=== PATIENT | female | born 1940 | race Caucasian/White ===

== ENCOUNTER 2018-04-11 13:10 | Emergency (ER) | payer MEDICARE, BC ==
--- NOTE | 2018-04-11 14:35 | ED ---
Skin/Abscess/FB HPI - General Source: patient, RN notes reviewed, old records reviewed Mode of arrival: ambulatory Limitations: no limitations <Yumiko Gloria - Last Filed: 04/13/18 08:39> <Amadeo Stauffer - Last Filed: 04/15/18 07:16> - General Chief complaint: Skin/Abscess/Foreign Body Stated complaint: Rash Time Seen by Provider: 04/11/18 13:36 - History of Present Illness Initial comments: This is a 77 year old female with CC of Right thumb swelling and redness streaking up her arm for 2 days. She reports she recently transplanted a plant into another pot. She has no recollection of bite or exposure to poison yelitza or oak. Denies any other symptoms at this time, including fever or chills. ( Yumiko Gloria) - Related Data Home Medications Medication Instructions Recorded Confirmed ALPRAZolam [Xanax] 0.5 mg PO HS PRN 06/08/15 06/08/15 Albuterol Nebulized [Ventolin 2.5 mg INHALATION RT-Q6H PRN 06/08/15 06/08/15 Nebulized] Aspirin 325 mg PO DAILY 06/08/15 06/08/15 Budesonide-Formot 160-4.5 Mcg 2 puff INHALATION RT-BID 06/08/15 06/08/15 [Symbicort 160-4.5 Mcg Inhaler] Levothyroxine Sodium [Synthroid] 112 mcg PO DAILY 06/08/15 06/08/15 Lisinopril [Prinivil] 20 mg PO DAILY 06/08/15 06/08/15 Metoprolol Tartrate [Lopressor] 50 mg PO BID 06/08/15 06/08/15 Montelukast [Singulair] 10 mg PO HS 06/08/15 06/08/15 Propylene Glycol/Peg 400/Pf 2 drop BOTH EYES Q4H 06/08/15 06/08/15 [Systane 0.3-0.4% Eye Drops] Simvastatin [Zocor] 40 mg PO HS 06/08/15 06/08/15 amLODIPine [Norvasc] 5 mg PO DAILY 06/08/15 06/08/15 Previous Rx's Medication Instructions Recorded Levofloxacin [Levaquin] 750 mg PO DAILY #7 tab 09/28/15 Sulfamethox-Tmp 800-160Mg [Bactrim 2 tab PO Q12HR 10 Days 04/11/18 DS 800-160 mg] Allergies Allergy/AdvReac Type Severity Reaction Status Date / Time Iodinated Contrast- Oral and Allergy Unknown Verified 04/11/18 13:22 IV Dye [Iodinated Contrast Media - IV Dye] nickel Allergy Unknown Verified 04/11/18 13:22 Penicillins Allergy Unknown Verified 04/11/18 13:22 Review of Systems ROS Other: All systems not noted in ROS Statement are negative. <Yumiko Gloria - Last Filed: 04/13/18 08:39> ROS Other: All systems not noted in ROS Statement are negative. <Amadeo Stauffer - Last Filed: 04/15/18 07:16> ROS Statement: Those systems with pertinent positive or pertinent negative responses have been documented in the HPI. Past Medical History Past Medical History: Asthma, COPD, GERD/Reflux, Hyperlipidemia, Hypertension, Myocardial Infarction (NE), Osteoarthritis (OA), Pneumonia, Skin Disorder, Thyroid Disorder Additional Past Medical History / Comment(s): leaky heart valve, palpatations, arthiritis, 15 pne. 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 HAS BEEN COUGHING X 1 WEEK HARSHLY AND SPUTUM STARTED OUT CLEAR BUT STATED BROUGHT UP SOME BLOOD(DENIED IT BRIENG STREKS OF BLOOD IN SPUTUM BUT RATHER A CLOT OF BLOOD. 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 Carpal tunnel Past Anesthesia/Blood Transfusion Reactions: No Reported Reaction Additional Past Anesthesia/Blood Transfusion Reaction / Comment(s): occ vertigo Past Psychological History: No Psychological Hx Reported Smoking Status: Former smoker Past Alcohol Use History: None Reported Past Drug Use History: None Reported - Past Family History Father Additional Family Medical History / Comment(s): from tb at age 44 Mother Family Medical History: Hypertension Additional Family Medical History / Comment(s): had an enlarged heart - age 64(was'nt one to go to dr) <Yumiko Gloria - Last Filed: 04/13/18 08:39> General Exam Limitations: no limitations General appearance: alert, in no apparent distress Head exam: Present: atraumatic, normocephalic, normal inspection ENT exam: Present: normal exam, mucous membranes moist Neck exam: Present: normal inspection. Absent: tenderness, meningismus, lymphadenopathy Respiratory exam: Present: normal lung sounds bilaterally. Absent: respiratory distress, wheezes, rales, rhonchi, stridor Cardiovascular Exam: Present: regular rate, normal rhythm, normal heart sounds. Absent: systolic murmur, diastolic murmur, rubs, gallop, clicks Extremities exam: Present: normal inspection, full ROM, normal capillary refill , other (Patient has swelling over left thumb, and lymphangitic streaking over wrist. No pain with ROM. ). Absent: tenderness, pedal edema, joint swelling, calf tenderness <Yumiko Gloria - Last Filed: 04/13/18 08:39> <Amadeo Stauffer - Last Filed: 04/15/18 07:16> - General Exam Comments Initial Comments: Well appearing 77 year old female, no distress (Yumiko Gloria) Course <Yumiko Gloria - Last Filed: 04/13/18 08:39> <Amadeo Stauffer - Last Filed: 04/15/18 07:16> Vital Signs 04/11/18 04/11/18 13:20 14:52 Temperature 97.6 F 97 F L Pulse Rate 90 89 Respiratory 18 16 Rate Blood Pressure 172/80 157/88 O2 Sat by Pulse 100 95 Oximetry - Reevaluation(s) Reevaluation #1: 04/15/18 07:16 PA supervision I reviewed and agree with the PAs findings including all diagnostic interpretation treatment plans less otherwise stated. (Amadeo Stauffer) Medical Decision Making <Yumiko Gloria - Last Filed: 04/13/18 08:39> <Amadeo Stauffer - Last Filed: 04/15/18 07:16> - Medical Decision Making Patient is a 77 year old female with R thumb swelling for 2 days with lymphangitic streaking. Patient has evidecne of cellulits. Patient does not know if she was bite by a spider. At this time, she has 2 small puncture wounds. Patient at had demarcation of area of erythema and streaking. At this time will start on antibiotics, and have her follow up with PCP. REturn parameters discussed. (Yumiko Gloria) Disposition Is patient prescribed a controlled substance at d/c from ED?: No Time of Disposition: 14:34 <Yumiko Gloria - Last Filed: 04/13/18 08:39> <Amadeo Stauffer - Last Filed: 04/15/18 07:16> Clinical Impression: Cellulitis of thumb, right Disposition: HOME SELF-CARE Condition: Good Instructions: Lymphangitis (ED) Additional Instructions: Patient advised to take anti-inflammatory medication Motrin Tylenol, take antibiotic as prescribed. If you have severe pain with range of motion of the thumb or any other abnormal symptoms please return to the emergency department. Patient should monitor the area of redness gets worse to return to the emergency department. Prescriptions: Sulfamethox-Tmp 800-160Mg [Bactrim DS 800-160 mg] 2 tab PO Q12HR 10 Days Referrals: Ida Davis MD [Primary Care Provider] - 1-2 days
[2018-04-11] MEDS ORDERED: SULFAMETH-TMP DS STARTER PACK 2 TAB BTL PO STA (14:39)
[2018-04-11 14:52] VITALS: BP 157/88; PULSE 89; RESP 16; TEMP 97
== END 2018-04-11 14:54 | disposition home or self-care (01) ==
LOC: EC 13:10
DX: L03.011 Cellulitis of right finger (principal); S61.031A Puncture wound without foreign body of right thumb without damage to nail, initial encounter; J44.9 Chronic obstructive pulmonary disease, unspecified; E78.5 Hyperlipidemia, unspecified; I10 Essential (primary) hypertension; I25.2 Old myocardial infarction; E07.9 Disorder of thyroid, unspecified; Z87.891 Personal history of nicotine dependence; Z98.890 Other specified postprocedural states; Z79.51 Long term (current) use of inhaled steroids; Z79.899 Other long term (current) drug therapy; Z88.0 Allergy status to penicillin; Z91.041 Radiographic dye allergy status; Z91.048 Other nonmedicinal substance allergy status; X58.XXXA Exposure to other specified factors, initial encounter
CPT/HCPCS: 99283

== ENCOUNTER 2019-02-07 16:09 | Inpatient (IN) | payer MEDICARE, BC ==
--- NOTE | 2019-02-07 16:31 | ED ---
Chest Pain HPI - General Chief Complaint: Chest Pain Stated Complaint: CHEST PAIN Time Seen by Provider: 02/07/19 16:20 Source: patient, EMS Mode of arrival: EMS Limitations: no limitations - History of Present Illness Initial Comments: 78-year-old female presenting with substernal sharp stabbing chest pain that began while at rest, was not accompanied by any anginal equivalents, and resolved after she was given nitro and aspirin by EMS. She is currently asymptomatic. Patient states she is a history of one MD with no stent placement. She had a normal stress test one year prior. She denies any history of DVT/PE, recent surgery, active cancer, hormone replacement therapy. States she has a ALLERGY to IV contrast (breaks out in a rash.) She admits to productive cough, nasal congestion, postnasal drip for the past 3 days. Admits to unilateral left lower extremity swelling that resolves with elevation and worsens when she is walking. - Related Data Home Medications Medication Instructions Recorded Confirmed ALPRAZolam [Xanax] 0.5 mg PO HS 06/08/15 02/07/19 Aspirin 325 mg PO DAILY 06/08/15 02/07/19 Lisinopril [Prinivil] 20 mg PO DAILY 06/08/15 02/07/19 Metoprolol Tartrate [Lopressor] 50 mg PO BID 06/08/15 02/07/19 Montelukast [Singulair] 10 mg PO HS 06/08/15 02/07/19 Simvastatin [Zocor] 40 mg PO HS 06/08/15 02/07/19 amLODIPine [Norvasc] 5 mg PO DAILY 06/08/15 02/07/19 Albuterol Inhaler [Ventolin Hfa 1 - 2 puff INHALATION RT-Q6H PRN 02/07/19 02/07/19 Inhaler] Cholecalciferol [Vitamin D3 (25 5,000 unit PO DAILY 02/07/19 02/07/19 Mcg = 1000 Iu)] Fluticasone/Salmeterol [Advair 1 inhalation PO RT-BID 02/07/19 02/07/19 250-50 Diskus] Levothyroxine Sodium [Synthroid] 100 mcg PO DAILY 02/07/19 02/07/19 Melatonin 5 mg PO HS 02/07/19 02/07/19 Multivitamin/Iron/Folic Acid 1 tab PO DAILY 02/07/19 02/07/19 [Centrum Women Tablet] metFORMIN HCL 1,000 mg PO DAILY 02/07/19 02/07/19 Allergies Allergy/AdvReac Type Severity Reaction Status Date / Time Iodinated Contrast- Oral and Allergy Unknown Verified 02/07/19 18:08 IV Dye [Iodinated Contrast Media - IV Dye] nickel Allergy Unknown Verified 02/07/19 18:08 Penicillins Allergy Unknown Verified 02/07/19 18:08 Review of Systems ROS Statement: Those systems with pertinent positive or pertinent negative responses have been documented in the HPI. Review of Systems Constitutional: Denies fever, chills Eyes: Denies change in vision, Denies pain Ears, nose, mouth, throat: Denies headaches, Denies sore throat Cardiovascular: Positive chest pain. Denies palpitations. Positive LLE swelling Respiratory: Denies shortness of breath, Positive cough Gastrointestinal: Denies abdominal pain. Denies nausea, vomiting, diarrhea. Genitourinary: Denies hematuria, Denies infections Musculoskeletal: Denies pain, Denies swelling Integumentary: Denies rash Neurological: Denies headache, focal weakness, focal numbness Psychiatric: Denies anxiety, Denies depression Hematologic/Lymphatic: Denies easy bleeding or bruising ROS Other: All systems not noted in ROS Statement are negative. EKG Findings - EKG Comments: EKG Findings:: EKG shows sinus rhythm with first-degree AV block. Rate 96 bpm, AL interval 214, QRS duration 86, QT/QTC 342/432. Past Medical History Past Medical History: Asthma, COPD, GERD/Reflux, Hyperlipidemia, Hypertension, Myocardial Infarction (MD), Osteoarthritis (OA), Pneumonia, Skin Disorder, Thyroid Disorder Additional Past Medical History / Comment(s): leaky heart valve, palpatations, arthiritis, 06-08-15 pne. 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 Carpal tunnel Past Anesthesia/Blood Transfusion Reactions: No Reported Reaction Additional Past Anesthesia/Blood Transfusion Reaction / Comment(s): occ vertigo Past Psychological History: No Psychological Hx Reported Smoking Status: Former smoker Past Alcohol Use History: None Reported Past Drug Use History: None Reported - Past Family History Father Additional Family Medical History / Comment(s): from tb at age 44 Mother Family Medical History: Hypertension Additional Family Medical History / Comment(s): had an enlarged heart - age 64(was'nt one to go to dr) General Exam - General Exam Comments Initial Comments: General: Awake, alert, No acute Distress HENT: Normocephalic. Atraumatic Eyes: PERRL. EOMI. No scleral icterus. No injected conjunctiva Neck: Full ROM Chest/Lungs: Clear to auscultation bilaterally. No wheezing, rhonchi, or rales Cardiac: Regular rate, rhythm. No murmurs or rubs Abdomen/GI: Soft, nontender, nondistended. No rebound, guarding, or rigidity. Musculoskeletal: Full ROM Skin: Warm, dry, intact Neurologic: A/Ox3, no weakness, no sensory deficit, no abnormal gait, no coordination deficit Limitations: no limitations Course Vital Signs 02/07/19 02/07/19 02/07/19 16:17 16:29 16:52 Temperature 97.8 F Pulse Rate 94 96 Respiratory 18 18 Rate Blood Pressure 194/97 192/86 O2 Sat by Pulse 94 L 93 L 89 L Oximetry 02/07/19 17:30 Temperature Pulse Rate 98 Respiratory 18 Rate Blood Pressure 170/89 O2 Sat by Pulse 96 Oximetry Chest Pain MDM - MDM 78-year-old female presenting with chest pain. Initial exam the patient is awake alert she is in no acute distress her vital signs are stable. EKG shows normal sinus rhythm.No ST segment elevation, depression. Patient became hypoxic on the department dropping down to 88%. She is placed on 3 L nasal cannula. She had no further chest pain on the department. Patient's laboratory workup revealed hyponatremia but otherwise was negative for acute process. Serum and urine osmo added to workup. Her d-dimer was negative. She has no swelling or calf tenderness on exam. Patient states she has some remote history of asthma however on exam she has no wheezing, no abnormal breath sounds, and no tachypnea. Patient's chest x-ray shows a left lower lobe infiltrate. She was started on Rocephin and azithromycin. Does not meet sepsis criteria. I spoke with Dr. Ponce who is agreeable to admission. - Wells Criteria Clinical Symptoms of DVT: (0) No No Alternative Diagnosis: (0) No Immobilization of Surgery in Previous 4 Weeks: (0) No Previous DVT/PE: (0) No Hemoptysis: (0) No Malignancy: (0) No Disposition Clinical Impression: CAP (community acquired pneumonia), Hyponatremia, Chest pain, Hypoxia Disposition: ADMITTED IP TO THIS [facility] Decision to Admit Reason: Admit from EC Decision Date: 02/07/19 Decision Time: 18:14
[2019-02-07 16:56] LABS: Basophils % (A) 0 %; Eosinophils # (A) 0.1 k/uL (0-0.7); Eosinophils % (A) 2 %; HCT 46.4 % (34.0-46.0); HGB 15.7 gm/dL (11.4-16.0); Lymphocytes # (A) 1.8 k/uL (1.0-4.8); Lymphocytes % (A) 24 %; MCH 27.9 pg (25.0-35.0); MCHC 33.8 g/dL (31.0-37.0); MCV 82.3 fL (80.0-100.0); Mean Platelet Volume 6.5; Monocytes # (A) 0.4 k/uL (0-1.0); Monocytes % (A) 6 %; Neutrophils % (A) 66 %; Platelet Count 319 k/uL (150-450); RBC 5.64 m/uL (3.80-5.40); WBC 7.6 k/uL (3.8-10.6)
[2019-02-07 17:11] LABS: ALT 30 U/L (9-52); AST 37 U/L (14-36); Albumin 4.7 g/dL (3.5-5.0); Alkaline Phosphatase 62 U/L (38-126); Anion Gap 13 mmol/L; Bilirubin, Delta 0.3 mg/dL (0.0-0.2); Bilirubin,Unconjugated 0.4 mg/dL (0.0-1.1); Blood Urea Nitrogen 11 mg/dL (7-17); Carbon Dioxide 24 mmol/L (22-30); Chloride 89 mmol/L (98-107); Glucose 129 mg/dL (74-99); Lipase 207 U/L (23-300); Sodium 126 mmol/L (137-145); Total Bilirubin 0.7 mg/dL (0.2-1.3); Total Protein 7.1 g/dL (6.3-8.2)
[2019-02-07 17:13] LABS: Potassium 4.5 mmol/L (3.5-5.1)
[2019-02-07] MEDS ORDERED: cefTRIAXone IN SWFI 1,000 MG/10 ML SYRINGE IVP STA (17:56)
[2019-02-07] MEDS ORDERED: AZITHROMYCIN 500 MG in SODIUM CHLORIDE 0.9% 250 ML IVPB STA ×2 (17:58→19:55)
[2019-02-07] MEDS ORDERED: IBUPROFEN 400 MG TAB PO PRN (18:14)
[2019-02-07] MEDS ORDERED: HYDROcodone/APAP 5-325MG 1 EACH TAB PO PRN (18:14)
[2019-02-07] MEDS ORDERED: ONDANSETRON 4 MG/2 ML VIAL IVP PRN (18:14)
[2019-02-07] MEDS ORDERED: NALOXONE 0.4 MG/ML 1 ML VIAL IV PRN (18:14)
[2019-02-07] MEDS ORDERED: ALBUTEROL NEBULIZED 2.5 MG/3 ML INHALATION PRN (18:17)
--- NOTE | 2019-02-07 18:20 | XR ---
EXAMINATION TYPE: XR chest 2V DATE OF EXAM: 02/07/2019 COMPARISON: 06/12/2015 INDICATION: Pain TECHNIQUE: Frontal and lateral views of the chest are obtained. FINDINGS: The heart size is normal. The pulmonary vasculature is normal. There may be a lingular infiltrate. Increased lung markings are in the left perihilar midlung. Nodules in the left upper lobe estimated at 0.7 cm. This is larger than comparison. Follow-up CT ches t is recommended. Emphysematous changes are at the lung apices.. IMPRESSION: 1. Lingular infiltrate. Correlate for atelectasis or pneumonia. 2. Increasing pulmonary nodule size left upper lobe. CT of chest recommended for additional evaluatio n. Neoplasm is not excluded. 3. Upper lobe emphysematous changes.
[2019-02-07 19:53] LABS: Appearance,Urine Clear (Clear); Bilirubin,Urine Negative (Negative); Blood,Urine Negative (Negative); Color,Urine Colorless; Glucose,Urine (UA) Negative (Negative); Ketones,Urine Negative (Negative); Leukocyte Esterase,Urine Negative (Negative); Nitrite,Urine Negative (Negative); PH, Urine 7.5 (5.0-8.0); Protein,Urine Trace (Negative); Specific Gravity,Urine 1.005 (1.001-1.035); Urobilinogen,Urine <2.0 mg/dL (<2.0)
[2019-02-07] MEDS: SYMBICORT 80-4.5 MCG INHALER INHALATION SCH (20:07)
[2019-02-07 21:02] VITALS: BMI 32.4
[2019-02-07] MEDS: MONTELUKAST 10 MG TAB PO SCH (21:13)
[2019-02-07] MEDS: MELATONIN 5 MG TABLET PO SCH (21:13)
[2019-02-07] MEDS: ALPRAZolam 0.5 MG TAB PO SCH (21:13)
[2019-02-07] MEDS: METOPROLOL TARTRATE 50 MG TAB PO SCH (21:14)
[2019-02-07] MEDS: ATORVASTATIN 20 MG TAB PO SCH (21:14)
[2019-02-08 05:48] LABS: Glucose,Whole Blood 110 mg/dL (75-99)
[2019-02-08] MEDS: ACETAMINOPHEN TAB 325 MG TAB PO PRN ×2 (06:00→14:23)
[2019-02-08] MEDS: metFORMIN 500 MG TAB PO SCH (06:00)
[2019-02-08] MEDS: LEVOTHYROXINE 100 MCG TAB PO SCH (06:00)
[2019-02-08] MEDS: SYMBICORT 80-4.5 MCG INHALER INHALATION SCH ×2 (08:40→20:23)
[2019-02-08] MEDS: MULTIVITAMINS, THERA 1 EACH TAB PO SCH (09:59)
[2019-02-08] MEDS: METOPROLOL TARTRATE 50 MG TAB PO SCH ×2 (09:59→17:07)
[2019-02-08] MEDS: CHOLECALCIFEROL 1,000 UNIT TAB PO SCH (09:59)
[2019-02-08] MEDS: amLODIPine 5 MG TAB PO SCH (09:59)
[2019-02-08] MEDS: LISINOPRIL 20 MG TAB PO SCH (10:00)
[2019-02-08 11:44] LABS: Glucose,Whole Blood 107 mg/dL (75-99)
--- NOTE | 2019-02-08 12:17 | P.CRDCN ---
History of Present Illness Consult date: 02/08/19 Chief complaint: Chest pain History of present illness: This is a pleasant 78-year-old female patient who I follow in the office as an outpatient with a past medical history significant for diabetes, hypertension, and dyslipidemia, presented to the emergency room complaining of chest discomfort. The chest discomfort started this past Friday when she was doing some shopping and started experiencing discomfort in the mid of the chest, sharp pain, without any radiation to the arm or neck or shoulders, and without any associated symptoms of shortness of breath, sweating, nausea or vomiting, or syncope. The patient did have another episode yesterday. Again she had another episode earlier today. Because of that she decided to come to the emergency room. She stated that she has been struggling with upper respiratory infection recently with sore throat and runny nose and lately she has been experiencing also some cough with some sputum. No fever and no chills. The EKG showed sinus rhythm without any ischemic ST or T-wave abnormalities. The cardiac enzymes were checked and came in to be unremarkable. The chest x-ray showed what it seems to be possible and pneumonia. Currently the patient is on antibiotic with azithromycin as well as Rocephin. The last stress test was performed as an outpatient more than a year ago. Past Medical History Past Medical History: Asthma, COPD, GERD/Reflux, Hyperlipidemia, Hypertension, Myocardial Infarction (CA), Osteoarthritis (OA), Pneumonia, Skin Disorder, Thyroid Disorder Additional Past Medical History / Comment(s): leaky heart valve, palpatations, arthiritis, 924-15 pne. 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 Carpal tunnel Past Anesthesia/Blood Transfusion Reactions: No Reported Reaction Additional Past Anesthesia/Blood Transfusion Reaction / Comment(s): occ vertigo Past Psychological History: No Psychological Hx Reported Smoking Status: Former smoker Past Alcohol Use History: None Reported Past Drug Use History: None Reported - Past Family History Father Additional Family Medical History / Comment(s): from tb at age 44 Mother Family Medical History: Hypertension Additional Family Medical History / Comment(s): had an enlarged heart - age 64(was'nt one to go to dr) Medications and Allergies Home Medications Medication Instructions Recorded Confirmed Type ALPRAZolam [Xanax] 0.5 mg PO HS 06/08/15 02/07/19 History Aspirin 325 mg PO DAILY 06/08/15 02/07/19 History Lisinopril [Prinivil] 20 mg PO DAILY 06/08/15 02/07/19 History Metoprolol Tartrate [Lopressor] 50 mg PO BID 06/08/15 02/07/19 History Montelukast [Singulair] 10 mg PO HS 06/08/15 02/07/19 History Simvastatin [Zocor] 40 mg PO HS 06/08/15 02/07/19 History amLODIPine [Norvasc] 5 mg PO BID 06/08/15 02/07/19 History Albuterol Inhaler [Ventolin Hfa 1 - 2 puff INHALATION RT-Q6H PRN 02/07/19 02/07/19 History Inhaler] Cholecalciferol [Vitamin D3 (25 5,000 unit PO DAILY 02/07/19 02/07/19 History Mcg = 1000 Iu)] Fluticasone/Salmeterol [Advair 1 inhalation PO RT-BID 02/07/19 02/07/19 History 250-50 Diskus] Levothyroxine Sodium [Synthroid] 100 mcg PO DAILY 02/07/19 02/07/19 History Melatonin 5 mg PO HS 02/07/19 02/07/19 History Multivitamin/Iron/Folic Acid 1 tab PO DAILY 02/07/19 02/07/19 History [Centrum Women Tablet] metFORMIN HCL 1,000 mg PO DAILY 02/07/19 02/07/19 History Hydrochlorothiazide 25 mg PO DAILY 02/08/19 02/08/19 History Allergies Allergy/AdvReac Type Severity Reaction Status Date / Time Iodinated Contrast- Oral and Allergy Unknown Verified 02/07/19 18:08 IV Dye [Iodinated Contrast Media - IV Dye] nickel Allergy Unknown Verified 02/07/19 18:08 Penicillins Allergy Unknown Verified 02/07/19 18:08 Latex, Natural Rubber AdvReac Rash/Hives Verified 02/08/19 00:03 tuberculin,PPD,multi-puncture AdvReac Rash/Hives Verified 02/08/19 00:03 Physical Exam Vitals: Vital Signs Temp Pulse Pulse Resp BP BP Pulse Ox 02/08/19 09:57 97.6 F 86 16 144/73 93 L 02/08/19 04:00 75 16 155/76 97 02/08/19 00:00 77 18 107/67 97 02/07/19 20:00 98 20 02/07/19 19:53 102 H 20 144/90 95 02/07/19 18:31 97.8 F 98 18 159/79 96 02/07/19 17:30 98 18 170/89 96 02/07/19 16:52 89 L 02/07/19 16:29 96 18 192/86 93 L 02/07/19 16:17 97.8 F 94 18 194/97 94 L Intake and Output 02/07/19 02/08/19 02/08/19 22:59 06:59 14:59 Intake Total 300 240 Balance 300 240 Intake: Oral 300 240 Other: Voiding Method Toilet # Voids 1 1 Weight 80.739 kg 83.1 kg - Constitutional General appearance: no acute distress - Respiratory Respiratory: bilateral: CTA - Cardiovascular Rhythm: regular Heart sounds: normal: S1, S2 Results 02/07/19 16:13 02/07/19 16:13 Cardiac Enzymes 02/07/19 02/07/19 02/07/19 Range/Units 16:13 16:13 21:33 AST 37 H (14-36) U/L Troponin I <0.012 <0.012 (0.000-0.034) ng/mL 02/08/19 Range/Units 04:06 AST (14-36) U/L Troponin I <0.012 (0.000-0.034) ng/mL CBC 02/07/19 Range/Units 16:13 WBC 7.6 (3.8-10.6) k/uL RBC 5.64 H (3.80-5.40) m/uL Hgb 15.7 (11.4-16.0) gm/dL Hct 46.4 H (34.0-46.0) % Plt Count 319 (150-450) k/uL Comprehensive Metabolic Panel 02/07/19 Range/Units 16:13 Sodium 126 L (137-145) mmol/L Potassium 4.5 (3.5-5.1) mmol/L Chloride 89 L (98-107) mmol/L Carbon Dioxide 24 (22-30) mmol/L BUN 11 (7-17) mg/dL Creatinine 0.62 (0.52-1.04) mg/dL Glucose 129 H (74-99) mg/dL Calcium 10.0 (8.4-10.2) mg/dL Unconjugated Bilirubin 0.4 (0.0-1.1) mg/dL AST 37 H (14-36) U/L ALT 30 (9-52) U/L Alkaline Phosphatase 62 (38-126) U/L Total Protein 7.1 (6.3-8.2) g/dL Albumin 4.7 (3.5-5.0) g/dL Current Medications Generic Name Dose Route Start Last Admin Trade Name Freq PRN Reason Stop Dose Admin Acetaminophen 650 mg 02/07/19 18:14 02/08/19 06:00 Tylenol Tab PO 650 mg Q6HR PRN Administration Mild Pain or Fever > 100.5 Hydrocodone Bitart/Acetaminophen 1 each 02/07/19 18:14 Winston 5-325 PO Q4HR PRN Moderate Pain Albuterol Sulfate 2.5 mg 02/07/19 18:17 Ventolin Nebulized INHALATION RT-Q6H PRN Shortness Of Breath Alprazolam 0.5 mg 02/07/19 21:00 02/07/19 21:13 Xanax PO 0.5 mg HS JUDY Administration Amlodipine Besylate 5 mg 02/08/19 09:00 02/08/19 09:59 Norvasc PO 5 mg DAILY JUDY Administration Aspirin 325 mg 02/08/19 10:00 Aspirin PO DAILY JUDY Atorvastatin Calcium 20 mg 02/07/19 21:00 02/07/19 21:14 Lipitor PO 20 mg HS JUDY Administration Azithromycin 500 mg 02/08/19 11:45 Zithromax PO DAILY JUDY Budesonide/Formoterol Fumarate 2 puff 02/07/19 20:00 02/08/19 08:40 Symbicort 80-4.5 Mcg Inhaler INHALATION 2 puff RT-BID JUDY Administration Cholecalciferol 5,000 unit 02/08/19 09:00 02/08/19 09:59 Vitamin D3 (25 Mcg = 1000 Iu) PO 5,000 unit DAILY JUDY Administration Sodium Chloride 1,000 mls @ 100 mls/hr 02/08/19 11:45 Saline 0.9% IV .Q10H JUDY Ibuprofen 400 mg 02/07/19 18:14 Motrin PO Q6HR PRN Mild Pain or Fever > 100.5 Levothyroxine Sodium 100 mcg 02/08/19 06:30 02/08/19 06:00 Synthroid PO 100 mcg DAILY@0630 JUDY Administration Lisinopril 20 mg 02/08/19 09:00 02/08/19 10:00 Zestril PO 20 mg DAILY JUDY Administration Melatonin 5 mg 02/07/19 21:00 02/07/19 21:13 Melatonin PO 5 mg HS JUDY Administration Metformin HCl 1,000 mg 02/08/19 07:30 02/08/19 06:00 Glucophage PO 1,000 mg [id number] JUDY Administration Metoprolol Tartrate 50 mg 02/07/19 21:00 02/08/19 09:59 Lopressor PO 50 mg BID JUDY Administration Montelukast Sodium 10 mg 02/07/19 21:00 02/07/19 21:13 Singulair PO 10 mg HS JUDY Administration Multivitamins 1 each 02/08/19 09:00 02/08/19 09:59 Theragran PO 1 each DAILY JUDY Administration Naloxone HCl 0.2 mg 02/07/19 18:14 Narcan IV Q2M PRN Opioid Reversal Ondansetron HCl 4 mg 02/07/19 18:14 Zofran IVP Q8HR PRN Nausea And Vomiting Intake and Output 02/07/19 02/08/19 02/08/19 22:59 06:59 14:59 Intake Total 300 240 Balance 300 240 Intake: Oral 300 240 Other: Voiding Method Toilet # Voids 1 1 Weight 80.739 kg 83.1 kg 02/07/19 16:13 02/07/19 16:13 Assessment and Plan Assessment: Assessment #1 intermittent episodes of chest discomfort #2 possible pneumonia #3 diabetes type 2 #4 hypertension #5 dyslipidemia Plan #1 the patient is on antibiotic for pneumonia #2 acute coronary event was ruled out #3 the chest discomfort could be secondary to pneumonia but severe CAD to be ruled out giving her multiple risk factors including diabetes #4 at this point, would get an echocardiogram was Doppler #5 follow-up with the patient. #6 stress test to be performed, likely to be done as an outpatient. Thank you for allowing us participate in her care and we will continue following up with the patient
--- NOTE | 2019-02-08 12:29 | P.HPIM ---
History of Present Illness 78-year-old female came to ER with complaints of chest pain started yesterday while she was shopping sharp in nature lasted for a few minutes does have chest wall tenderness and patient is chest pain appears to be coming from chest wall did not improve with the nitroglycerin denied any suspicious shortness of breath diaphoresis nausea vomiting lightheadedness chest pain and a sharp in nature in the retrosternal area nonradiating and not associated with food as a deep breathing. Patient had a cardiac history in the past with the stents in the past. Patient EKG did not show any acute ST-T wave changes troponins are negative. Patient incidentally found to have infiltrate in the right the lingular area which I reviewed by myself and not that impressive and patient does have very minimal sputum production which is not dark in color I do not believe patient has pneumonia. The other issue is her serum sodium is 126. Patient on hydrocodone present that will be held patient will be hydrated with IV fluids will repeat serum sodium tomorrow if that's okay patient will be discharged tomorrow, patient also appears to have sinusitis for which patient will be started on azithromycin. Rocephin will be discontinued. Review of Systems REVIEW OF SYSTEMS: CONSTITUTIONAL: No fever, no malaise, no fatigue. HEENT: No recent visual problems or hearing problems. Denied any sore throat. CARDIOVASCULAR: No orthopnea, PND, no palpitations, no syncope. PULMONARY: No shortness of breath, no cough, no hemoptysis. GASTROINTESTINAL: No diarrhea, no nausea, no vomiting, no abdominal pain. NEUROLOGICAL: No headaches, no weakness, no numbness. HEMATOLOGICAL: Denies any bleeding or petechiae. GENITOURINARY: Denies any burning micturition, frequency, or urgency. MUSCULOSKELETAL/RHEUMATOLOGICAL: Denies any joint pain, swelling, or any muscle pain. ENDOCRINE: Denies any polyuria or polydipsia. The rest of the 14-point review of systems is negative. Past Medical History Past Medical History: Asthma, COPD, GERD/Reflux, Hyperlipidemia, Hypertension, Myocardial Infarction ([place]), Osteoarthritis (OA), Pneumonia, Skin Disorder, Thyroid Disorder Additional Past Medical History / Comment(s): leaky heart valve, palpatations, arthiritis, 9-24-15 pne. 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 Carpal tunnel Past Anesthesia/Blood Transfusion Reactions: No Reported Reaction Additional Past Anesthesia/Blood Transfusion Reaction / Comment(s): occ vertigo Past Psychological History: No Psychological Hx Reported Smoking Status: Former smoker Past Alcohol Use History: None Reported Past Drug Use History: None Reported - Past Family History Father Additional Family Medical History / Comment(s): from tb at age 44 Mother Family Medical History: Hypertension Additional Family Medical History / Comment(s): had an enlarged heart - age 64(was'nt one to go to dr) Medications and Allergies Home Medications Medication Instructions Recorded Confirmed Type ALPRAZolam [Xanax] 0.5 mg PO HS 06/08/15 02/07/19 History Aspirin 325 mg PO DAILY 06/08/15 02/07/19 History Lisinopril [Prinivil] 20 mg PO DAILY 06/08/15 02/07/19 History Metoprolol Tartrate [Lopressor] 50 mg PO BID 06/08/15 02/07/19 History Montelukast [Singulair] 10 mg PO HS 06/08/15 02/07/19 History Simvastatin [Zocor] 40 mg PO HS 06/08/15 02/07/19 History amLODIPine [Norvasc] 5 mg PO BID 06/08/15 02/07/19 History Albuterol Inhaler [Ventolin Hfa 1 - 2 puff INHALATION RT-Q6H PRN 02/07/19 02/07/19 History Inhaler] Cholecalciferol [Vitamin D3 (25 5,000 unit PO DAILY 02/07/19 02/07/19 History Mcg = 1000 Iu)] Fluticasone/Salmeterol [Advair 1 inhalation PO RT-BID 02/07/19 02/07/19 History 250-50 Diskus] Levothyroxine Sodium [Synthroid] 100 mcg PO DAILY 02/07/19 02/07/19 History Melatonin 5 mg PO HS 02/07/19 02/07/19 History Multivitamin/Iron/Folic Acid 1 tab PO DAILY 02/07/19 02/07/19 History [Centrum Women Tablet] metFORMIN HCL 1,000 mg PO DAILY 02/07/19 02/07/19 History Hydrochlorothiazide 25 mg PO DAILY 02/08/19 02/08/19 History Allergies Allergy/AdvReac Type Severity Reaction Status Date / Time Iodinated Contrast- Oral and Allergy Unknown Verified 02/07/19 18:08 IV Dye [Iodinated Contrast Media - IV Dye] nickel Allergy Unknown Verified 02/07/19 18:08 Penicillins Allergy Unknown Verified 02/07/19 18:08 Latex, Natural Rubber AdvReac Rash/Hives Verified 02/08/19 00:03 tuberculin,PPD,multi-puncture AdvReac Rash/Hives Verified 02/08/19 00:03 Physical Exam Vitals: Vital Signs Temp Pulse Pulse Resp BP BP Pulse Ox 02/08/19 09:57 97.6 F 86 16 144/73 93 L 02/08/19 04:00 75 16 155/76 97 02/08/19 00:00 77 18 107/67 97 02/07/19 20:00 98 20 02/07/19 19:53 102 H 20 144/90 95 02/07/19 18:31 97.8 F 98 18 159/79 96 02/07/19 17:30 98 18 170/89 96 02/07/19 16:52 89 L 02/07/19 16:29 96 18 192/86 93 L 02/07/19 16:17 97.8 F 94 18 194/97 94 L Intake and Output 02/07/19 02/08/19 02/08/19 22:59 06:59 14:59 Intake Total 300 240 Balance 300 240 Intake: Oral 300 240 Other: Voiding Method Toilet # Voids 1 1 Weight 80.739 kg 83.1 kg PHYSICAL EXAMINATION: GENERAL: The patient is alert and oriented x3, not in any acute distress. Well developed, well nourished. HEENT: Pupils are round and equally reacting to light. EOMI. No scleral icterus. No conjunctival pallor. Normocephalic, atraumatic. No pharyngeal erythema. No thyromegaly. CARDIOVASCULAR: S1 and S2 present. No murmurs, rubs, or gallops. PULMONARY: Chest is clear to auscultation, no wheezing or crackles. Does have chest wall tenderness ABDOMEN: Soft, nontender, nondistended, normoactive bowel sounds. No palpable organomegaly. MUSCULOSKELETAL: No joint swelling or deformity. EXTREMITIES: No cyanosis, clubbing, or pedal edema. NEUROLOGICAL: Gross neurological examination did not reveal any focal deficits. SKIN: No rashes. Results CBC & Chem 7: 02/07/19 16:13 02/07/19 16:13 Labs: Abnormal Lab Results - Last 24 Hours (Table) 02/07/19 02/07/19 02/07/19 Range/Units 16:13 16:13 19:20 RBC 5.64 H (3.80-5.40) m/uL Hct 46.4 H (34.0-46.0) % Sodium 126 L (137-145) mmol/L Chloride 89 L (98-107) mmol/L Glucose 129 H (74-99) mg/dL POC Glucose (mg/dL) (75-99) mg/dL Osmolality 260 L (280-301) mosm/kg Delta Bilirubin 0.3 H (0.0-0.2) mg/dL AST 37 H (14-36) U/L Urine Protein (Negative) 02/07/19 02/08/19 02/08/19 Range/Units 19:20 05:47 11:42 RBC (3.80-5.40) m/uL Hct (34.0-46.0) % Sodium (137-145) mmol/L Chloride (98-107) mmol/L Glucose (74-99) mg/dL POC Glucose (mg/dL) 110 H 107 H (75-99) mg/dL Osmolality (280-301) mosm/kg Delta Bilirubin (0.0-0.2) mg/dL AST (14-36) U/L Urine Protein Trace H (Negative) Thrombosis Risk Factor Assmnt - Choose All That Apply Any of the Below Risk Factors Present?: Yes Each Factor Represents 1 point: Abnormal pulmonary function (COPD), Obesity (BMI >25), Serious lung disease incl. pneumonia (< 1month) Other Risk Factors: Yes Each Risk Factor Represents 3 Points: Age 75 years or older Thrombosis Risk Factor Assessment Total Risk Factor Score: 6 Thrombosis Risk Factor Assessment Level: High Risk Assessment and Plan Plan: -Chest pain: Rule out a concurrent syndromes atypical [place] skeletal nature no further intervention at this point of time cardiology evaluated the patient. -Sinusitis for which we'll use his mycin no evidence of pneumonia clinically. -Hyponatremia secondary to hydrochlorothiazide that will be discontinued and patient was started on IV fluids and recheck the basic metabolic profile tomorrow possibility of discharge tomorrow -COPD without any acute exacerbation next and epigastric reflux disease - hyperlipidemia -Hypertension -Osteoarthritis -Hypothyroidism DVT prophylaxis early ambulation
[2019-02-08] MEDS: AZITHROMYCIN 500 MG TAB PO SCH (12:55)
[2019-02-08] MEDS: ASPIRIN 325 MG TAB PO SCH (12:56)
[2019-02-08] MEDS: SODIUM CHLORIDE 0.9% 1,000 ML IV SCH ×2 (12:56→22:20)
[2019-02-08] MEDS: ATORVASTATIN 20 MG TAB PO SCH (17:07)
[2019-02-08] MEDS: ALPRAZolam 0.5 MG TAB PO SCH (22:19)
[2019-02-08] MEDS: MELATONIN 5 MG TABLET PO SCH (22:19)
[2019-02-08] MEDS: MONTELUKAST 10 MG TAB PO SCH (22:19)
[2019-02-08 22:50] VITALS: RESP 20
[2019-02-09 05:26] VITALS: BP 164/77; PULSE 97; TEMP 98.2
[2019-02-09] MEDS: LEVOTHYROXINE 100 MCG TAB PO SCH (05:48)
[2019-02-09] MEDS: ASPIRIN 325 MG TAB PO SCH (06:59)
[2019-02-09] MEDS: metFORMIN 500 MG TAB PO SCH (06:59)
[2019-02-09] MEDS: amLODIPine 5 MG TAB PO SCH (07:00)
[2019-02-09] MEDS: AZITHROMYCIN 500 MG TAB PO SCH (07:00)
[2019-02-09] MEDS: MULTIVITAMINS, THERA 1 EACH TAB PO SCH (07:00)
[2019-02-09] MEDS: SODIUM CHLORIDE 0.9% 1,000 ML IV SCH (07:00)
[2019-02-09] MEDS: LISINOPRIL 20 MG TAB PO SCH (07:00)
[2019-02-09] MEDS: METOPROLOL TARTRATE 50 MG TAB PO SCH (07:00)
[2019-02-09] MEDS: CHOLECALCIFEROL 1,000 UNIT TAB PO SCH (07:00)
[2019-02-09] MEDS: SYMBICORT 80-4.5 MCG INHALER INHALATION SCH (07:42)
[2019-02-09 10:07] LABS: Anion Gap 14 mmol/L; Blood Urea Nitrogen 11 mg/dL (7-17); Calcium 9.8 mg/dL (8.4-10.2); Carbon Dioxide 22 mmol/L (22-30); Chloride 98 mmol/L (98-107); Glucose 157 mg/dL (74-99); Potassium 4.3 mmol/L (3.5-5.1); Sodium 134 mmol/L (137-145)
--- NOTE | 2019-02-09 10:22 | ECHOF ---
Referral Reason:chest pain MEASUREMENTS -------- HEIGHT: 160.0 cm WEIGHT: 83.0 kg BP: 164/77 RVIDd: 3.1 cm (< 3.3) IVSd: 1.4 cm (0.6 - 1.1) LVIDd: 4.6 cm (3.9 - 5.3) LVPWd: 1.4 cm (0.6 - 1.1) IVSs: 1.8 cm LVIDs: 3.2 cm LVPWs: 2.0 cm LAESV Index (A-L): 25.13 ml/m Ao Diam: 2.6 cm (2.0 - 3.7) AV Cusp: 1.8 cm (1.5 - 2.6) LA Diam: 3.8 cm (2.7 - 3.8) EPSS: 0.6 cm MV E Pérez: 0.83 m/s MV DecT: 230 ms MV A Pérez: 1.20 m/s MV E/A Ratio: 0.69 RAP: 5.00 mmHg RVSP: 31.18 mmHg MV EF SLOPE: 121.10 mm/s (70 - 150) MV EXCURSION: 1.72 cm (> 18.000) FINDINGS -------- Sinus rhythm. This was a technically adequate study. The left ventricular size is normal. There is moderate concentric left ventricular hypertrophy. O verall left ventricular systolic function is normal with, an EF between 55 - 60 %. The right ventricle is normal in size. Left atrium is normal size by volume. The right atrium is normal in size and function. Interatrial and interventricular septum intact. Aortic valve is trileaflet and is moderately thickened. Mild mitral annular calcification present. Moderate mitral regurgitation is present. Mild tricuspid regurgitation present. There is no evidence of pulmonary hypertension. The right v entricular systolic pressure, as measured by Doppler, is 31.18mmHg. There is no pulmonic regurgitation present. The aortic root size is normal. Normal inferior vena cava with normal inspiratory collapse consistent with estimated right atrial pre ssure of 10 mmHg. There is no pericardial effusion. CONCLUSIONS -------- 1. Sinus rhythm. 2. This was a technically adequate study. 3. The left ventricular size is normal. 4. There is moderate concentric left ventricular hypertrophy. 5. Overall left ventricular systolic function is normal with, an EF between 55 - 60 %. 6. The right ventricle is normal in size. 7. Left atrium is normal size by volume. 8. The right atrium is normal in size and function. 9. Interatrial and interventricular septum intact. 10. Aortic valve is trileaflet and is moderately thickened. 11. Mild mitral annular calcification present. 12. Moderate mitral regurgitation is present. 13. Mild tricuspid regurgitation present. 14. There is no evidence of pulmonary hypertension. 15. The right ventricular systolic pressure, as measured by Doppler, is 31.18mmHg. 16. There is no pulmonic regurgitation present. 17. The aortic root size is normal. 18. Normal inferior vena cava with normal inspiratory collapse consistent with estimated right atrial pressure of 10 mmHg. 19. There is no pericardial effusion. TESTER ELECTRONIC SCALE: Estefany Mendoza RDCS
--- NOTE | 2019-02-09 10:27 | P.PN ---
Subjective This is a pleasant 78-year-old female past medical history significant for hypertension, dyslipidemia and diabetes mellitus. She follows in the office with Dr. Silverio. We're following her for an episode of chest discomfort. She is currently being treated for community-acquired pneumonia on IV antibiotics. Laboratory data reviewed, sodium 134, potassium 4.3, creatinine 0.66. Blood pressure 164/77 heart rate 97 afebrile maintaining oxygen saturation on room air. Echocardiogram obtained reveals preserved LV systolic function with e jection fraction 55-60%, moderate mitral regurgitation and mild tricuspid regurgitation noted. The patient is seen and examined resting comfortably laying flat in bed in no acute distress. She denies any further symptoms of chest discomfort. Currently maintained on amlodipine 5 mg daily, aspirin 325 mg daily, atorvastatin 20 mg daily, lisinopril 20 mg daily and Lopressor 50 mg twice a day. GENERAL: Well-appearing, well-nourished and in no acute distress. NECK: Supple without JVD or thyromegaly. LUNGS: Breath sounds clear to auscultation bilaterally. Respiration equal and unlabored. No wheezes, rales or rhonchi. HEART: Regular rate and rhythm with systolic ejection murmur at the apex, no rubs or gallops. S1 and S2 heard. EXTREMITIES: Normal range of motion, 1+ bilateral lower extremity pitting edema. No clubbing or cyanosis. Peripheral pulses intact. ASSESSMENT Chest discomfort, atypical for angina. Most likely related to underlying pneumonia. An acute coronary event has been ruled out. Pneumonia Hyponatremia on admission Hypertension Dyslipidemia PLAN Hyponatremia has improved. Increase amlodipine to 10 mg daily for blood pressure control since discontinuing hydrochlorothiazide. Clinically she is stable from a cardiac perspective. Ongoing medical management. Follow up with Dr. Silverio upon discharge for further outpatient testing. We will continue to follow as needed. Nurse Practitioner note has been reviewed, I agree with a documented findings and plan of care. Patient was seen and examined. Objective - Vital Signs Vital signs: Vital Signs Temp 98.2 F 02/09/19 05:00 Pulse 97 02/09/19 05:00 Resp 20 02/09/19 05:00 BP 164/77 02/09/19 05:00 Pulse Ox 92 L 02/09/19 05:00 Intake & Output 02/08/19 02/09/19 02/09/19 18:59 06:59 18:59 Intake Total 462 300 200 Balance 462 300 200 Intake: Oral 462 300 200 Other: Voiding Method Toilet # Voids 3 2 - Labs CBC & Chem 7: 02/07/19 16:13 02/09/19 09:13 Labs: Abnormal Lab Results - Last 24 Hours (Table) 02/08/19 02/09/19 Range/Units 11:42 09:13 Sodium 134 L (137-145) mmol/L Glucose 157 H (74-99) mg/dL POC Glucose (mg/dL) 107 H (75-99) mg/dL
[2019-02-09] MEDS ORDERED: amLODIPine 5 MG TAB PO STA (10:30)
--- NOTE | 2019-02-09 16:11 | P.DS ---
Providers Date of admission: 02/07/19 18:15 Attending physician: Rashid Mclean MD Consults: 02/08/19 11:40 Consult Physician Routine Consulting Provider: Drew Silverio Consult Reason/Comments: Chest pain Do you want consulting provider notified?: Yes Primary care physician: Ida Susan [place] Hospital Course: 78-year-old female came to ER with complaints of chest pain started yesterday while she was shopping sharp in nature lasted for a few minutes does have chest wall tenderness and patient is chest pain appears to be coming from chest wall did not improve with the nitroglycerin denied any suspicious shortness of breath diaphoresis nausea vomiting lightheadedness chest pain and a sharp in nature in the retrosternal area nonradiating and not associated with food as a deep breathing. Patient had a cardiac history in the past with the stents in the past. Patient EKG did not show any acute ST-T wave changes troponins are negative. Patient incidentally found to have infiltrate in the right the ling ular area which I reviewed by myself and not that impressive and patient does have very minimal sputum production which is not dark in color I do not believe patient has pneumonia. The other issue is her serum sodium is 126. Patient on hydrocodone present that will be held patient will be hydrated with IV fluids will repeat serum sodium tomorrow if that's okay patient will be discharged tomorrow, patient also appears to have sinusitis for which patient will be started on azithromycin. Rocephin will be discontinued. 02/09/2019 Serum sodium improved patient is feeling much better will be discharged today. Serum sodium is 134 today patient's amlodipine dose will be increased to 5 mg hydrocodone thiazide will be discontinued PHYSICAL EXAMINATION: GENERAL: The patient is alert and oriented x3, not in any acute distress. Well developed, well nourished. HEENT: Pupils are round and equally reacting to light. EOMI. No scleral icterus. No conjunctival pallor. Normocephalic, atraumatic. No pharyngeal erythema. No thyromegaly. CARDIOVASCULAR: S1 and S2 present. No murmurs, rubs, or gallops. PULMONARY: Chest is clear to auscultation, no wheezing or crackles. ABDOMEN: Soft, nontender, nondistended, normoactive bowel sounds. No palpable organomegaly. MUSCULOSKELETAL: No joint swelling or deformity. EXTREMITIES: No cyanosis, clubbing, or pedal edema. NEUROLOGICAL: Gross neurological examination did not reveal any focal deficits. SKIN: No rashes. Refer to my dictation of H&P for further details of hospitalization course and other chronic medical problems that were addressed during this hospitalization Patient Condition at Discharge: Good Plan - Discharge Summary Discharge Rx Participant: Yes New Discharge Prescriptions: New amLODIPine [Norvasc] 10 mg PO DAILY tab Azithromycin [Zithromax] 500 mg PO DAILY #3 tab Continue amLODIPine [Norvasc] 5 mg PO BID Metoprolol Tartrate [Lopressor] 50 mg PO BID Lisinopril [Prinivil] 20 mg PO DAILY Aspirin 325 mg PO DAILY ALPRAZolam [Xanax] 0.5 mg PO HS Simvastatin [Zocor] 40 mg PO HS Montelukast [Singulair] 10 mg PO HS Multivitamin/Iron/Folic Acid [Centrum Women Tablet] 1 tab PO DAILY Cholecalciferol [Vitamin D3 (25 Mcg = 1000 Iu)] 5,000 unit PO DAILY metFORMIN HCL 1,000 mg PO DAILY Melatonin 5 mg PO HS Levothyroxine Sodium [Synthroid] 100 mcg PO DAILY Fluticasone/Salmeterol [Advair 250-50 Diskus] 1 inhalation PO RT-BID Albuterol Inhaler [Ventolin Hfa Inhaler] 1 - 2 puff INHALATION RT-Q6H PRN PRN Reason: Shortness Of Breath Discontinued Hydrochlorothiazide 25 mg PO DAILY Discharge Medication List ALPRAZolam [Xanax] 0.5 mg PO HS 06/08/15 [History] Aspirin 325 mg PO DAILY 06/08/15 [History] Lisinopril [Prinivil] 20 mg PO DAILY 06/08/15 [History] Metoprolol Tartrate [Lopressor] 50 mg PO BID 06/08/15 [History] Montelukast [Singulair] 10 mg PO HS 06/08/15 [History] Simvastatin [Zocor] 40 mg PO HS 06/08/15 [History] amLODIPine [Norvasc] 5 mg PO BID 06/08/15 [History] Albuterol Inhaler [Ventolin Hfa Inhaler] 1 - 2 puff INHALATION RT-Q6H PRN 02/07/19 [History] Cholecalciferol [Vitamin D3 (25 Mcg = 1000 Iu)] 5,000 unit PO DAILY 02/07/19 [History] Fluticasone/Salmeterol [Advair 250-50 Diskus] 1 inhalation PO RT-BID 02/07/19 [History] Levothyroxine Sodium [Synthroid] 100 mcg PO DAILY 02/07/19 [History] Melatonin 5 mg PO HS 02/07/19 [History] Multivitamin/Iron/Folic Acid [Centrum Women Tablet] 1 tab PO DAILY 02/07/19 [History] metFORMIN HCL 1,000 mg PO DAILY 02/07/19 [History] Azithromycin [Zithromax] 500 mg PO DAILY #3 tab 02/09/19 [Rx] amLODIPine [Norvasc] 10 mg PO DAILY tab 02/09/19 [Rx] Follow up Appointment(s)/Referral(s): Drew Silverio MD [STAFF PHYSICIAN] - 2 Weeks (office will call you with appointment time and date. ) Ida Davis MD [Primary Care Provider] - 02/12/19 1:00 pm Patient Instructions/Handouts: Chest Pain (DC), Pneumonia (DC) Discharge Disposition: HOME SELF-CARE
[2019-02-10] MEDS ORDERED: ASPIRIN 81 MG PO SCH (09:00)
[2019-02-10] MEDS ORDERED: amLODIPine 10 MG TAB PO SCH (09:00)
== END 2019-02-09 14:00 | disposition home or self-care (01) | DRG 313 ==
LOC: EC 16:09 → 3SCARD 18:15 → 4MS4W 02-08 16:09
PROVIDERS: ADMIT Internal Medicine; ATTEND Internal Medicine
DX: R07.9 Chest pain, unspecified (principal); E87.1 Hypo-osmolality and hyponatremia; J44.9 Chronic obstructive pulmonary disease, unspecified; E11.9 Type 2 diabetes mellitus without complications; I08.1 Rheumatic disorders of both mitral and tricuspid valves; I25.10 Atherosclerotic heart disease of native coronary artery without angina pectoris; J32.9 Chronic sinusitis, unspecified; E03.9 Hypothyroidism, unspecified; R09.02 Hypoxemia; E78.5 Hyperlipidemia, unspecified; I44.0 Atrioventricular block, first degree; K21.9 Gastro-esophageal reflux disease without esophagitis; I10 Essential (primary) hypertension; T50.2X5A Adverse effect of carbonic-anhydrase inhibitors, benzothiadiazides and other diuretics, initial encounter; I25.2 Old myocardial infarction; L98.9 Disorder of the skin and subcutaneous tissue, unspecified; H26.9 Unspecified cataract; M19.90 Unspecified osteoarthritis, unspecified site; Z79.82 Long term (current) use of aspirin; Z79.890 Hormone replacement therapy; Z79.84 Long term (current) use of oral hypoglycemic drugs; Z79.51 Long term (current) use of inhaled steroids; Z79.899 Other long term (current) drug therapy; Z87.891 Personal history of nicotine dependence; Z87.01 Personal history of pneumonia (recurrent); Z86.19 Personal history of other infectious and parasitic diseases; Z86.79 Personal history of other diseases of the circulatory system; Z91.041 Radiographic dye allergy status; Z88.0 Allergy status to penicillin; Z91.048 Other nonmedicinal substance allergy status; Z83.1 Family history of other infectious and parasitic diseases; Z82.49 Family history of ischemic heart disease and other diseases of the circulatory system
CPT/HCPCS: 36415; 71046; 80048; 80076; 81003; 83690; 83930; 83935; 84300; 84484; 85025; 85379; 93005; 93306; 94640; 96365; 96375; 99285

== ENCOUNTER 2020-09-05 09:20 | Inpatient (IN) | payer MEDICARE, BC ==
[2020-09-05] MEDS ORDERED: methylPREDNISolone SOD SUCCI 125 MG/2 ML VIAL IV STA (09:49)
[2020-09-05] MEDS ORDERED: ALBUTEROL HFA INHALER INHALATION STA (09:49)
[2020-09-05] MEDS ORDERED: ACETAMINOPHEN TAB 500 MG TAB PO STA (10:00)
--- NOTE | 2020-09-05 10:01 | ED ---
General Adult HPI - General Chief complaint: Shortness of Breath Stated complaint: SOB Time Seen by Provider: 09/05/20 09:21 Source: patient, EMS, RN notes reviewed, old records reviewed Mode of arrival: EMS Limitations: no limitations - History of Present Illness Initial comments: 79 -year-old female presenting with cough, dyspnea. History of COPD and asthma. She has been out of her nebulized treatments at home for the past 4 days. She denies fever. She does report nasal congestion as well as productive cough. She denies known exposure to coronavirus. Denies central chest pain. She has some minimal lower extremity edema. Which is baseline. - Related Data Home Medications Medication Instructions Recorded Confirmed ALPRAZolam [Xanax] 0.5 mg PO BID PRN 06/08/15 09/05/20 Montelukast [Singulair] 10 mg PO HS 06/08/15 09/05/20 Simvastatin [Zocor] 40 mg PO HS 06/08/15 09/05/20 amLODIPine [Norvasc] 5 mg PO BID 06/08/15 09/05/20 lisinopriL [Prinivil] 20 mg PO DAILY 06/08/15 09/05/20 Levothyroxine Sodium [Synthroid] 100 mcg PO DAILY 02/07/19 09/05/20 metFORMIN HCL 1,000 mg PO DAILY 02/07/19 09/05/20 Albuterol Inhaler [Ventolin Hfa 2 puff INHALATION RT-QID PRN 09/05/20 09/05/20 Inhaler] Metoprolol Succinate (ER) [Toprol 50 mg PO BID 09/05/20 09/05/20 Xl] Allergies Allergy/AdvReac Type Severity Reaction Status Date / Time Iodinated Contrast Media Allergy Unknown Verified 09/05/20 10:17 [Iodinated Contrast Media - IV Dye] nickel Allergy Unknown Verified 09/05/20 10:17 Penicillins Allergy Unknown Verified 09/05/20 10:17 Latex, Natural Rubber AdvReac Rash/Hives Verified 09/05/20 10:17 tuberculin,PPD,multi-puncture AdvReac Rash/Hives Verified 09/05/20 10:17 Review of Systems ROS Statement: Those systems with pertinent positive or pertinent negative responses have been documented in the HPI. ROS Other: All systems not noted in ROS Statement are negative. Past Medical History Past Medical History: Asthma, COPD, GERD/Reflux, Hyperlipidemia, Hypertension, Myocardial Infarction ([place]), Osteoarthritis ([place]), Pneumonia, Skin Disorder, Thyroid Disorder Additional Past Medical History / Comment(s): leaky heart valve, palpatations, arthiritis, 9-15 pne. 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 Carpal tunnel Past Anesthesia/Blood Transfusion Reactions: No Reported Reaction Additional Past Anesthesia/Blood Transfusion Reaction / Comment(s): occ vertigo Past Psychological History: No Psychological Hx Reported Smoking Status: Former smoker Past Alcohol Use History: None Reported Past Drug Use History: None Reported - Past Family History Father Additional Family Medical History / Comment(s): from tb at age 44 Mother Family Medical History: Hypertension Additional Family Medical History / Comment(s): had an enlarged heart - age 64(was'nt one to go to dr) General Exam Limitations: no limitations General appearance: alert, in no apparent distress Head exam: Present: atraumatic, normocephalic Eye exam: Present: normal appearance, PERRL ENT exam: Present: normal exam Neck exam: Present: normal inspection. Absent: tenderness Respiratory exam: Present: respiratory distress, wheezes, rales, decreased breath sounds Cardiovascular Exam: Present: regular rate, normal rhythm GI/Abdominal exam: Present: soft. Absent: distended, tenderness, guarding Extremities exam: Present: normal inspection, normal capillary refill, pedal edema Neurological exam: Present: alert, oriented X3, CN II-XII intact. Absent: motor sensory deficit Psychiatric exam: Present: normal affect, normal mood Skin exam: Present: warm, dry, intact. Absent: cyanosis, diaphoretic Course Vital Signs 09/05/20 09/05/20 09:48 09:51 Temperature 98.3 F Pulse Rate 90 Respiratory 26 H 24 Rate Blood Pressure 190/92 O2 Sat by Pulse 90 L Oximetry EKG Findings - EKG Comments: EKG Findings:: EKG: Sinus rhythm with first-degree AV block, rate of 88, WV interval 212, QRS duration 86, QTC 425, no ST segment elevation. Medical Decision Making - Medical Decision Making 79-year-old female presenting with hypoxia, moderate to severe respiratory distress. History of COPD asthma, patient has decreased air entry bilaterally, wheezing, rhonchi, and Rales. Chest x-ray showing lower bilateral interstitial edema as well as effusion. Given her increased cough and sputum production is suspect is a combination of CHF as well as COPD. She's started on steroids, Lasix, and covered with 1 dose of IV antibiotics for atypical pneumonia. Her coronavirus testing is negative. She is improved while in the emergency department however will require inpatient treatment. Case discussed with Dr. Watson who will admit. - Lab Data Result diagrams: 09/05/20 09:51 09/05/20 09:51 Lab Results 09/05/20 09/05/20 09/05/20 Range/Units 09:51 09:51 09:51 WBC 6.8 (3.8-10.6) k/uL RBC 5.77 H (3.80-5.40) m/uL Hgb 17.8 H (11.4-16.0) gm/dL Hct 52.2 H (34.0-46.0) % MCV 90.4 (80.0-100.0) fL MCH 30.8 (25.0-35.0) pg MCHC 34.0 (31.0-37.0) g/dL RDW 14.7 (11.5-15.5) % Plt Count 229 (150-450) k/uL MPV 6.5 Neutrophils % 76 % Lymphocytes % 16 % Monocytes % 5 % Eosinophils % 2 % Basophils % 1 % Neutrophils # 5.2 (1.3-7.7) k/uL Lymphocytes # 1.1 (1.0-4.8) k/uL Monocytes # 0.3 (0-1.0) k/uL Eosinophils # 0.1 (0-0.7) k/uL Basophils # 0.0 (0-0.2) k/uL PT 10.3 (9.0-12.0) sec INR 1.0 (<1.2) APTT 25.6 (22.0-30.0) sec Sodium 134 L (137-145) mmol/L Potassium 4.4 (3.5-5.1) mmol/L Chloride 101 (98-107) mmol/L Carbon Dioxide 24 (22-30) mmol/L Anion Gap 9 mmol/L BUN 10 (7-17) mg/dL Creatinine 0.78 (0.52-1.04) mg/dL Est GFR (CKD-EPI)AfAm 85 (>60 ml/min/1.73 sqM) Est GFR (CKD-EPI)NonAf 73 (>60 ml/min/1.73 sqM) Glucose 123 H (74-99) mg/dL Plasma Lactic Acid Sammy (0.7-2.0) mmol/L Calcium 9.6 (8.4-10.2) mg/dL Magnesium 1.8 (1.6-2.3) mg/dL Total Bilirubin 1.0 (0.2-1.3) mg/dL AST 32 (14-36) U/L ALT 25 (4-34) U/L Alkaline Phosphatase 73 (38-126) U/L Troponin I (0.000-0.034) ng/mL NT-Pro-B Natriuret Pep pg/mL Total Protein 6.9 (6.3-8.2) g/dL Albumin 4.3 (3.5-5.0) g/dL Coronavirus (PCR) (Not Detectd) 09/05/20 09/05/20 09/05/20 Range/Units 09:51 09:51 09:51 WBC (3.8-10.6) k/uL RBC (3.80-5.40) m/uL Hgb (11.4-16.0) gm/dL Hct (34.0-46.0) % MCV (80.0-100.0) fL MCH (25.0-35.0) pg MCHC (31.0-37.0) g/dL RDW (11.5-15.5) % Plt Count (150-450) k/uL MPV Neutrophils % % Lymphocytes % % Monocytes % % Eosinophils % % Basophils % % Neutrophils # (1.3-7.7) k/uL Lymphocytes # (1.0-4.8) k/uL Monocytes # (0-1.0) k/uL Eosinophils # (0-0.7) k/uL Basophils # (0-0.2) k/uL PT (9.0-12.0) sec INR (<1.2) APTT (22.0-30.0) sec Sodium (137-145) mmol/L Potassium (3.5-5.1) mmol/L Chloride (98-107) mmol/L Carbon Dioxide (22-30) mmol/L Anion Gap mmol/L BUN (7-17) mg/dL Creatinine (0.52-1.04) mg/dL Est GFR (CKD-EPI)AfAm (>60 ml/min/1.73 sqM) Est GFR (CKD-EPI)NonAf (>60 ml/min/1.73 sqM) Glucose (74-99) mg/dL Plasma Lactic Acid Sammy 1.0 (0.7-2.0) mmol/L Calcium (8.4-10.2) mg/dL Magnesium (1.6-2.3) mg/dL Total Bilirubin (0.2-1.3) mg/dL AST (14-36) U/L ALT (4-34) U/L Alkaline Phosphatase (38-126) U/L Troponin I <0.012 (0.000-0.034) ng/mL NT-Pro-B Natriuret Pep 826 pg/mL Total Protein (6.3-8.2) g/dL Albumin (3.5-5.0) g/dL Coronavirus (PCR) (Not Detectd) 09/05/20 Range/Units 09:51 WBC (3.8-10.6) k/uL RBC (3.80-5.40) m/uL Hgb (11.4-16.0) gm/dL Hct (34.0-46.0) % MCV (80.0-100.0) fL MCH (25.0-35.0) pg MCHC (31.0-37.0) g/dL RDW (11.5-15.5) % Plt Count (150-450) k/uL MPV Neutrophils % % Lymphocytes % % Monocytes % % Eosinophils % % Basophils % % Neutrophils # (1.3-7.7) k/uL Lymphocytes # (1.0-4.8) k/uL Monocytes # (0-1.0) k/uL Eosinophils # (0-0.7) k/uL Basophils # (0-0.2) k/uL PT (9.0-12.0) sec INR (<1.2) APTT (22.0-30.0) sec Sodium (137-145) mmol/L Potassium (3.5-5.1) mmol/L Chloride (98-107) mmol/L Carbon Dioxide (22-30) mmol/L Anion Gap mmol/L BUN (7-17) mg/dL Creatinine (0.52-1.04) mg/dL Est GFR (CKD-EPI)AfAm (>60 ml/min/1.73 sqM) Est GFR (CKD-EPI)NonAf (>60 ml/min/1.73 sqM) Glucose (74-99) mg/dL Plasma Lactic Acid Sammy (0.7-2.0) mmol/L Calcium (8.4-10.2) mg/dL Magnesium (1.6-2.3) mg/dL Total Bilirubin (0.2-1.3) mg/dL AST (14-36) U/L ALT (4-34) U/L Alkaline Phosphatase (38-126) U/L Troponin I (0.000-0.034) ng/mL NT-Pro-B Natriuret Pep pg/mL Total Protein (6.3-8.2) g/dL Albumin (3.5-5.0) g/dL Coronavirus (PCR) Not Detected (Not Detectd) Critical Care Time Critical Care Time: Yes Total Critical Care Time: 35 Disposition Clinical Impression: Acute exacerbation of chronic obstructive pulmonary disease, Congestive heart failure Disposition: ADMITTED IP TO THIS [facility] Condition: Stable Is patient prescribed a controlled substance at d/c from ED?: No Referrals: Ida Davis MD [Primary Care Provider] - 1-2 days Decision to Admit Reason: Admit from EC Decision Date: 09/05/20 Decision Time: 11:13
[2020-09-05 10:05] LABS: Basophils % (A) 1 %; Eosinophils # (A) 0.1 k/uL (0-0.7); Eosinophils % (A) 2 %; HCT 52.2 % (34.0-46.0); HGB 17.8 gm/dL (11.4-16.0); Lymphocytes # (A) 1.1 k/uL (1.0-4.8); Lymphocytes % (A) 16 %; MCH 30.8 pg (25.0-35.0); MCV 90.4 fL (80.0-100.0); Mean Platelet Volume 6.5; Monocytes # (A) 0.3 k/uL (0-1.0); Monocytes % (A) 5 %; Neutrophils # (A) 5.2 k/uL (1.3-7.7); Neutrophils % (A) 76 %; Platelet Count 229 k/uL (150-450); RBC 5.77 m/uL (3.80-5.40); RDW 14.7 % (11.5-15.5); WBC 6.8 k/uL (3.8-10.6)
[2020-09-05 10:19] LABS: Partial Thromboplastin Time 25.6 sec (22.0-30.0); Prothrombin Time 10.3 sec (9.0-12.0)
[2020-09-05 10:24] LABS: Albumin 4.3 g/dL (3.5-5.0); Calcium 9.6 mg/dL (8.4-10.2); Magnesium 1.8 mg/dL (1.6-2.3); Potassium 4.4 mmol/L (3.5-5.1); Total Protein 6.9 g/dL (6.3-8.2)
--- NOTE | 2020-09-05 10:34 | XR ---
EXAMINATION TYPE: XR chest 1V portable DATE OF EXAM: 09/05/2020 COMPARISON: Prior chest x-ray 02/07/[address] chest 01/24/2016 HISTORY: Cough TECHNIQUE: Single frontal view of the chest is obtained. FINDINGS: Bibasilar increased attenuation is present, there is blunting of the costophrenic angles w ith obscured hemidiaphragms. No evident pneumothorax. Heart appears enlarged possibly due to epidcard ial fat pads. There are overlying leads. Aorta is dense. Apical lucency is noted. IMPRESSION: Correlate for possible congestive failure in a patient with pre-existing COPD, there may be basilar edema versus pneumonia, associated effusions. Follow up suggested.
[2020-09-05] MEDS ORDERED: FUROSEMIDE 10 MG/ML 4 ML VIAL IV STA (10:41)
[2020-09-05] MEDS ORDERED: cefTRIAXone IN SWFI 1,000 MG/10 ML SYRINGE IVP STA (10:57)
[2020-09-05] MEDS ORDERED: AZITHROMYCIN 500 MG in SODIUM CHLORIDE 0.9% 250 ML IVPB STA (10:57)
[2020-09-05] MEDS ORDERED: IPRATROPIUM-ALBUTEROL 3 ML NEB INHALATION PRN (11:11)
[2020-09-05] MEDS ORDERED: diphenhydrAMINE 50 MG/ML 1 ML VIAL IVP STA (13:11)
[2020-09-05] MEDS ORDERED: ALBUTEROL HFA INHALER INHALATION PRN (13:12)
[2020-09-05] MEDS ORDERED: FAMOTIDINE 20 MG/2 ML VIAL IV STA (13:13)
--- NOTE | 2020-09-05 13:22 | P.HPIM ---
History of Present Illness His is a very pleasant 79-year-old female came in with complains of a cough unable to bring up anything and shortness of breath has been going on for about 4-5 days. Patient is comparing of severe postnasal drip. Patient was tested for Covid 19 which was negative. Patient chest x-ray showing infiltrate consistent with the CHF or pneumonia in bilateral lower lung bases. Patient has minimal pedal edema denied any orthopnea and denied any paroxysmal nocturnal dyspnea. She denied any chest pain. Patient doesn't usually use oxygen patient is presently requiring 5 L of recent patient was actually put on BiPAP now. Patient denied any fever chills and no leukocytosis. Mildly hyponatremic. Her BNP is only 800. Review of Systems REVIEW OF SYSTEMS: CONSTITUTIONAL: No fever, no malaise, no fatigue. HEENT: No recent visual problems or hearing problems. Denied any sore throat. CARDIOVASCULAR: No chest pain, orthopnea, PND, no palpitations, no syncope. PULMONARY: no hemoptysis. GASTROINTESTINAL: No diarrhea, no nausea, no vomiting, no abdominal pain. NEUROLOGICAL: No headaches, no weakness, no numbness. HEMATOLOGICAL: Denies any bleeding or petechiae. GENITOURINARY: Denies any burning micturition, frequency, or urgency. MUSCULOSKELETAL/RHEUMATOLOGICAL: Denies any joint pain, swelling, or any muscle pain. ENDOCRINE: Denies any polyuria or polydipsia. The rest of the 14-point review of systems is negative. Past Medical History Past Medical History: Asthma, COPD, GERD/Reflux, Hyperlipidemia, Hypertension, Myocardial Infarction ([place]), Osteoarthritis (OA), Pneumonia, Skin Disorder, Thyroid Disorder Additional Past Medical History / Comment(s): leaky heart valve, palpatations, arthiritis, 06-08-15 pne. 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 Carpal tunnel Past Anesthesia/Blood Transfusion Reactions: No Reported Reaction Additional Past Anesthesia/Blood Transfusion Reaction / Comment(s): occ vertigo Past Psychological History: No Psychological Hx Reported Smoking Status: Former smoker Past Alcohol Use History: None Reported Past Drug Use History: None Reported - Past Family History Father Additional Family Medical History / Comment(s): from tb at age 44 Mother Family Medical History: Hypertension Additional Family Medical History / Comment(s): had an enlarged heart - age 64(was'nt one to go to dr) Medications and Allergies Home Medications Medication Instructions Recorded Confirmed Type ALPRAZolam [Xanax] 0.5 mg PO BID PRN 06/08/15 09/05/20 History Montelukast [Singulair] 10 mg PO HS 06/08/15 09/05/20 History Simvastatin [Zocor] 40 mg PO HS 06/08/15 09/05/20 History amLODIPine [Norvasc] 5 mg PO BID 06/08/15 09/05/20 History lisinopriL [Prinivil] 20 mg PO DAILY 06/08/15 09/05/20 History Levothyroxine Sodium [Synthroid] 100 mcg PO DAILY 02/07/19 09/05/20 History metFORMIN HCL 1,000 mg PO DAILY 02/07/19 09/05/20 History Albuterol Inhaler [Ventolin Hfa 2 puff INHALATION RT-QID PRN 09/05/20 09/05/20 History Inhaler] Metoprolol Succinate (ER) [Toprol 50 mg PO BID 09/05/20 09/05/20 History Xl] Allergies Allergy/AdvReac Type Severity Reaction Status Date / Time Iodinated Contrast Media Allergy Unknown Verified 09/05/20 10:17 [Iodinated Contrast Media - IV Dye] nickel Allergy Unknown Verified 09/05/20 10:17 Penicillins Allergy Unknown Verified 09/05/20 10:17 Latex, Natural Rubber AdvReac Rash/Hives Verified 09/05/20 10:17 tuberculin,PPD,multi-puncture AdvReac Rash/Hives Verified 09/05/20 10:17 Physical Exam Vitals: Vital Signs Temp Pulse Resp BP Pulse Ox 09/05/20 12:14 102 H 16 182/96 93 L 09/05/20 11:52 87 L 09/05/20 11:40 20 86 L 09/05/20 11:19 86 L 09/05/20 11:18 97.9 F 98 26 H 83 L 09/05/20 09:51 24 09/05/20 09:48 98.3 F 90 26 H 190/92 90 L Intake and Output 09/04/20 09/05/20 09/05/20 22:59 06:59 14:59 Other: Weight 81.647 kg PHYSICAL EXAMINATION: GENERAL: The patient is alert and oriented x3, not in any acute distress. Well developed, well nourished. HEENT: Pupils are round and equally reacting to light. EOMI. No scleral icterus. No conjunctival pallor. Normocephalic, atraumatic. No pharyngeal erythema. No thyromegaly. CARDIOVASCULAR: S1 and S2 present. No murmurs, rubs, or gallops. Doesn't have any JVD PULMONARY: Mildly decreased air entry into bilateral lung fieldsand wheezing was appreciated no crackles were appreciated ABDOMEN: Soft, nontender, nondistended, normoactive bowel sounds. No palpable organomegaly. MUSCULOSKELETAL: No joint swelling or deformity. EXTREMITIES: No cyanosis, clubbing, bilateral pitting ankle edema NEUROLOGICAL: Gross neurological examination did not reveal any focal deficits. SKIN: No rashes. Results CBC & Chem 7: 09/05/20 09:51 09/05/20 09:51 Labs: Abnormal Lab Results - Last 24 Hours (Table) 09/05/20 09/05/20 Range/Units 09:51 09:51 RBC 5.77 H (3.80-5.40) m/uL Hgb 17.8 H (11.4-16.0) gm/dL Hct 52.2 H (34.0-46.0) % Sodium 134 L (137-145) mmol/L Glucose 123 H (74-99) mg/dL Assessment and Plan Plan: Acute hypoxic respiratory failure: Etiology is not really clear at this time and patient the chest x-ray is also consistent with pulmonary edema there is no clinical evidence of CHF at this time patient does have ankle edema which can be secondary to Norvasc. Patient doesn't have any significant wheezing there is fairly good air entry into bilateral lung rubio because of this reason I'll order a CT angios of the chest rule out any pulmonary embolism which will also help to characterize the bilateral lower lobe infiltrates which may be related to pulmonary fibrosis. Covid 19 was ruled out. Patient has ALLERGIC reaction to iodinated radiocontrast which is a rash because of which we need to do a shot prep for CT angios. Pulmonary will be consulted. Since the etiology of acute hypoxemia is not clear patient will be started on Rocephin and azithromycin for now we'll cut down the IV Lasix to 40 mg daily from [place] a day patient will be started on very small dose of IV steroid -COPD with possible acute exacerbation -Type 2 diabetes mellitus blood sugars are expected to go because of systemic steroids was started on sliding scale insulin metformin will be held -Gastroesophageal reflux disease -Hyperlipidemia -Hypertension: Patient will be resumed on home regimen -Coronary artery disease -Hypothyroidism -DVT prophylaxis with Lovenox
[2020-09-05] MEDS: METOPROLOL SUCCINATE (ER) 50 MG TAB.ER.24H PO SCH ×2 (13:24→19:59)
[2020-09-05] MEDS ORDERED: amLODIPine 5 MG TAB PO STA (13:29)
--- NOTE | 2020-09-05 13:51 | CT ---
EXAMINATION TYPE: CT angio chest DATE OF EXAM: 09/05/2020 COMPARISON: 06/08/2015 HISTORY: PE CT DLP: 280 mGycm CONTRAST: CT chest with contrast and 3D reconstruction with MIP imaging is performed with IV Contrast, patient injected with 100 mL of Isovue 370. Contrast-enhanced CT of the chest was performed through the course of the pulmonary arteries with chandler g and mediastinal window settings submitted. 3D reconstruction with MIP imaging was also performed. PULMONARY ARTERIES: The pulmonary arteries and their major tributaries are patent. I do not see florecita dence for sizable filling defect to suggest pulmonary embolic process. LUNGS: Severe emphysematous changes noted bilaterally. There are bilateral pleural effusions noted wi th maximal AP dimension on the left of 2.2 cm and on the right of approximately 2.4 cm. There is basi lar compressive atelectasis. Consider underlying congestive failure. MEDIASTINUM: The heart is enlarged. Ectatic and atheromatous changes of the thoracic aorta. No eviden ce for mediastinal mass. No mediastinal lymph nodes greater than 1cm. HILAR STRUCTURES: No evidence for mass. No hilar lymph nodes greater than 1 cm. UPPER ABDOMEN: No significant abnormality is seen. IMPRESSION: 1. No evidence for Pulmonary embolism at this time. 2. Correlate for congestive failure.
[2020-09-05] MEDS: IPRATROPIUM-ALBUTEROL 3 ML NEB INHALATION SCH ×2 (17:37→19:47)
[2020-09-05] MEDS: INSULIN ASPART (NovoLOG) 100 UNIT/ML VIAL SQ SCH ×2 (18:55→23:14)
[2020-09-05] MEDS: ATORVASTATIN 20 MG TAB PO SCH (19:59)
[2020-09-05] MEDS: amLODIPine 5 MG TAB PO SCH (19:59)
[2020-09-05] MEDS ORDERED: FUROSEMIDE 10 MG/ML 4 ML VIAL IV SCH (21:00)
[2020-09-05 21:52] LABS: Glucose,Whole Blood 133 mg/dL (75-99)
[2020-09-06] MEDS: ALPRAZolam 0.5 MG TAB PO PRN ×2 (00:01→22:43)
[2020-09-06] MEDS: LEVOTHYROXINE 100 MCG TAB PO SCH (05:34)
[2020-09-06] MEDS: INSULIN ASPART (NovoLOG) 100 UNIT/ML VIAL SQ SCH ×4 (06:09→20:57)
[2020-09-06 06:14] LABS: Glucose,Whole Blood 107 mg/dL (75-99)
[2020-09-06 08:11] LABS: HCT 51.2 % (34.0-46.0); HGB 17.3 gm/dL (11.4-16.0); MCH 30.5 pg (25.0-35.0); MCHC 33.8 g/dL (31.0-37.0); MCV 90.3 fL (80.0-100.0); Mean Platelet Volume 6.9; Platelet Count 274 k/uL (150-450); RBC 5.68 m/uL (3.80-5.40); RDW 14.9 % (11.5-15.5); WBC 7.1 k/uL (3.8-10.6)
[2020-09-06] MEDS: IPRATROPIUM-ALBUTEROL 3 ML NEB INHALATION SCH ×4 (08:11→21:48)
[2020-09-06 08:24] LABS: Calcium 9.2 mg/dL (8.4-10.2); Potassium 4.5 mmol/L (3.5-5.1)
[2020-09-06] MEDS: amLODIPine 5 MG TAB PO SCH ×2 (08:40→20:56)
[2020-09-06] MEDS: METOPROLOL SUCCINATE (ER) 50 MG TAB.ER.24H PO SCH ×2 (08:40→20:56)
[2020-09-06] MEDS: methylPREDNISolone SOD SUCCI 40 MG/ML 1 ML VIAL IV SCH ×2 (08:40→20:56)
[2020-09-06] MEDS: FUROSEMIDE 10 MG/ML 4 ML VIAL IV SCH (08:40)
[2020-09-06] MEDS: AZITHROMYCIN 500 MG TAB PO SCH (08:40)
[2020-09-06] MEDS: lisinopriL 20 MG TAB PO SCH (08:40)
--- NOTE | 2020-09-06 10:39 | ECHOF ---
Referral Reason:CHF MEASUREMENTS -------- HEIGHT: 160.0 cm WEIGHT: 84.8 kg BP: IVSd: 1.3 cm (0.6 - 1.1) LVIDd: 3.9 cm (3.9 - 5.3) LVPWd: 1.4 cm (0.6 - 1.1) IVSs: 1.7 cm LVIDs: 2.4 cm LVPWs: 1.5 cm LAESV Index (A-L): 18.23 ml/m Ao Diam: 2.5 cm (2.0 - 3.7) AV Cusp: 1.7 cm (1.5 - 2.6) LA Diam: 3.4 cm (2.7 - 3.8) MV E Pérez: 0.95 m/s MV DecT: 189 ms MV A Pérez: 1.21 m/s MV E/A Ratio: 0.78 AV maxP.44 mmHg AV meanP.90 mmHg AR PHT: 273 ms RAP: 5.00 mmHg RVSP: 18.47 mmHg FINDINGS -------- This was a technically good study. The left ventricular size is normal. There is mild concentric left ventricular hypertrophy. Overa ll left ventricular systolic function is normal with, an EF between 55 - 60 %. Normal LAP. Grade 1 Diastolic Dysfunction. The right ventricle is normal in size. The left atrial size is normal. Normal LA size by volume 22+/-6 ml/m2. The right atrial size is normal. Interatrial and interventricular septum intact. Aortic valve is trileaflet and is mildly thickened. There is mild aortic valve sclerosis. Trace a mount of aortic regurgitation. Peak/mean gradient across the Aortic Valve is 10.44mmHg / 5.90mmHg. The mitral valve is normal. Mild mitral regurgitation is present. The tricuspid valve appears structurally normal. Mild tricuspid regurgitation present. Right vent ricular systolic pressure is normal at < 35 mmHg. There is no pulmonic regurgitation present. The aortic root size is normal. Normal inferior vena cava with normal inspiratory collapse consistent with estimated right atrial pre ssure of 5 mmHg. Echo free space represents a pericardial fat pad. There is no pericardial effusion. CONCLUSIONS -------- 1. The left ventricular size is normal. 2. There is mild concentric left ventricular hypertrophy. 3. Overall left ventricular systolic function is normal with, an EF between 55 - 60 %. 4. Normal LAP. Grade 1 Diastolic Dysfunction. 5. Aortic valve is trileaflet and is mildly thickened. 6. There is mild aortic valve sclerosis. 7. Trace amount of aortic regurgitation. 8. Peak/mean gradient across the Aortic Valve is 10.44mmHg / 5.90mmHg. 9. Mild mitral regurgitation is present. 10. Mild tricuspid regurgitation present. 11. Echo free space represents a pericardial fat pad. 12. There is no pericardial effusion. MEDICAL TECHNOLOGIST CLINICAL: Lauren Childress RDCS
[2020-09-06 12:37] LABS: Glucose,Whole Blood 129 mg/dL (75-99)
[2020-09-06] MEDS: cloNIDine HCL 0.2 MG TAB PO SCH ×3 (12:38→22:41)
[2020-09-06] MEDS: ACETAMINOPHEN TAB 325 MG TAB PO PRN (12:39)
--- NOTE | 2020-09-06 12:57 | P.CNPUL ---
History of Present Illness Reason for consult: dyspnea, cough, pneumonia Chief complaint: Cough shortness of breath for 5 day duration History of present illness: This is a 79-year-old female had a remote history of smoking quit about 7 years ago used to smoke one pack per day, she presented into the emergency department with increasing shortness of breath and hypoxia, symptoms have been going on for almost 2 weeks, oxygen saturation were 87% on 6 L patient did require BiPAP 10/5 with 50% oxygen overnight with that symptoms significantly improved, currently patient is on [address] of the chest no pulmonary embolism is seen, severe emphysema, Review of Systems All systems: negative Past Medical History Past Medical History: Asthma, COPD, GERD/Reflux, Hyperlipidemia, Hypertension, Myocardial Infarction (OH), Osteoarthritis (OA), Pneumonia, Skin Disorder, Thyroid Disorder Additional Past Medical History / Comment(s): leaky heart valve, palpatations, arthiritis, 06-08-15 pne. 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 Carpal tunnel Past Anesthesia/Blood Transfusion Reactions: No Reported Reaction Additional Past Anesthesia/Blood Transfusion Reaction / Comment(s): occ vertigo Past Psychological History: No Psychological Hx Reported Smoking Status: Former smoker Past Alcohol Use History: None Reported Past Drug Use History: None Reported - Past Family History Father Additional Family Medical History / Comment(s): from tb at age 44 Mother Family Medical History: Hypertension Additional Family Medical History / Comment(s): had an enlarged heart - age 64(was'nt one to go to dr) Medications and Allergies Home Medications Medication Instructions Recorded Confirmed Type ALPRAZolam [Xanax] 0.5 mg PO BID PRN 06/08/15 09/05/20 History Montelukast [Singulair] 10 mg PO HS 06/08/15 09/05/20 History Simvastatin [Zocor] 40 mg PO HS 06/08/15 09/05/20 History amLODIPine [Norvasc] 5 mg PO BID 06/08/15 09/05/20 History lisinopriL [Prinivil] 20 mg PO DAILY 06/08/15 09/05/20 History Levothyroxine Sodium [Synthroid] 100 mcg PO DAILY 02/07/19 09/05/20 History metFORMIN HCL 1,000 mg PO DAILY 02/07/19 09/05/20 History Albuterol Inhaler [Ventolin Hfa 2 puff INHALATION RT-QID PRN 09/05/20 09/05/20 History Inhaler] Metoprolol Succinate (ER) [Toprol 50 mg PO BID 09/05/20 09/05/20 History Xl] Allergies Allergy/AdvReac Type Severity Reaction Status Date / Time Iodinated Contrast Media Allergy Unknown Verified 09/05/20 10:17 [Iodinated Contrast Media - IV Dye] nickel Allergy Unknown Verified 09/05/20 10:17 Penicillins Allergy Unknown Verified 09/05/20 10:17 Latex, Natural Rubber AdvReac Rash/Hives Verified 09/05/20 10:17 tuberculin,PPD,multi-puncture AdvReac Rash/Hives Verified 09/05/20 10:17 Physical Exam Vitals: Vital Signs Temp Pulse Pulse Resp BP BP Pulse Ox 09/06/20 11:54 90 09/06/20 11:42 90 09/06/20 11:21 98.7 F 83 18 182/81 94 L 09/06/20 08:22 92 09/06/20 08:11 92 93 L 09/06/20 08:00 98 F 91 18 189/87 92 L 09/06/20 04:00 98.5 F 68 21 150/80 95 09/06/20 02:00 88 20 09/06/20 00:00 88 20 154/86 96 09/05/20 20:00 98.1 F 96 20 166/95 93 L 09/05/20 19:59 89 09/05/20 19:49 89 09/05/20 17:51 97.9 F 100 23 186/90 96 09/05/20 17:13 93 16 169/85 94 L 09/05/20 15:53 97.3 F L 93 16 171/95 94 L 09/05/20 14:10 85 16 149/88 94 L 09/05/20 13:44 92 L 09/05/20 13:43 85 L Intake and Output 09/05/20 09/06/20 09/06/20 22:59 06:59 14:59 Intake Total 720 Output Total 600 Balance 120 Intake: Oral 720 Output: Urine 600 Other: # Voids 2 2 Weight 85 kg - Constitutional General appearance: average body habitus, cooperative, disheveled - EENT Eyes: EOMI, PERRLA Ears: bilateral: normal - Neck Neck: normal ROM Carotids: bilateral: upstroke normal Thyroid: bilateral: normal size - Respiratory Respiratory: bilateral: diminished - Cardiovascular Rhythm: regular Heart sounds: normal: S1, S2 - Gastrointestinal General gastrointestinal: normal bowel sounds - Neurologic Neurologic: CNII-XII intact - Musculoskeletal Musculoskeletal: gait normal, generalized weakness, strength equal bilaterally - Psychiatric Psychiatric: A&O x's 3 Results - Laboratory Findings CBC and BMP: 09/06/20 06:46 09/06/20 06:46 PT/INR, D-dimer PT 10.3 sec (9.0-12.0) 09/05/20 09:51 INR 1.0 (<1.2) 09/05/20 09:51 Abnormal lab findings: Abnormal Labs 09/05/20 09/05/20 09/05/20 09:51 09:51 21:50 RBC 5.77 H Hgb 17.8 H Hct 52.2 H Sodium 134 L Glucose 123 H POC Glucose (mg/dL) 133 H 09/06/20 09/06/20 09/06/20 06:03 06:46 06:46 RBC 5.68 H Hgb 17.3 H Hct 51.2 H Sodium 135 L Glucose 104 H POC Glucose (mg/dL) 107 H - Diagnostic Findings Chest x-ray: report reviewed, image reviewed CT scan - chest: report reviewed, image reviewed Assessment and Plan Assessment: Acute COPD exacerbation Acute on chronic hypoxic respiratory failure Tracheobronchitis Severe advance emphysema Type 2 diabetes mellitus Hypertension hypertensive cardiovascular disease Coronary artery disease Hypothyroidism Plan: Continue bronchodilator Continue supplemental oxygen IV steroids Obstructive antibiotics Breathing exercises incentive spirometry She'll likely will need COPD evaluation we'll do it on outpatient basis Patient likely will need home oxygen Time with Patient: Greater than 30
--- NOTE | 2020-09-06 12:58 | P.PN ---
Subjective 79-year-old female came in with complains of a cough unable to bring up anything and shortness of breath has been going on for about 4-5 days. Patient is comparing of severe postnasal drip. Patient was tested for Covid 19 which was negative. Patient chest x-ray showing infiltrate consistent with the CHF or pneumonia in bilateral lower lung bases. Patient has minimal pedal edema denied any orthopnea and denied any paroxysmal nocturnal dyspnea. She denied any chest pain. Patient doesn't usually use oxygen patient is presently requiring 5 L of recent patient was actually put on BiPAP now. Patient denied any fever chills and no leukocytosis. Mildly hyponatremic. Her BNP is only 800. 09/06/2020 Patient had a computed tomography scan of the chest which did not show any pneumonia because of which are disc and neurosurgeon patient can you done azithromycin, patient is on 6 L of oxygen now. Patient has significant and severe emphysema bilaterally on the CAT scan. Patient clinically doesn't appear to have any CHF but there is a concern of CHF as per the radiologist the computed tomography scan bleed because of which are Iopidine echo cardiac exam showed normal ejection fraction patient the will remain on Lasix will also consult cardiology. Patient also feels much better compared to yesterday still has some minimal ankle edema which improved compared to yesterday Constitutional: Denied any fatigue denied any fever. Cardio vascular: denied any chest pain, palpitations Gastrointestinal denied any nausea vomiting Pulmonary: Improved shortness of breath Neurologic denied any new focal deficits All inpatient medications were reviewed and appropriate changes in these medications as dictated in the interval history and assessment and plan. Objective - Vital Signs Vital signs: Vital Signs Temp 98.7 F 09/06/20 11:21 Pulse 90 09/06/20 11:54 Resp 18 09/06/20 11:21 BP 182/81 09/06/20 11:21 Pulse Ox 94 L 09/06/20 11:21 Intake & Output 09/05/20 09/06/20 09/06/20 18:59 06:59 18:59 Intake Total 720 Output Total 600 Balance 120 Weight 81.647 kg 85 kg Intake: Oral 720 Output: Urine 600 Other: # Voids 2 - Exam PHYSICAL EXAMINATION: GENERAL: The patient is alert and oriented x3, not in any acute distress. Well developed, well nourished. HEENT: Pupils are round and equally reacting to light. EOMI. No scleral icterus. No conjunctival pallor. Normocephalic, atraumatic. No pharyngeal erythema. No thyromegaly. CARDIOVASCULAR: S1 and S2 present. No murmurs, rubs, or gallops. Doesn't have any JVD PULMONARY: Mildly decreased air entry into bilateral lung fieldsand wheezing was appreciated no crackles were appreciated ABDOMEN: Soft, nontender, nondistended, normoactive bowel sounds. No palpable organomegaly. MUSCULOSKELETAL: No joint swelling or deformity. EXTREMITIES: No cyanosis, clubbing, improved ankle edema NEUROLOGICAL: Gross neurological examination did not reveal any focal deficits. SKIN: No rashes. - Labs CBC & Chem 7: 09/06/20 06:46 09/06/20 06:46 Labs: Abnormal Lab Results - Last 24 Hours (Table) 09/05/20 09/06/20 09/06/20 Range/Units 21:50 06:03 06:46 RBC 5.68 H (3.80-5.40) m/uL Hgb 17.3 H (11.4-16.0) gm/dL Hct 51.2 H (34.0-46.0) % Sodium (137-145) mmol/L Glucose (74-99) mg/dL POC Glucose (mg/dL) 133 H 107 H (75-99) mg/dL 09/06/20 09/06/20 Range/Units 06:46 12:35 RBC (3.80-5.40) m/uL Hgb (11.4-16.0) gm/dL Hct (34.0-46.0) % Sodium 135 L (137-145) mmol/L Glucose 104 H (74-99) mg/dL POC Glucose (mg/dL) 129 H (75-99) mg/dL Microbiology - Last 24 Hours (Table) 09/05/20 09:51 Blood Culture - Preliminary Blood No Growth after 24 hours Assessment and Plan Plan: Acute hypoxic respiratory failure: Possibility of emphysema patient will most probably will require oxygen. Patient will be continued on systemic steroids if we're able to wean oxygen to around 3 L patient will be discharged at that time patient is feeling much better at this time patient is not wheezing on exam today. As mentioned above because of the concerns of CHF as per the CAT scan obtained an echocardiogram which showed normal ejection fraction possibility of CHF is low. Ankle edema due to Norvasc -COPD with possible acute exacerbation -Type 2 diabetes mellitus blood sugars are expected to go because of systemic steroids, patient was started on sliding scale insulin metformin will be held -Gastroesophageal reflux disease -Hyperlipidemia -Hypertension: -Coronary artery disease -Hypothyroidism -DVT prophylaxis with Lovenox
--- NOTE | 2020-09-06 13:01 | CONS ---
CONSULTATION Ramonita is a 79-year-old lady with history of COPD, hypertension, diabetes, dyslipidemia, who presented to hospital with symptoms of worsening shortness of breath for the last few days. The patient has been on nebulizers but had run out of them and has not taken any over 2 days. The patient has chronic leg edema, probably related to the amlodipine that she is on. Had an echocardiogram on this admission that showed normal LV function. There is no prior history of congestive heart failure or coronary artery disease. At the time of my evaluation, she is on 5 L of nasal cannula, which is an improvement from where she was when she first presented. Does not have chest pain, PND or orthopnea. She has had one set of troponin that is negative. BNP is 826. Coronavirus is negative. Potassium is 4.5. Creatinine is 0.86. The patient's shortness of breath is probably related to COPD exacerbation and it is not suggestive of congestive heart failure. She is already getting better with nebulizers and antibiotics. Her chest x-ray showed bilateral infiltrates. EKG shows sinus rhythm with nonspecific ST-T wave changes. PAST MEDICAL HISTORY: Significant for COPD, hypertension, dyslipidemia, diabetes and hypothyroidism. CURRENT MEDICATIONS: Current medications include Toprol-XL 50 b.i.d., Zestril 20 daily, Synthroid, insulin, Singulair, Zocor, Norvasc, Toprol. ALLERGIES: Allergic to IV DYE, PENICILLIN, LATEX and . FAMILY HISTORY: Negative for premature coronary artery disease. SOCIAL HISTORY: Negative for current smoking, EtOH abuse, or drug abuse. REVIEW OF SYSTEMS: HEENT is unremarkable. CARDIAC: As described above. RESPIRATORY: As described above. GI: Negative. GENITOURINARY: Negative. ALLERGY/IMMUNOLOGY: Negative. SKIN: Negative. MUSCULOSKELETAL: Negative. ENDOCRINE: Negative. DERM: Negative. CONSTITUTIONAL: Negative. ONCOLOGICAL: Negative. LEGAL RECORDS MANAGER: Negative. PHYSICAL EXAMINATION: On exam, patient is comfortable at rest. Heart rate is 90 beats per minute. Blood pressure is 182/81, respiratory rate is 18. There is no jugular venous distention. Carotid upstroke is normal. There is no bruit. Chest exam reveals diminished air entry at the bases. I do not hear any crackles or rhonchi. Heart exam reveals first and second heart sounds. An S4 is heard and a systolic murmur at the apex. Abdomen is soft. Exam of the extremities reveals bilateral 2+ pitting edema. LABS: Labs show a hemoglobin of 17.3, platelet count is 274. Potassium is 4.5. Creatinine is 0.8. ASSESSMENT: 1. Severe uncontrolled hypertension. 2. Shortness of breath probably due to chronic obstructive pulmonary disease exacerbation. 3. Leg edema secondary to Norvasc. PLAN: We will continue the patient on Zestril 20 mg daily, Toprol-XL 50 mg b.i.d. Norvasc 5 b.i.d. I agree with IV Lasix to see if her clinical situation changes and I will add Catapres 0.2 mg t.i.d. for more optimal blood pressure control. Patient had an echo on this admission I reviewed the results. It shows normal LV function with mild aortic stenosis. ANGELIC / DAVID: [id number] /
[2020-09-06 17:01] LABS: Glucose,Whole Blood 167 mg/dL (75-99)
[2020-09-06 20:19] LABS: Glucose,Whole Blood 177 mg/dL (75-99)
[2020-09-06] MEDS: ATORVASTATIN 20 MG TAB PO SCH (20:56)
[2020-09-06] MEDS ORDERED: amLODIPine 5 MG TAB PO STA (21:18)
[2020-09-06] MEDS: hydrALAZINE HCL 25 MG TAB PO SCH (22:42)
[2020-09-07] MEDS: LEVOTHYROXINE 100 MCG TAB PO SCH (06:25)
[2020-09-07] MEDS: INSULIN ASPART (NovoLOG) 100 UNIT/ML VIAL SQ SCH ×4 (06:25→21:00)
[2020-09-07 06:31] LABS: Calcium 9.2 mg/dL (8.4-10.2); Potassium 5.4 mmol/L (3.5-5.1)
[2020-09-07] MEDS: IPRATROPIUM-ALBUTEROL 3 ML NEB INHALATION SCH ×4 (07:35→19:56)
[2020-09-07] MEDS: FUROSEMIDE 10 MG/ML 4 ML VIAL IV SCH (07:47)
[2020-09-07] MEDS: methylPREDNISolone SOD SUCCI 40 MG/ML 1 ML VIAL IV SCH (07:47)
[2020-09-07] MEDS: METOPROLOL SUCCINATE (ER) 50 MG TAB.ER.24H PO SCH ×2 (07:47→21:00)
[2020-09-07] MEDS: lisinopriL 20 MG TAB PO SCH (07:48)
[2020-09-07] MEDS: amLODIPine 5 MG TAB PO SCH ×2 (07:48→21:00)
[2020-09-07] MEDS: hydrALAZINE HCL 25 MG TAB PO SCH (07:48)
[2020-09-07] MEDS: AZITHROMYCIN 500 MG TAB PO SCH (07:48)
[2020-09-07] MEDS ORDERED: SODIUM POLYSTYRENE SULFONATE 15 GM/60 ML BOTTLE PO STA (08:39)
[2020-09-07] MEDS: predniSONE 20 MG TAB PO SCH (09:11)
[2020-09-07] MEDS: hydrALAZINE HCL 50 MG TAB PO SCH ×3 (09:11→21:00)
--- NOTE | 2020-09-07 09:39 | P.PN ---
Subjective 79-year-old female came in with complains of a cough unable to bring up anything and shortness of breath has been going on for about 4-5 days. Patient is comparing of severe postnasal drip. Patient was tested for Covid 19 which was negative. Patient chest x-ray showing infiltrate consistent with the CHF or pneumonia in bilateral lower lung bases. Patient has minimal pedal edema denied any orthopnea and denied any paroxysmal nocturnal dyspnea. She denied any chest pain. Patient doesn't usually use oxygen patient is presently requiring 5 L of recent patient was actually put on BiPAP now. Patient denied any fever chills and no leukocytosis. Mildly hyponatremic. Her BNP is only 800. 09/06/2020 Patient had a computed tomography scan of the chest which did not show any pneumonia because of which are disc and neurosurgeon patient can you done azithromycin, patient is on 6 L of oxygen now. Patient has significant and severe emphysema bilaterally on the CAT scan. Patient clinically doesn't appear to have any CHF but there is a concern of CHF as per the radiologist the computed tomography scan bleed because of which are Iopidine echo cardiac exam showed normal ejection fraction patient the will remain on Lasix will also consult cardiology. Patient also feels much better compared to yesterday still has some minimal ankle edema which improved compared to yesterday 09/07/2020 Patient remains on 5 L of oxygen saturating in the low 90s., Patient is hypokalemic secondary to lisinopril patient will be started on low potassium diet will give a dose of Taxotere difficult continues to go up lisinopril will be discontinued patient already got lisinopril today. Patient was also started on hydralazine dose of which will be increased patient is hyponatremic because of which I'll discontinue IV Lasix and there is no evidence of heart failure. Constitutional: Denied any fatigue denied any fever. Cardio vascular: denied any chest pain, palpitations Gastrointestinal denied any nausea vomiting Pulmonary: Improved shortness of breath Neurologic denied any new focal deficits All inpatient medications were reviewed and appropriate changes in these medications as dictated in the interval history and assessment and plan. Objective - Vital Signs Vital signs: Vital Signs Temp 97.7 F 09/07/20 07:45 Pulse 88 09/07/20 07:46 Resp 20 09/07/20 07:45 BP 148/69 09/07/20 07:45 Pulse Ox 91 L 09/07/20 07:45 Intake & Output 09/06/20 09/07/20 09/07/20 18:59 06:59 18:59 Intake Total 290 240 Output Total 600 Balance -310 240 Weight 85.6 kg Intake: IV 50 cefTRIAXone 2 gm In 50 Sodium Chloride 0.9% 50 ml @ 100 mls/hr IVPB Q24HR [facility] Rx#:[id number] Oral 240 240 Output: Urine 600 Other: Voiding Method Bedside Commode # Bowel Movements 2 - Exam PHYSICAL EXAMINATION: GENERAL: The patient is alert and oriented x3, not in any acute distress. Well developed, well nourished. HEENT: Pupils are round and equally reacting to light. EOMI. No scleral icterus. No conjunctival pallor. Normocephalic, atraumatic. No pharyngeal erythema. No thyromegaly. CARDIOVASCULAR: S1 and S2 present. No murmurs, rubs, or gallops. Doesn't have any JVD PULMONARY: Mildly decreased air entry into bilateral lung fieldsand wheezing was appreciated no crackles were appreciated ABDOMEN: Soft, nontender, nondistended, normoactive bowel sounds. No palpable organomegaly. MUSCULOSKELETAL: No joint swelling or deformity. EXTREMITIES: No cyanosis, clubbing, improved ankle edema NEUROLOGICAL: Gross neurological examination did not reveal any focal deficits. SKIN: No rashes. - Labs CBC & Chem 7: 09/06/20 06:46 09/07/20 06:05 Labs: Abnormal Lab Results - Last 24 Hours (Table) 09/06/20 09/06/20 09/06/20 Range/Units 12:35 17:00 20:17 Sodium (137-145) mmol/L Potassium (3.5-5.1) mmol/L BUN (7-17) mg/dL Glucose (74-99) mg/dL POC Glucose (mg/dL) 129 H 167 H 177 H (75-99) mg/dL 09/07/20 Range/Units 06:05 Sodium 132 L (137-145) mmol/L Potassium 5.4 H (3.5-5.1) mmol/L BUN 20 H (7-17) mg/dL Glucose 147 H (74-99) mg/dL POC Glucose (mg/dL) (75-99) mg/dL Microbiology - Last 24 Hours (Table) 09/05/20 09:51 Blood Culture - Preliminary Blood No Growth after 24 hours Assessment and Plan Plan: Acute hypoxic respiratory failure: Possibility of emphysema patient will most probably will require oxygen. Patient will be continued on systemic steroids if we're able to wean oxygen to around 3 L patient will be discharged at that time patient is feeling much better at this time patient is not wheezing on exam today. No evidence of CHF Lasix will be discontinue. Patient steroids will be switched to oral. -Hyponatremia secondary to diuretics which will be discontinued -Hyperkalemia: Secondary to lisinopril -COPD with possible acute exacerbation -Type 2 diabetes mellitus blood sugars are expected to go because of systemic steroids, patient was started on sliding scale insulin metformin will be held -Gastroesophageal reflux disease -Hyperlipidemia -Hypertension: -Coronary artery disease -Hypothyroidism -DVT prophylaxis with Lovenox
[2020-09-07] MEDS: ACETAMINOPHEN TAB 325 MG TAB PO PRN (09:40)
--- NOTE | 2020-09-07 12:42 | P.PN ---
Subjective Progress Note Date: 09/07/20 HISTORY OF PRESENT ILLNESS: Patient examined this morning at the bedside. She denies chest pain or pressure. She states her shortness of breath is improving. She also reports improvement of lower extremity edema. Blood pressure 171/84. PHYSICAL EXAM: VITAL SIGNS: Reviewed. GENERAL: Well-developed in no acute distress. NECK: Supple. No JVD or thyromegaly LUNGS: Respirations even and unlabored. Lungs essentially clear to auscultation bilaterally. HEART: Regular rate and rhythm. S1 and S2 heard. EXTREMITIES: Normal range of motion. No clubbing or cyanosis. Peripheral pulses intact. No lower extremity edema ASSESSMENT: Hypertension, uncontrolled Shortness of breath, possibly secondary to COPD Lower extremity edema secondary to Norvasc, patient not in acute heart failure Hyperkalemia PLAN: Kayexalate ordered per internal medicine May continue lisinopril at this time. Repeat potassium in AM Lasix discontinued per internal medicine Catapres discontinued yesterday and Hydralazine ordered per president/gm production & live experiences composition roll maker and cutter. Hydralazine dose increased this morning per internal medicine. Continue additional cardiac medications Monitor blood pressure Nurse practitioner note has been reviewed by physician. Signing provider agrees with the documented findings, assessment, and plan of care. Objective - Vital Signs Vital signs: Vital Signs Temp 97.9 F 09/07/20 11:16 Pulse 84 09/07/20 11:41 Resp 18 09/07/20 11:16 BP 171/84 09/07/20 11:16 Pulse Ox 93 L 09/07/20 11:16 Intake & Output 09/06/20 09/07/20 09/07/20 18:59 06:59 18:59 Intake Total 290 240 Output Total 600 Balance -310 240 Weight 85.6 kg Intake: IV 50 cefTRIAXone 2 gm In 50 Sodium Chloride 0.9% 50 ml @ 100 mls/hr IVPB Q24HR [facility] Rx#:[id number] Oral 240 240 Output: Urine 600 Other: Voiding Method Bedside Commode # Bowel Movements 2 - Labs CBC & Chem 7: 09/06/20 06:46 09/07/20 06:05 Labs: Abnormal Lab Results - Last 24 Hours (Table) 09/06/20 09/06/20 09/06/20 Range/Units 12:35 17:00 20:17 Sodium (137-145) mmol/L Potassium (3.5-5.1) mmol/L BUN (7-17) mg/dL Glucose (74-99) mg/dL POC Glucose (mg/dL) 129 H 167 H 177 H (75-99) mg/dL 09/07/20 Range/Units 06:05 Sodium 132 L (137-145) mmol/L Potassium 5.4 H (3.5-5.1) mmol/L BUN 20 H (7-17) mg/dL Glucose 147 H (74-99) mg/dL POC Glucose (mg/dL) (75-99) mg/dL Microbiology - Last 24 Hours (Table) 09/05/20 09:51 Blood Culture - Preliminary Blood No Growth after 48 hours
--- NOTE | 2020-09-07 13:06 | P.PN ---
Subjective Progress Note Date: 09/07/20 Principal diagnosis: ,Acute COPD exacerbation Acute on chronic hypoxic respiratory failure Tracheobronchitis Severe advance emphysema Type 2 diabetes mellitus Hypertension hypertensive cardiovascular disease Coronary artery disease Hypothyroidism 09/07/2020, patient seen eval examined during the rounds labs reviewed medications reviewed care plan discussed, shortness of breath is slightly improved now cuff congestion is improved but, patient remains on supplemental oxygen, has been switched to 5 L nasal cannula, saturation is 93%, but cultures have been no growth, This is a 79-year-old female had a remote history of smoking quit about 7 years ago used to smoke one pack per day, she presented into the emergency department with increasing shortness of breath and hypoxia, symptoms have been going on for almost 2 weeks, oxygen saturation were 87% on 6 L patient did require BiPAP 06/19 with 50% oxygen overnight with that symptoms significantly improved, currently patient is on [address] of the chest no pulmonary embolism is seen, severe emphysema Objective - Vital Signs Vital signs: Vital Signs Temp 97.9 F 09/07/20 11:16 Pulse 84 09/07/20 11:41 Resp 18 09/07/20 11:16 BP 171/84 09/07/20 11:16 Pulse Ox 93 L 09/07/20 11:16 Intake & Output 09/06/20 09/07/20 09/07/20 18:59 06:59 18:59 Intake Total 290 240 Output Total 600 Balance -310 240 Weight 85.6 kg Intake: IV 50 [id number] 2 gm In 50 Sodium Chloride 0.9% 50 ml @ 100 mls/hr IVPB Q24HR [facility] Rx#:[id number] Oral 240 240 Output: Urine 600 Other: Voiding Method Bedside Commode # Bowel Movements 2 - Exam - Constitutional General appearance: average body habitus, cooperative, disheveled - EENT Eyes: EOMI, PERRLA Ears: bilateral: normal - Neck Neck: normal ROM Carotids: bilateral: upstroke normal Thyroid: bilateral: normal size - Respiratory Respiratory: bilateral: diminished - Cardiovascular Rhythm: regular Heart sounds: normal: S1, S2 - Gastrointestinal General gastrointestinal: normal bowel sounds - Neurologic Neurologic: CNII-XII intact - Musculoskeletal Musculoskeletal: gait normal, generalized weakness, strength equal bilaterally - Psychiatric Psychiatric: A&O x's 3 - Labs CBC & Chem 7: 09/06/20 06:46 09/07/20 06:05 Labs: Abnormal Lab Results - Last 24 Hours (Table) 09/06/20 09/06/20 09/07/20 Range/Units 17:00 20:17 06:05 Sodium 132 L (137-145) mmol/L Potassium 5.4 H (3.5-5.1) mmol/L BUN 20 H (7-17) mg/dL Glucose 147 H (74-99) mg/dL POC Glucose (mg/dL) 167 H 177 H (75-99) mg/dL Microbiology - Last 24 Hours (Table) 09/05/20 09:51 Blood Culture - Preliminary Blood No Growth after 48 hours Assessment and Plan Assessment: Acute COPD exacerbation Acute on chronic hypoxic respiratory failure Tracheobronchitis Severe advance emphysema Type 2 diabetes mellitus Hypertension hypertensive cardiovascular disease Coronary artery disease Hypothyroidism Plan: Continue bronchodilator Continue supplemental oxygen IV steroids Continue antibiotics Breathing exercises incentive spirometry She'll likely will need COPD evaluation we'll do it on outpatient basis Patient likely will need home oxygen Time with Patient: Greater than 30
[2020-09-07] MEDS: ALPRAZolam 0.5 MG TAB PO PRN ×2 (14:43→21:00)
[2020-09-07] MEDS: ATORVASTATIN 20 MG TAB PO SCH (20:59)
[2020-09-08] MEDS: LEVOTHYROXINE 100 MCG TAB PO SCH (05:47)
[2020-09-08] MEDS: INSULIN ASPART (NovoLOG) 100 UNIT/ML VIAL SQ SCH ×4 (06:35→21:04)
[2020-09-08 08:05] LABS: Calcium 9.3 mg/dL (8.4-10.2); Potassium 4.8 mmol/L (3.5-5.1)
[2020-09-08] MEDS: METOPROLOL SUCCINATE (ER) 50 MG TAB.ER.24H PO SCH ×2 (08:16→20:06)
[2020-09-08] MEDS: AZITHROMYCIN 500 MG TAB PO SCH (08:16)
[2020-09-08] MEDS: predniSONE 20 MG TAB PO SCH (08:16)
[2020-09-08] MEDS: hydrALAZINE HCL 50 MG TAB PO SCH (08:16)
[2020-09-08] MEDS: amLODIPine 5 MG TAB PO SCH ×2 (08:16→20:07)
[2020-09-08] MEDS: lisinopriL 20 MG TAB PO SCH (08:16)
[2020-09-08] MEDS: IPRATROPIUM-ALBUTEROL 3 ML NEB INHALATION SCH ×4 (08:24→20:16)
--- NOTE | 2020-09-08 09:22 | P.PN ---
Subjective 79-year-old female came in with complains of a cough unable to bring up anything and shortness of breath has been going on for about 4-5 days. Patient is comparing of severe postnasal drip. Patient was tested for Covid 19 which was negative. Patient chest x-ray showing infiltrate consistent with the CHF or pneumonia in bilateral lower lung bases. Patient has minimal pedal edema denied any orthopnea and denied any paroxysmal nocturnal dyspnea. She denied any chest pain. Patient doesn't usually use oxygen patient is presently requiring 5 L of recent patient was actually put on BiPAP now. Patient denied any fever chills and no leukocytosis. Mildly hyponatremic. Her BNP is only 800. 09/06/2020 Patient had a computed tomography scan of the chest which did not show any pneumonia because of which are disc and neurosurgeon patient can you done azithromycin, patient is on 6 L of oxygen now. Patient has significant and severe emphysema bilaterally on the CAT scan. Patient clinically doesn't appear to have any CHF but there is a concern of CHF as per the radiologist the computed tomography scan bleed because of which are Iopidine echo cardiac exam showed normal ejection fraction patient the will remain on Lasix will also consult cardiology. Patient also feels much better compared to yesterday still has some minimal ankle edema which improved compared to yesterday 09/07/2020 Patient remains on 5 L of oxygen saturating in the low 90s., Patient is hypokalemic secondary to lisinopril patient will be started on low potassium diet will give a dose of Taxotere difficult continues to go up lisinopril will be discontinued patient already got lisinopril today. Patient was also started on hydralazine dose of which will be increased patient is hyponatremic because of which I'll discontinue IV Lasix and there is no evidence of heart failure. 09/08/2020 Patient is an not 4 L of oxygen today moving air better, his serum potassium did improve we'll repeat the basic metabolic profile again tomorrow possibility of discharge tomorrow. Patient probably will need to 3 L of oxygen Constitutional: Denied any fatigue denied any fever. Cardio vascular: denied any chest pain, palpitations Gastrointestinal denied any nausea vomiting Pulmonary: Improved shortness of breath Neurologic denied any new focal deficits All inpatient medications were reviewed and appropriate changes in these medications as dictated in the interval history and assessment and plan. Objective - Vital Signs Vital signs: Vital Signs Temp 97.4 F L 09/08/20 08:00 Pulse 84 09/08/20 08:38 Resp 20 09/08/20 08:00 BP 171/84 09/08/20 08:00 Pulse Ox 93 L 09/08/20 08:00 Intake & Output 09/07/20 09/08/20 09/08/20 18:59 06:59 18:59 Intake Total 480 420 240 Output Total 600 Balance -120 420 240 Weight 85.5 kg Intake: Oral 480 420 240 Output: Urine 600 Other: Voiding Method Bedside Commode # Voids 0 - Exam PHYSICAL EXAMINATION: GENERAL: The patient is alert and oriented x3, not in any acute distress. Well developed, well nourished. HEENT: Pupils are round and equally reacting to light. EOMI. No scleral icterus. No conjunctival pallor. Normocephalic, atraumatic. No pharyngeal erythema. No thyromegaly. CARDIOVASCULAR: S1 and S2 present. No murmurs, rubs, or gallops. Doesn't have any JVD PULMONARY: Mildly decreased air entry into bilateral lung fieldsand wheezing was appreciated no crackles were appreciated ABDOMEN: Soft, nontender, nondistended, normoactive bowel sounds. No palpable organomegaly. MUSCULOSKELETAL: No joint swelling or deformity. EXTREMITIES: No cyanosis, clubbing, improved ankle edema NEUROLOGICAL: Gross neurological examination did not reveal any focal deficits. SKIN: No rashes. - Labs CBC & Chem 7: 09/06/20 06:46 09/08/20 07:16 Labs: Abnormal Lab Results - Last 24 Hours (Table) 09/08/20 Range/Units 07:16 Sodium 134 L (137-145) mmol/L BUN 21 H (7-17) mg/dL Microbiology - Last 24 Hours (Table) 09/05/20 09:51 Blood Culture - Preliminary Blood No Growth after 48 hours Assessment and Plan Plan: Acute hypoxic respiratory failure: Possibility of emphysema patient will most probably will require oxygen on discharge. Patient will be continued on systemic steroids if we're able to wean oxygen to around 3 L patient will be discharged at that time patient is feeling much better at this time patient is not wheezing on exam today. No evidence of CHF Lasix will be discontinue. Patient steroids will be switched to oral. -Hyponatremia secondary to diuretics which will be discontinued -Hyperkalemia: Secondary to lisinopril, improved now patient the will continue receiving the lisinopril and will recheck the potassium tomorrow -COPD with possible acute exacerbation -Type 2 diabetes mellitus blood sugars are expected to go because of systemic steroids, patient was started on sliding scale insulin metformin will be held -Gastroesophageal reflux disease -Hyperlipidemia -Hypertension: -Coronary artery disease -Hypothyroidism -DVT prophylaxis with Lovenox
--- NOTE | 2020-09-08 11:46 | P.PN ---
Subjective Progress Note Date: 09/08/20 HISTORY OF PRESENT ILLNESS: Patient examined this morning at the bedside. She denies chest pain or pressure. She states her shortness of breath is improving. Potassium 4.8 today. Patient's blood pressure remains elevated. PHYSICAL EXAM: VITAL SIGNS: Reviewed. GENERAL: Well-developed in no acute distress. NECK: Supple. No JVD or thyromegaly LUNGS: Respirations even and unlabored. Lungs essentially clear to auscultation bilaterally. HEART: Regular rate and rhythm. S1 and S2 heard. EXTREMITIES: Normal range of motion. No clubbing or cyanosis. Peripheral pulses intact. No lower extremity edema ASSESSMENT: Hypertension, uncontrolled Shortness of breath, possibly secondary to COPD Lower extremity edema secondary to Norvasc, patient not in acute heart failure Hyperkalemia, resolved PLAN: Continue current cardiac medications Hydralazine dose increased this morning per internal medicine. Monitor blood pressure Patient stable from a cardiac perspective Nurse practitioner note has been reviewed by physician. Signing provider agrees with the documented findings, assessment, and plan of care. Objective - Vital Signs Vital signs: Vital Signs Temp 97.4 F L 09/08/20 08:00 Pulse 96 09/08/20 11:42 Resp 20 09/08/20 08:00 BP 171/84 09/08/20 08:00 Pulse Ox 93 L 09/08/20 08:00 Intake & Output 09/07/20 09/08/20 09/08/20 18:59 06:59 18:59 Intake Total 480 420 240 Output Total 600 Balance -120 420 240 Weight 85.5 kg Intake: Oral 480 420 240 Output: Urine 600 Other: Voiding Method Bedside Commode # Voids 0 - Labs CBC & Chem 7: 09/06/20 06:46 09/08/20 07:16 Labs: Abnormal Lab Results - Last 24 Hours (Table) 09/08/20 Range/Units 07:16 Sodium 134 L (137-145) mmol/L BUN 21 H (7-17) mg/dL Microbiology - Last 24 Hours (Table) 09/05/20 09:51 Blood Culture - Preliminary Blood No Growth after 48 hours
[2020-09-08] MEDS: ASPIRIN 81 MG PO SCH (12:36)
[2020-09-08] MEDS: hydrALAZINE HCL 25 MG TAB PO SCH ×2 (15:57→20:06)
[2020-09-08] MEDS: ALPRAZolam 0.5 MG TAB PO PRN (19:14)
[2020-09-08] MEDS: ATORVASTATIN 20 MG TAB PO SCH (20:07)
[2020-09-09] MEDS: INSULIN ASPART (NovoLOG) 100 UNIT/ML VIAL SQ SCH ×2 (06:16→12:18)
[2020-09-09] MEDS: LEVOTHYROXINE 100 MCG TAB PO SCH (06:27)
[2020-09-09 07:50] LABS: HCT 50.9 % (34.0-46.0); HGB 17.1 gm/dL (11.4-16.0); MCH 30.5 pg (25.0-35.0); MCHC 33.5 g/dL (31.0-37.0); MCV 91.1 fL (80.0-100.0); Mean Platelet Volume 6.5; Platelet Count 269 k/uL (150-450); RBC 5.58 m/uL (3.80-5.40); RDW 14.9 % (11.5-15.5); WBC 7.8 k/uL (3.8-10.6)
[2020-09-09] MEDS: IPRATROPIUM-ALBUTEROL 3 ML NEB INHALATION SCH ×2 (08:03→13:07)
[2020-09-09 08:09] LABS: Calcium 9.1 mg/dL (8.4-10.2); Potassium 3.9 mmol/L (3.5-5.1)
[2020-09-09] MEDS: predniSONE 20 MG TAB PO SCH (08:32)
[2020-09-09] MEDS: hydrALAZINE HCL 25 MG TAB PO SCH (08:33)
[2020-09-09] MEDS: ASPIRIN 81 MG PO SCH (08:33)
[2020-09-09] MEDS: METOPROLOL SUCCINATE (ER) 50 MG TAB.ER.24H PO SCH (08:34)
[2020-09-09] MEDS: AZITHROMYCIN 500 MG TAB PO SCH (08:34)
[2020-09-09] MEDS: lisinopriL 20 MG TAB PO SCH (08:34)
[2020-09-09] MEDS: amLODIPine 5 MG TAB PO SCH (08:34)
[2020-09-09 08:41] VITALS: BP 169/76; RESP 22; TEMP 97.4
--- NOTE | 2020-09-09 10:20 | P.DS ---
Providers Date of admission: 09/05/20 11:11 Attending physician: Araceli Watson Consults: 09/05/20 13:08 Consult Physician Routine Consulting Provider: Ed Meza Consult Reason/Comments: Hypoxia and COPD Do you want consulting provider notified?: Yes 09/06/20 09:16 Consult Physician Routine Consulting Provider: Gumaro Cabrera Consult Reason/Comments: Possible CHF Do you want consulting provider notified?: Yes [facility]: 79-year-old female came in with complains of a cough unable to bring up anything and shortness of breath has been going on for about 4-5 days. Patient is comparing of severe postnasal drip. Patient was tested for Covid 19 which was negative. Patient chest x-ray showing infiltrate consistent with the CHF or pneumonia in bilateral lower lung bases. Patient has minimal pedal edema denied any orthopnea and denied any paroxysmal nocturnal dyspnea. She denied any chest pain. Patient doesn't usually use oxygen patient is presently requiring 5 L of recent patient was actually put on BiPAP now. Patient denied any fever chills and no leukocytosis. Mildly hyponatremic. Her BNP is only 800. 09/06/2020 Patient had a computed tomography scan of the chest which did not show any pneumonia because of which are disc and neurosurgeon patient can you done azithromycin, patient is on 6 L of oxygen now. Patient has significant and severe emphysema bilaterally on the CAT scan. Patient clinically doesn't appear to have any CHF but there is a concern of CHF as per the radiologist the computed tomography scan bleed because of which are Iopidine echo cardiac exam showed normal ejection fraction patient the will remain on Lasix will also consult cardiology. Patient also feels much better compared to yesterday still has some minimal ankle edema which improved compared to yesterday 09/07/2020 Patient remains on 5 L of oxygen saturating in the low 90s., Patient is hypokalemic secondary to lisinopril patient will be started on low potassium diet will give a dose of Taxotere difficult continues to go up lisinopril will be discontinued patient already got lisinopril today. Patient was also started on hydralazine dose of which will be increased patient is hyponatremic because of which I'll discontinue IV Lasix and there is no evidence of heart failure. 09/08/2020 Patient is an not 4 L of oxygen today moving air better, his serum potassium did improve we'll repeat the basic metabolic profile again tomorrow possibility of discharge tomorrow. Patient probably will need to 3 L of oxygen 09/09/2020 Patient is requiring 4 L and patient will require home oxygen 4 L. Patient has advanced emphysema. Patient is otherwise clinically doing well will be discharged today. PHYSICAL EXAMINATION: GENERAL: The patient is alert and oriented x3, not in any acute distress. Well developed, well nourished. HEENT: Pupils are round and equally reacting to light. EOMI. No scleral icterus. No conjunctival pallor. Normocephalic, atraumatic. No pharyngeal erythema. No thyromegaly. CARDIOVASCULAR: S1 and S2 present. No murmurs, rubs, or gallops. Doesn't have any JVD PULMONARY: Mildly decreased air entry into bilateral lung fieldsand wheezing was appreciated no crackles were appreciated ABDOMEN: Soft, nontender, nondistended, normoactive bowel sounds. No palpable organomegaly. MUSCULOSKELETAL: No joint swelling or deformity. EXTREMITIES: No cyanosis, clubbing, improved ankle edema NEUROLOGICAL: Gross neurological examination did not reveal any focal deficits. SKIN: No rashes. Assessment and Plan Plan: Acute hypoxic respiratory failure: Secondary to advanced emphysema, patient will be discharged on 4 L of home oxygen. No evidence of heart failure or pneumonia -Hyponatremia secondary to diuretics which were discontinued -Hyperkalemia: Secondary to lisinopril, improved now -COPD exacerbation -Type 2 diabetes mellitus blood sugars are well controlled at this time continue with metformin -Gastroesophageal reflux disease -Hyperlipidemia -Hypertension: -Coronary artery disease -Hypothyroidism Patient Condition at Discharge: Stable Plan - Discharge Summary Discharge Rx Participant: Yes New Discharge Prescriptions: New Famotidine [Pepcid] 20 mg PO BID #20 tablet predniSONE 10 mg PO DAILY #30 tab Tiotropium [place] [Spiriva] 1 cap INHALATION DAILY #1 device Budesonide-Formot 160-4.5 Mcg [Symbicort 160-4.5 Mcg Inhaler] 2 puff INHALATION BID #1 inhaler hydrALAZINE HCL [Apresoline] 75 mg PO TID #90 tab Azithromycin [Zithromax] 500 mg PO DAILY #2 tab Continue amLODIPine [Norvasc] 5 mg PO BID lisinopriL [Prinivil] 20 mg PO DAILY ALPRAZolam [Xanax] 0.5 mg PO BID PRN PRN Reason: Anxiety Simvastatin [Zocor] 40 mg PO HS Montelukast [Singulair] 10 mg PO HS metFORMIN HCL 1,000 mg PO DAILY Levothyroxine Sodium [Synthroid] 100 mcg PO DAILY Metoprolol Succinate (ER) [Toprol XL] 50 mg PO BID Albuterol Inhaler [Ventolin Hfa Inhaler] 2 puff INHALATION RT-QID PRN PRN Reason: Shortness Of Breath Discharge Medication List ALPRAZolam [Xanax] 0.5 mg PO BID PRN 06/08/15 [History] Montelukast [Singulair] 10 mg PO HS 06/08/15 [History] Simvastatin [Zocor] 40 mg PO HS 06/08/15 [History] amLODIPine [Norvasc] 5 mg PO BID 06/08/15 [History] lisinopriL [Prinivil] 20 mg PO DAILY 06/08/15 [History] Levothyroxine Sodium [Synthroid] 100 mcg PO DAILY 02/07/19 [History] metFORMIN HCL 1,000 mg PO DAILY 02/07/19 [History] Albuterol Inhaler [Ventolin Hfa Inhaler] 2 puff INHALATION RT-QID PRN 09/05/20 [History] Metoprolol Succinate (ER) [Toprol XL] 50 mg PO BID 09/05/20 [History] Azithromycin [Zithromax] 500 mg PO DAILY #2 tab 09/09/20 [Rx] Budesonide-Formot 160-4.5 Mcg [Symbicort 160-4.5 Mcg Inhaler] 2 puff INHALATION BID #1 inhaler 09/09/20 [Rx] Famotidine [Pepcid] 20 mg PO BID #20 tablet 09/09/20 [Rx] Tiotropium [place] [Spiriva] 1 cap INHALATION DAILY #1 device 09/09/20 [Rx] hydrALAZINE HCL [Apresoline] 75 mg PO TID #90 tab 09/09/20 [Rx] predniSONE 10 mg PO DAILY #30 tab 09/09/20 [Rx] Follow up Appointment(s)/Referral(s): Ed Meza MD [STAFF PHYSICIAN] - 1 Week Ida Davis MD [Primary Care Provider] - 3 Days Discharge Disposition: HOME SELF-CARE
--- NOTE | 2020-09-09 12:36 | P.PN ---
Subjective Progress Note Date: 09/09/20 HISTORY OF PRESENT ILLNESS: Patient examined this morning at the bedside. She denies chest pain or pressure. Patient shortness of breath is improving. She remains on 4 L nasal cannula. She is being discharged home today on home oxygen. Vital signs are stable. PHYSICAL EXAM: VITAL SIGNS: Reviewed. GENERAL: Well-developed in no acute distress. NECK: Supple. No JVD or thyromegaly LUNGS: Respirations even and unlabored. Lungs essentially clear to auscultation bilaterally. HEART: Regular rate and rhythm. S1 and S2 heard. EXTREMITIES: Normal range of motion. No clubbing or cyanosis. Peripheral pulses intact. No lower extremity edema ASSESSMENT: Hypertension, uncontrolled Shortness of breath, possibly secondary to COPD Lower extremity edema secondary to Norvasc, patient not in acute heart failure Hyperkalemia, resolved PLAN: Continue current cardiac medications Patient may be discharged home today from a cardiac perspective. She is to follow up outpatient with Dr. Silverio. Nurse practitioner note has been reviewed by physician. Signing provider agrees with the documented findings, assessment, and plan of care. Objective - Vital Signs Vital signs: Vital Signs Temp 97.4 F L 09/09/20 08:00 Pulse 86 09/09/20 08:22 Resp 22 09/09/20 08:00 BP 169/76 09/09/20 08:00 Pulse Ox 94 L 09/09/20 08:00 Intake & Output 09/08/20 09/09/20 09/09/20 18:59 06:59 18:59 Intake Total 240 240 240 Balance 240 240 240 Weight 92 kg Intake: Oral 240 240 240 Other: # Voids 0 1 - Labs CBC & Chem 7: 09/09/20 06:49 09/09/20 06:49 Labs: Abnormal Lab Results - Last 24 Hours (Table) 09/09/20 09/09/20 Range/Units 06:49 06:49 RBC 5.58 H (3.80-5.40) m/uL Hgb 17.1 H (11.4-16.0) gm/dL Hct 50.9 H (34.0-46.0) % Sodium 134 L (137-145) mmol/L BUN 20 H (7-17) mg/dL Microbiology - Last 24 Hours (Table) 09/05/20 09:51 Blood Culture - Preliminary Blood No Growth after 96 hours
[2020-09-09 13:08] VITALS: PULSE 88
[2020-09-10 09:31] LABS: Glucose,Whole Blood 132 mg/dL (75-99)
[2020-09-10 09:32] LABS: Glucose,Whole Blood 104 mg/dL (75-99)
[2020-09-10 09:34] LABS: Glucose,Whole Blood 94 mg/dL (75-99)
[2020-09-10 09:37] LABS: Glucose,Whole Blood 146 mg/dL (75-99)
[2020-09-10 09:37] LABS: Glucose,Whole Blood 164 mg/dL (75-99)
[2020-09-10 09:38] LABS: Glucose,Whole Blood 166 mg/dL (75-99)
[2020-09-10 09:39] LABS: Glucose,Whole Blood 129 mg/dL (75-99)
[2020-09-10 09:39] LABS: Glucose,Whole Blood 109 mg/dL (75-99)
[2020-09-10 09:40] LABS: Glucose,Whole Blood 163 mg/dL (75-99)
== END 2020-09-09 14:50 | disposition home or self-care (01) | DRG 190 ==
LOC: EC 09:20 → 3SCARD 11:11
PROVIDERS: ADMIT Internal Medicine; ATTEND Internal Medicine
PROC: 5A09457 Assistance with Respiratory Ventilation, 24-96 Consecutive Hours, Continuous Positive Airway Pressure (ICD-10-PCS; principal; 2020-09-05)
DX: J43.9 Emphysema, unspecified (principal); J96.21 Acute and chronic respiratory failure with hypoxia; E87.1 Hypo-osmolality and hyponatremia; I25.10 Atherosclerotic heart disease of native coronary artery without angina pectoris; Z20.828 Contact with and (suspected) exposure to other viral communicable diseases; T50.2X5A Adverse effect of carbonic-anhydrase inhibitors, benzothiadiazides and other diuretics, initial encounter; T46.4X5A Adverse effect of angiotensin-converting-enzyme inhibitors, initial encounter; K21.9 Gastro-esophageal reflux disease without esophagitis; E87.6 Hypokalemia; E11.9 Type 2 diabetes mellitus without complications; E03.9 Hypothyroidism, unspecified; E78.5 Hyperlipidemia, unspecified; E87.5 Hyperkalemia; I50.9 Heart failure, unspecified; I11.0 Hypertensive heart disease with heart failure; Z87.891 Personal history of nicotine dependence; Z82.49 Family history of ischemic heart disease and other diseases of the circulatory system; Z79.899 Other long term (current) drug therapy; Z79.890 Hormone replacement therapy; Z79.84 Long term (current) use of oral hypoglycemic drugs; Z91.041 Radiographic dye allergy status; Z91.040 Latex allergy status; Z88.0 Allergy status to penicillin; Z91.09 Other allergy status, other than to drugs and biological substances; I25.2 Old myocardial infarction; Z98.890 Other specified postprocedural states; Z83.6 Family history of other diseases of the respiratory system
CPT/HCPCS: 36415; 71045; 71275; 80048; 80053; 83605; 83735; 83880; 84484; 85025; 85027; 85610; 85730; 87040; 87635; 93005; 93306; 94640; 94660; 94760; 96365; 96366; 96375; 99291

== ENCOUNTER → 2021-04-23 | Outpatient (CLI) | payer MEDICARE, BC ==
--- NOTE | 2021-04-23 12:04 | XR ---
EXAMINATION TYPE: XR Hip Complete LT DATE OF EXAM: 04/23/2021 COMPARISON: None HISTORY: Left leg pain left hip pain TECHNIQUE: 2 view left hip FINDINGS: Femoral head articulates with the acetabulum. Joint space is may have some mild narrowing. No acute fracture or dislocation is evident. Portion of the sacroiliac joint and symphysis pubis with in the [id number] is normal. IMPRESSION: 1. No acute osseous abnormality left hip. 2. 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
== END | disposition home or self-care (01) ==
LOC: RADXRYALE 10:48
PROVIDERS: ATTEND Internal Medicine
DX: M25.552 Pain in left hip (principal)
CPT/HCPCS: 73502

== ENCOUNTER 2022-12-18 11:50 | Inpatient (IN) | payer MEDICARE, BC ==
[2022-12-18] MEDS ORDERED: IPRATROPIUM 0.5 MG/2.5 ML NEBU INHALATION STA (12:12)
[2022-12-18] MEDS ORDERED: ALBUTEROL NEBULIZED 2.5 MG/3 ML INHALATION STA (12:12)
[2022-12-18] MEDS ORDERED: methylPREDNISolone SOD SUCCI 125 MG/2 ML VIAL IV STA (12:12)
[2022-12-18 12:30] LABS: Basophils % (A) 0 %; Eosinophils # (A) 0.1 k/uL (0-0.7); Eosinophils % (A) 1 %; Lymphocytes # (A) 1.2 k/uL (1.0-4.8); Lymphocytes % (A) 19 %; MCH 27.8 pg (25.0-35.0); MCHC 32.5 g/dL (31.0-37.0); MCV 85.6 fL (80.0-100.0); Mean Platelet Volume 7.5; Monocytes # (A) 0.5 k/uL (0-1.0); Monocytes % (A) 7 %; Neutrophils # (A) 4.3 k/uL (1.3-7.7); Neutrophils % (A) 71 %; Platelet Count 203 k/uL (150-450); Poikilocytosis Slight; RDW 15.7 % (11.5-15.5); WBC 6.2 k/uL (3.8-10.6)
--- NOTE | 2022-12-18 12:31 | ED ---
General Adult HPI - General Chief complaint: Shortness of Breath Stated complaint: Diff breathing Time Seen by Provider: 12/18/22 12:04 Source: patient, EMS, RN notes reviewed, old records reviewed Mode of arrival: EMS - History of Present Illness Initial comments: 82-year-old female who presents for evaluation of worsening dyspnea. Patient reports that she's had a dry cough and worsening dyspnea over the past 3 weeks. She is also reported increased bilateral lower extremity edema. She denies fever. Denies chest pain. Patient was transported by paramedics with hypoxia requiring a nonrebreather. She normally wears 3 L of oxygen at home. - Related Data Home Medications Medication Instructions Recorded Confirmed ALPRAZolam [Xanax] 0.5 mg PO BID 06/08/15 12/18/22 Montelukast [Singulair] 10 mg PO DAILY 06/08/15 12/18/22 Simvastatin [Zocor] 40 mg PO DAILY 06/08/15 12/18/22 amLODIPine [Norvasc] 5 mg PO BID 06/08/15 12/18/22 lisinopriL [Prinivil] 20 mg PO DAILY 06/08/15 12/18/22 Levothyroxine Sodium [Synthroid] 100 mcg PO DAILY 02/07/19 12/18/22 metFORMIN HCL [Glucophage] 1,000 mg PO DAILY 02/07/19 12/18/22 Albuterol Inhaler [Ventolin Hfa 2 puff INHALATION RT-Q4H PRN 09/05/20 12/18/22 Inhaler] Metoprolol Succinate (ER) [Toprol 50 mg PO BID 09/05/20 12/18/22 XL] Aspirin EC [Ecotrin] 325 mg PO DAILY 12/12/21 12/18/22 Budesonide-Formot 160-4.5 Mcg 2 puff INHALATION RT-BID 12/12/21 12/18/22 [Symbicort 160-4.5 Mcg Inhaler] Nitroglycerin Sl Tabs [Nitrostat] 0.4 mg SL Q5M PRN 12/12/21 12/18/22 Vit C/E/Zn/Coppr/Lutein/Zeaxan 1 cap PO AC-BID 12/12/21 12/18/22 [Preservision Areds 2 Softgel] Albuterol Nebulized [Ventolin 2.5 mg INHALATION RT-Q6H PRN 12/18/22 12/18/22 Nebulized] Previous Rx's Medication Instructions Recorded Furosemide [Lasix] 40 mg PO DAILY #30 tab 12/17/21 Potassium Chloride [Potassium 10 meq PO DAILY #30 tab 12/17/21 Chloride ER] Allergies Allergy/AdvReac Type Severity Reaction Status Date / Time Iodinated Contrast Media Allergy Unknown Verified 12/18/22 13:15 [Iodinated Contrast Media - IV Dye] Latex, Natural Rubber Allergy Rash/Hives Verified 12/18/22 13:15 nickel Allergy Rash/Hives Verified 12/18/22 13:15 Penicillins Allergy Unknown Verified 12/18/22 13:15 Childhood tuberculin,PPD,multi-puncture Allergy Rash/Hives Verified 12/18/22 13:15 Review of Systems ROS Statement: Those systems with pertinent positive or pertinent negative responses have been documented in the HPI. ROS Other: All systems not noted in ROS Statement are negative. 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 Carpal tunnel Past Anesthesia/Blood Transfusion Reactions: No Reported Reaction Additional Past Anesthesia/Blood Transfusion Reaction / Comment(s): occ vertigo Past Psychological History: No Psychological Hx Reported Smoking Status: Former smoker - Past Family History Father Additional Family Medical History / Comment(s): from tb at age 44 Mother Family Medical History: Hypertension Additional Family Medical History / Comment(s): had an enlarged heart - age 64(was'nt one to go to dr) General Exam General appearance: alert, in distress Head exam: Present: atraumatic, normocephalic Eye exam: Present: normal appearance, PERRL ENT exam: Present: normal exam Neck exam: Present: normal inspection Respiratory exam: Present: accessory muscle use. Absent: respiratory distress, wheezes, rales Cardiovascular Exam: Present: regular rate, normal rhythm GI/Abdominal exam: Present: soft. Absent: distended, tenderness Extremities exam: Present: normal capillary refill, pedal edema Neurological exam: Present: alert, oriented X3, CN II-XII intact. Absent: motor sensory deficit Psychiatric exam: Present: normal affect, normal mood Skin exam: Present: warm, dry, intact. Absent: cyanosis, diaphoretic Course Vital Signs 12/18/22 12/18/22 12/18/22 11:52 11:59 12:03 Temperature 98.1 F Pulse Rate 87 86 Respiratory 28 H 28 H Rate Blood Pressure 152/77 O2 Sat by Pulse 76 L 92 L Oximetry Fraction of Inspired Oxygen (FIO2) 12/18/22 12/18/22 12/18/22 12:20 12:24 12:28 Temperature Pulse Rate 86 Respiratory 22 Rate Blood Pressure 167/82 O2 Sat by Pulse 94 L Oximetry Fraction of 60 60 Inspired Oxygen (FIO2) 12/18/22 12/18/22 12/18/22 12:41 12:59 14:04 Temperature Pulse Rate 83 86 85 Respiratory 23 Rate Blood Pressure 155/75 O2 Sat by Pulse 94 L Oximetry Fraction of Inspired Oxygen (FIO2) EKG Findings - EKG Comments: EKG Findings:: EKG: Sinus rhythm rate of 84, AR interval 201, QRS duration 86, QTC [address] segment elevation. Medical Decision Making - Medical Decision Making 82-year-old female presenting with dyspnea. Was pt. sent in by a medical professional or institution (, PA, STOCK SHEETS CLEANER INSPECTOR, urgent care, hospital, or penitentiary...) When possible be specific @ -[No] Did you speak to anyone other than the patient for history (EMS, parent, family, police, friend...)? What history was obtained from this source @ -[No] Did you review nursing and triage notes (agree or disagree)? Why? @ -[I reviewed and agree with nursing and triage notes] Were old charts reviewed (outside hosp., previous admission, EMS record, old EKG, old radiological studies, urgent care reports/EKG's, penitentiary records)? Report findings @ -Reviewed previous admissions Differential Diagnosis (chest pain, altered mental status, abdominal pain women, abdominal pain men, vaginal bleeding, weakness, fever, dyspnea, syncope, headache, dizziness, GI bleed, back pain, seizure, CVA, palpatations, mental health, musculoskeletal)? @ -Differential Dyspnea: Coronary syndrome, arrhythmia, tamponade, asthma, COPD, pulmonary embolism, pneumonia, pneumothorax, pulmonary effusion, anaphylaxis, diabetic ketoacidosis, flailed chest, pulmonary contusion, diaphragmatic rupture, anemia, neuromuscular, this is not meant to be an all-inclusive list. EKG interpreted by me (3pts min.). @ -[As above] X-rays interpreted by me (1pt min.). @ -X-ray showed bilateral lower lobe infiltrate and pleural effusion CT interpreted by me (1pt min.). @ -[None done] U/S interpreted by me (1pt. min.). @ -[None done] What testing was considered but not performed or refused? (CT, X-rays, U/S, labs)? Why? @ -[None] What meds were considered but not given or refused? Why? @ -[None] Did you discuss the management of the patient with other professionals (professionals i.e. , PA, STOCK SHEETS CLEANER INSPECTOR, lab, RT, psych nurse, nephrology social worker, senior instrumentation engineer, teacher, hazard mitigation officer, employment evaluator/case manager)? Give summary @ -[Dr. Gutiérrez Was smoking cessation discussed for >3mins.? @ -[No] Was critical care preformed (if so, how long)? @ -yes Were there social determinants of health that impacted care today? How? (Homelessness, low income, unemployed, alcoholism, drug addiction, transportation, low edu. Level, literacy, decrease access to med. care, group home, rehab)? @ -[No] Was there de-escalation of care discussed even if they declined (Discuss DNR or withdrawal of care, Hospice)? DNR status @ -[No] What co-morbidities impacted this encounter? (DM, HTN, Smoking, COPD, CAD, Cancer, CVA, ARF, Chemo, Hep., AIDS, mental health diagnosis, sleep apnea, morbid obesity)? @ -COPD, asthma, CHF Was patient admitted / discharged? Hospital course, mention meds given and route, prescriptions, significant lab abnormalities, going to OR and other pertinent info. @ -Patient admitted for further management of multifactorial dyspnea predominantly CHF with a component of infiltrate suggesting pneumonia. Patient also has history of asthma and is treated with a BUN, Atrovent, steroids. Laboratory testing does reveal elevated hemoglobin and hematocrit, normal white blood cell count, negative troponin, significantly elevated BNP at 8000. Patient will be admitted to Dr. Gutiérrez who is aware. Undiagnosed new problem with uncertain prognosis? @ -[No] Drug Therapy requiring intensive monitoring for toxicity (Heparin, Nitro, Insulin, Cardizem)? @ -[No] Were any procedures done? @ -[No] Diagnosis/symptom? @ -[CHF, COPD, pneumonia Acute, or Chronic, or Acute on Chronic? @ -[Acute] Uncomplicated (without systemic symptoms) or Complicated (systemic symptoms)? @ -[Complicated] Side effects of treatment? @ -[No] Exacerbation, Progression, or Severe Exacerbation? @ -[No] Poses a threat to life or bodily function? How? (Chest pain, [place], [place], pneumonia, PE, COPD, DKA, ARF, appy, cholecystitis, CVA, Diverticulitis, Homicidal, Suicidal, threat to staff... and all critical care pts) @ -[Yes, respiratory failure] - Lab Data Result diagrams: 12/18/22 12:15 12/18/22 12:35 Lab Results 12/18/22 12/18/22 12/18/22 Range/Units 12:15 12:15 12:35 WBC 6.2 (3.8-10.6) k/uL RBC 7.37 H (3.80-5.40) m/uL Hgb 19.6 H* (11.4-16.0) gm/dL Hct 60.3 H* (34.0-46.0) % MCV 85.6 (80.0-100.0) fL MCH 27.8 (25.0-35.0) pg MCHC 32.5 (31.0-37.0) g/dL RDW 15.7 H (11.5-15.5) % Plt Count 203 (150-450) k/uL MPV 7.5 Neutrophils % 71 % Lymphocytes % 19 % Monocytes % 7 % Eosinophils % 1 % Basophils % 0 % Neutrophils # 4.3 (1.3-7.7) k/uL Lymphocytes # 1.2 (1.0-4.8) k/uL Monocytes # 0.5 (0-1.0) k/uL Eosinophils # 0.1 (0-0.7) k/uL Basophils # 0.0 (0-0.2) k/uL Poikilocytosis Slight PT (9.0-12.0) sec INR (<1.2) APTT (22.0-30.0) sec Sodium 132 L (137-145) mmol/L Potassium 4.7 (3.5-5.1) mmol/L Chloride 95 L (98-107) mmol/L Carbon Dioxide 30 (22-30) mmol/L Anion Gap 7 mmol/L BUN 18 H (7-17) mg/dL Creatinine 0.85 (0.52-1.04) mg/dL Est GFR (CKD-EPI)AfAm 75 (>60 ml/min/1.73 sqM) Est GFR (CKD-EPI)NonAf 65 (>60 ml/min/1.73 sqM) Glucose 95 (74-99) mg/dL Calcium 9.5 (8.4-10.2) mg/dL Magnesium 1.9 (1.6-2.3) mg/dL Total Bilirubin 1.4 H (0.2-1.3) mg/dL AST 43 H (14-36) U/L ALT 30 (4-34) U/L Alkaline Phosphatase 52 (38-126) U/L Troponin I (0.000-0.034) ng/mL NT-Pro-B Natriuret Pep 8600 pg/mL Total Protein 6.1 L (6.3-8.2) g/dL Albumin 3.9 (3.5-5.0) g/dL 12/18/22 12/18/22 Range/Units 12:35 12:35 WBC (3.8-10.6) k/uL RBC (3.80-5.40) m/uL Hgb (11.4-16.0) gm/dL Hct (34.0-46.0) % MCV (80.0-100.0) fL MCH (25.0-35.0) pg MCHC (31.0-37.0) g/dL RDW (11.5-15.5) % Plt Count (150-450) k/uL MPV Neutrophils % % Lymphocytes % % Monocytes % % Eosinophils % % Basophils % % Neutrophils # (1.3-7.7) k/uL Lymphocytes # (1.0-4.8) k/uL Monocytes # (0-1.0) k/uL Eosinophils # (0-0.7) k/uL Basophils # (0-0.2) k/uL Poikilocytosis PT 10.6 (9.0-12.0) sec INR 1.0 (<1.2) APTT 24.3 (22.0-30.0) sec Sodium (137-145) mmol/L Potassium (3.5-5.1) mmol/L Chloride (98-107) mmol/L Carbon Dioxide (22-30) mmol/L Anion Gap mmol/L BUN (7-17) mg/dL Creatinine (0.52-1.04) mg/dL Est GFR (CKD-EPI)AfAm (>60 ml/min/1.73 sqM) Est GFR (CKD-EPI)NonAf (>60 ml/min/1.73 sqM) Glucose (74-99) mg/dL Calcium (8.4-10.2) mg/dL Magnesium (1.6-2.3) mg/dL Total Bilirubin (0.2-1.3) mg/dL AST (14-36) U/L ALT (4-34) U/L Alkaline Phosphatase (38-126) U/L Troponin I 0.015 (0.000-0.034) ng/mL NT-Pro-B Natriuret Pep pg/mL Total Protein (6.3-8.2) g/dL Albumin (3.5-5.0) g/dL Critical Care Time Critical Care Time: Yes Total Critical Care Time: 35 Disposition Clinical Impression: Hypoxemia, Acute exacerbation of chronic obstructive pulmonary disease, Congestive heart failure Disposition: ADMITTED IP TO THIS HOSP Condition: Stable Is patient prescribed a controlled substance at d/c from ED?: No Referrals: Ida Davis MD [Primary Care Provider] - 1-2 days Time of Disposition: 14:30
--- NOTE | 2022-12-18 12:47 | XR ---
EXAMINATION TYPE: XR chest 1V portable DATE OF EXAM: 12/18/2022 COMPARISON: Chest x-ray December 12, 2021 HISTORY: Difficulty in breathing. TECHNIQUE: Single AP portable frontal upright view of the chest is obtained. FINDINGS: Persistent small to tiny bilateral pleural effusions. Stable right basilar opacity. Worsen ing left basilar opacity. Background chronic emphysematous change without pneumothorax seen bilateral ly. Cardiomegaly redemonstrated. Osseous structures are intact IMPRESSION: Cardiomegaly and chronic emphysematous change with tiny bilateral pleural effusions rede monstrated. Worsening left basilar acute infiltrate and/or atelectasis noted.
[2022-12-18 13:07] LABS: HCT 60.3 % (34.0-46.0); HGB 19.6 gm/dL (11.4-16.0)
[2022-12-18 13:08] LABS: RBC 7.37 m/uL (3.80-5.40)
[2022-12-18 13:27] LABS: Albumin 3.9 g/dL (3.5-5.0); Calcium 9.5 mg/dL (8.4-10.2); Magnesium 1.9 mg/dL (1.6-2.3); Total Bilirubin 1.4 mg/dL (0.2-1.3); Total Protein 6.1 g/dL (6.3-8.2)
[2022-12-18 13:28] LABS: Potassium 4.7 mmol/L (3.5-5.1)
[2022-12-18] MEDS ORDERED: FUROSEMIDE 10 MG/ML 4 ML VIAL IV STA (13:46)
[2022-12-18 14:01] LABS: Partial Thromboplastin Time 24.3 sec (22.0-30.0); Prothrombin Time 10.6 sec (9.0-12.0)
[2022-12-18] MEDS ORDERED: cefTRIAXone IN SWFI 1,000 MG/10 ML SYRINGE IVP STA (14:20)
[2022-12-18] MEDS ORDERED: AZITHROMYCIN 500 MG in SODIUM CHLORIDE 0.9% 250 ML IVPB STA (14:21)
[2022-12-18] MEDS ORDERED: NALOXONE 0.4 MG/ML 1 ML VIAL IV PRN (14:25)
[2022-12-18] MEDS: ACETAMINOPHEN TAB 325 MG TAB PO PRN ×2 (14:51→21:16)
[2022-12-18] MEDS ORDERED: ALBUTEROL NEBULIZED 2.5 MG/3 ML INHALATION PRN (15:17)
[2022-12-18] MEDS ORDERED: ALBUTEROL HFA INHALER INHALATION PRN (15:17)
[2022-12-18] MEDS: FUROSEMIDE 10 MG/ML 4 ML VIAL IV SCH ×2 (15:26→23:46)
[2022-12-18] MEDS: VIT A,C & E-LUTEIN-MINERALS 1 EACH TAB PO SCH (16:41)
--- NOTE | 2022-12-18 16:58 | HP ---
HISTORY AND PHYSICAL REASON FOR ADMISSION: Shortness of breath. HISTORY OF PRESENT ILLNESS: This is an 82-year-old woman with a past medical history of multiple medical problems consisting of COPD and asthma, who was admitted with shortness of breath for the last 3 days. The patient also had some leg swelling. The chest x-ray showed evidence of some possible CHF. There is not much sputum or fever. Bilateral leg edema is complained. BNP is elevated. The patient is also being treated for a combination of COPD and CHF. The patient has applied the BiPAP in the ER. PAST MEDICAL HISTORY: Reviewed includes asthma and COPD. Rest of the history also reviewed. HOME MEDICATIONS: Reviewed include KCl 10 mEq. Doses and rest of the medications reviewed. ALLERGIES: Reviewed include iodinated contrast dye. Rest of the allergies reviewed. FAMILY HISTORY: Hypertension. SOCIAL HISTORY: Previous history of smoking. REVIEW OF SYSTEMS: Fourteen-point review is negative except as mentioned earlier. PHYSICAL EXAMINATION: VITAL SIGNS: Pulse 85, blood pressure 155/75, respirations 23. HEENT: Conjunctivae are normal. NECK: No jugular venous distention. CARDIOVASCULAR: S1 and S2 muffled. RESPIRATORY: Bilateral scattered rhonchi and crackles. ABDOMEN: Soft, obese, and nontender. LEGS: Bilateral leg edema. NERVOUS SYSTEM: No focal deficits. SKIN: No ulcers or rashes. JOINTS: No active deforming arthropathy. LABORATORY DATA: Reviewed. IMAGING STUDIES: Chest x-ray reviewed personally. ASSESSMENT: 1. Shortness of breath, possibly combination of chronic obstructive pulmonary disease and asthma acute exacerbation as well as congestive heart failure acute exacerbation. 2. Hypertension. 3. Possible polycythemia. 4. Hyperlipidemia. 5. History of myocardial infarction. 6. History of degenerative joint disease. RECOMMENDATIONS AND DISCUSSION: In this 82-year-old woman, who presented with multiple complex medical issues, at this time, I recommend to continue with current medications. We will treat the patient with empiric diuretics and as well as bronchodilators. Cardiology and Pulmonary consultations. We would also obtain Hematology/Oncology consultation because hemoglobin is on the high side at this time with elevated hematocrit. Once again, prognosis is guarded. See orders for details. MMODL / IJN: [id number] /
[2022-12-18] MEDS ORDERED: FUROSEMIDE 10 MG/ML 4 ML VIAL IV SCH (21:00)
[2022-12-18] MEDS: ALPRAZolam 0.5 MG TAB PO SCH (21:16)
[2022-12-18] MEDS: METOPROLOL SUCCINATE (ER) 50 MG TAB.ER.24H PO SCH (21:17)
[2022-12-18] MEDS: amLODIPine 5 MG TAB PO SCH (21:17)
[2022-12-18] MEDS: SYMBICORT 160-4.5 MCG INHALER INHALATION SCH (21:39)
[2022-12-19] MEDS: ACETAMINOPHEN TAB 325 MG TAB PO PRN (03:35)
[2022-12-19] MEDS: VIT A,C & E-LUTEIN-MINERALS 1 EACH TAB PO SCH ×2 (06:15→17:05)
[2022-12-19] MEDS: LEVOTHYROXINE 100 MCG TAB PO SCH (06:15)
[2022-12-19] MEDS: SYMBICORT 160-4.5 MCG INHALER INHALATION SCH ×2 (07:38→20:34)
[2022-12-19] MEDS: ALPRAZolam 0.5 MG TAB PO SCH ×2 (09:19→22:05)
[2022-12-19] MEDS: lisinopriL 20 MG TAB PO SCH (09:19)
[2022-12-19] MEDS: ASPIRIN 325 MG TAB PO SCH (09:19)
[2022-12-19] MEDS: metFORMIN 500 MG TAB PO SCH (09:19)
[2022-12-19] MEDS: METOPROLOL SUCCINATE (ER) 50 MG TAB.ER.24H PO SCH ×2 (09:19→20:16)
[2022-12-19] MEDS: POTASSIUM CHLORIDE ER 10 MEQ TAB.ER.PRT PO SCH (09:19)
[2022-12-19] MEDS: amLODIPine 5 MG TAB PO SCH ×2 (09:20→20:16)
[2022-12-19] MEDS: FUROSEMIDE 10 MG/ML 4 ML VIAL IV SCH ×3 (09:20→22:43)
[2022-12-19] MEDS: ATORVASTATIN 20 MG TAB PO SCH (09:20)
[2022-12-19] MEDS: MONTELUKAST 10 MG TAB PO SCH (09:20)
--- NOTE | 2022-12-19 13:09 | P.CONS ---
History of Present Illness - Reason for Consult Consult date: 12/19/22 Polycythemia - Chief Complaint Shortness of breath - History of Present Illness Ms. Welsh is an 82-year-old woman with a past medical history significant for COPD, asthma, pulmonary hypertension, previous cigarette smoking, and previous history of MA who we are consulted for polycythemia. She is currently admitted for COPD exacerbation, which has been treated with antibiotics, steroids, and breathing treatments. She notes progressive improvement since admission. Hemoglobin on 12/18/2022 was noted to be 19.6 with hematocrit of 60.3%. WBC and platelets were within normal limits at 6.2 and 203 respectively. Review of her prior hemoglobins have revealed typical hemoglobin range of 16-17 . Currently, she denies any new onset headaches, blurry vision, epistaxis, or other autonomic symptoms. She denies any history of constitutional symptoms such as fevers, chills, night sweats, lymphadenopathy, anorexia, or weight loss prior to admission. She denies any history of aquagenic pruritus or erythromelalgia. Review of Systems 14 point review systems was conducted with pertinent positives and negatives as noted per HPI Past Medical History Past Medical History: Asthma, COPD, Eye Disorder, GERD/Reflux, Hyperlipidemia, Hypertension, Myocardial Infarction ([place]), Osteoarthritis ([place]), Pneumonia, Skin Disorder, Thyroid Disorder Additional Past Medical History / Comment(s): leaky heart valve, palpatations, arthiritis, 06-08-15 pne. 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 Carpal tunnel Past Anesthesia/Blood Transfusion Reactions: No Reported Reaction Additional Past Anesthesia/Blood Transfusion Reaction / Comm: occ vertigo Past Psychological History: No Psychological Hx Reported Additional Psychological History / Comment(s): pt lives alone in apt ([facility] [address]) has an elevator. pt does not drive, uses the bus, gets cleaning service in to help, pt uses walker when going to town and walking a long way. Smoking Status: Former smoker Past Alcohol Use History: None Reported Additional Past Alcohol Use History / Comment(s): started smoking at age 22 worked up to 2 ppd then quit 1994 Past Drug Use History: None Reported - Past Family History Father Additional Family Medical History / Comment(s): from tb at age 44 Mother Family Medical History: Hypertension Additional Family Medical History / Comment(s): had an enlarged heart - age 64(was'nt one to go to dr) Medications and Allergies Home Medications Medication Instructions Recorded Confirmed Type ALPRAZolam [Xanax] 0.5 mg PO BID 06/08/15 12/18/22 History Montelukast [Singulair] 10 mg PO DAILY 06/08/15 12/18/22 History Simvastatin [Zocor] 40 mg PO DAILY 06/08/15 12/18/22 History amLODIPine [Norvasc] 5 mg PO BID 06/08/15 12/18/22 History lisinopriL [Prinivil] 20 mg PO DAILY 06/08/15 12/18/22 History Levothyroxine Sodium [Synthroid] 100 mcg PO DAILY 02/07/19 12/18/22 History metFORMIN HCL [Glucophage] 1,000 mg PO DAILY 02/07/19 12/18/22 History Albuterol Inhaler [Ventolin Hfa 2 puff INHALATION RT-Q4H PRN 09/05/20 12/18/22 History Inhaler] Metoprolol Succinate (ER) [Toprol 50 mg PO BID 09/05/20 12/18/22 History XL] Aspirin EC [Ecotrin] 325 mg PO DAILY 12/12/21 12/18/22 History Budesonide-Formot 160-4.5 Mcg 2 puff INHALATION RT-BID 12/12/21 12/18/22 History [Symbicort 160-4.5 Mcg Inhaler] Nitroglycerin Sl Tabs [Nitrostat] 0.4 mg SL Q5M PRN 12/12/21 12/18/22 History Vit C/E/Zn/Coppr/Lutein/Zeaxan 1 cap PO AC-BID 12/12/21 12/18/22 History [Preservision Areds 2 Softgel] Furosemide [Lasix] 40 mg PO DAILY #30 tab 12/17/21 12/18/22 Rx Potassium Chloride [Potassium 10 meq PO DAILY #30 tab 12/17/21 12/18/22 Rx Chloride ER] Albuterol Nebulized [Ventolin 2.5 mg INHALATION RT-Q6H PRN 12/18/22 12/18/22 History Nebulized] Allergies Allergy/AdvReac Type Severity Reaction Status Date / Time Iodinated Contrast Media Allergy Unknown Verified 12/18/22 13:15 [Iodinated Contrast Media - IV Dye] Latex, Natural Rubber Allergy Rash/Hives Verified 12/18/22 13:15 nickel Allergy Rash/Hives Verified 12/18/22 13:15 Penicillins Allergy Unknown Verified 12/18/22 13:15 Childhood tuberculin,PPD,multi-puncture Allergy Rash/Hives Verified 12/18/22 13:15 Physical Exam Vitals: Vital Signs Temp Pulse Pulse Resp BP BP Pulse Ox 12/19/22 11:28 98.2 F 73 20 111/55 95 12/19/22 08:00 97.4 F L 81 20 139/72 90 L 12/19/22 07:39 95 12/19/22 03:40 98.1 F 81 22 149/81 91 L 12/18/22 23:35 98.4 F 82 20 104/53 92 L 12/18/22 22:01 87 12/18/22 21:40 87 88 L 12/18/22 21:00 97.7 F 90 22 153/80 88 L 12/18/22 19:47 89 22 147/68 88 L 12/18/22 19:00 91 21 105/81 90 L 12/18/22 18:20 78 17 142/68 94 L 12/18/22 17:25 79 16 130/67 94 L 12/18/22 16:44 83 20 130/73 93 L 12/18/22 15:22 12/18/22 15:17 82 20 151/75 92 L 12/18/22 14:04 85 23 155/75 94 L 12/18/22 12:59 86 FiO2 12/19/22 11:28 12/19/22 08:00 12/19/22 07:39 12/19/22 03:40 04/05/23 23:35 12/18/22 22:01 12/18/22 21:40 12/18/22 21:00 12/18/22 19:47 12/18/22 19:00 12/18/22 18:20 12/18/22 17:25 12/18/22 16:44 12/18/22 15:22 60 12/18/22 15:17 12/18/22 14:04 12/18/22 12:59 Intake and Output 12/18/22 12/19/22 12/19/22 22:59 06:59 14:59 Intake Total 20 118 Output Total 950 200 Balance 20 -950 -82 Intake: IV 20 Invasive Line 1 10 Invasive Line 2 10 Oral 118 Output: Urine 950 200 Other: Voiding Method Bedside Commode Bedside Commode # Bowel Movements 1 Weight 72.575 kg 72.5 kg - Constitutional General appearance: cooperative, no acute distress - EENT Eyes: EOMI - Respiratory Respiratory: bilateral: diminished, negative: wheezing - Cardiovascular Rhythm: regular - Gastrointestinal General gastrointestinal: no distended, normal bowel sounds, soft, no tenderness - Neurologic Neurologic: CNII-XII intact Results CBC & Chem 7: 12/18/22 12:15 12/18/22 12:35 Labs: Abnormal Lab Results - Last 24 Hours (Table) 12/18/22 12/18/22 Range/Units 12:15 12:35 RBC 7.37 H (3.80-5.40) m/uL Hgb 19.6 H* (11.4-16.0) gm/dL Hct 60.3 H* (34.0-46.0) % RDW 15.7 H (11.5-15.5) % Sodium 132 L (137-145) mmol/L Chloride 95 L (98-107) mmol/L BUN 18 H (7-17) mg/dL Total Bilirubin 1.4 H (0.2-1.3) mg/dL AST 43 H (14-36) U/L Total Protein 6.1 L (6.3-8.2) g/dL Assessment and Plan (1) Acute exacerbation of chronic obstructive pulmonary disease Current Visit: Yes Status: Acute Code(s): J44.1 - CHRONIC OBSTRUCTIVE PULMONARY DISEASE W (ACUTE) EXACERBATION SNOMED Code(s): 386163506 (2) Polycythemia Current Visit: Yes Status: Chronic Code(s): D75.1 - SECONDARY POLYCYTHEMIA SNOMED Code(s): 846154295 Plan: Polycythemia -Noted to have hemoglobin of 19.6 on 12/18/2022 -Review of medical records does reveal evidence of polycythemia with hemoglobin ranging from 16-17 since 2019. She has no other cell count abnormalities -She has no evidence of hyperviscosity or constitutional symptoms -We discussed difference between primary and secondary polycythemia -Given her medical history of pulmonary disease, she likely has secondary polycythemia -We discussed treatment of underlying etiology and how phlebotomy could make the polycythemia worse in this situation -I anticipate her hemoglobin would return to previous levels of 16-17 4-6 weeks following discharge -We are available to see her in the outpatient clinic to further discuss this issue and perform workup to rule out primary polycythemia, which is unlikely
--- NOTE | 2022-12-19 13:28 | PN ---
PROGRESS NOTE DATE OF SERVICE: 12/19/2022 SUBJECTIVE: This is an 82-year-old woman who was admitted with shortness of breath and possibly COPD, CHF acute exacerbation, being closely monitored. The patient is getting diuresed at this time. No chest pain, no palpitation. PHYSICAL EXAMINATION: VITAL SIGNS: Pulse is 83, blood pressure 139/70, respirations 20. HEENT: Conjunctivae normal. NECK: No jugular venous distention. RESPIRATIONS: Diminished at the bases, few scattered rhonchi and basal crackles. ABDOMEN: Soft. NERVOUS SYSTEM: No focal deficits. LABORATORY DATA: Reviewed. ASSESSMENT: 1. Shortness of breath, possibly chronic obstructive pulmonary disease and congestive heart failure acute exacerbation. 2. Hypertension. 3. Possible polycythemia. 4. Hyperlipidemia. 5. History of myocardial infarction. 6. History of degenerative joint disease. RECOMMENDATIONS: Recommended to continue current medications, continue symptomatic treatment. Continue with IV Lasix. Continue with bronchodilators. Also recommend Cardiology as well as pulmonology consultations also. See orders for details. MMODL / IJN: [id number] /
[2022-12-20] MEDS: VIT A,C & E-LUTEIN-MINERALS 1 EACH TAB PO SCH ×2 (06:08→17:29)
[2022-12-20] MEDS: LEVOTHYROXINE 100 MCG TAB PO SCH (06:08)
--- NOTE | 2022-12-20 07:10 | XR ---
EXAMINATION TYPE: XR chest 1V portable DATE OF EXAM: 12/20/2022 6:54 AM COMPARISON: Chest radiographs from 12/18/2022 TECHNIQUE: XR chest 1V portable Portable AP radiograph of the chest. CLINICAL INDICATION:Female, 82 years old with history of chf, short of breath; FINDINGS: Patient is rotated which limits evaluation. Lungs/Pleura: Hyperinflation. Small bilateral pleural effusions left greater than right. Stable to ma rginally improved left basilar opacity. No pneumothorax. Pulmonary vascularity: Unremarkable. Heart/mediastinum: Cardiomediastinal silhouette is enlarged and stable. Atherosclerotic calcificatio ns are seen in the aorta. Musculoskeletal: No acute osseous pathology. IMPRESSION: Persistent cardiomegaly and chronic emphysematous change with small bilateral pleural effusions with left greater than right. Stable to marginally improved left basilar infiltrate and/or atelectasis.
[2022-12-20 07:38] LABS: Basophils % (A) 0 %; Eosinophils # (A) 0.2 k/uL (0-0.7); Eosinophils % (A) 3 %; HCT 54.4 % (34.0-46.0); HGB 17.4 gm/dL (11.4-16.0); Lymphocytes # (A) 1.6 k/uL (1.0-4.8); Lymphocytes % (A) 25 %; MCH 27.8 pg (25.0-35.0); MCV 86.6 fL (80.0-100.0); Mean Platelet Volume 7.5; Monocytes # (A) 0.5 k/uL (0-1.0); Monocytes % (A) 8 %; Neutrophils % (A) 62 %; Platelet Count 188 k/uL (150-450); RBC 6.28 m/uL (3.80-5.40); RDW 15.6 % (11.5-15.5); WBC 6.4 k/uL (3.8-10.6)
[2022-12-20] MEDS: FUROSEMIDE 10 MG/ML 4 ML VIAL IV SCH ×3 (07:56→20:10)
[2022-12-20] MEDS: ATORVASTATIN 20 MG TAB PO SCH (07:57)
[2022-12-20] MEDS: POTASSIUM CHLORIDE ER 10 MEQ TAB.ER.PRT PO SCH (07:57)
[2022-12-20] MEDS: MONTELUKAST 10 MG TAB PO SCH (07:57)
[2022-12-20] MEDS: metFORMIN 500 MG TAB PO SCH (07:57)
[2022-12-20] MEDS: ASPIRIN 325 MG TAB PO SCH (07:57)
[2022-12-20] MEDS: METOPROLOL SUCCINATE (ER) 50 MG TAB.ER.24H PO SCH ×2 (07:57→20:10)
[2022-12-20] MEDS: ALPRAZolam 0.5 MG TAB PO SCH ×2 (07:57→20:10)
[2022-12-20] MEDS: amLODIPine 5 MG TAB PO SCH ×2 (07:58→20:10)
[2022-12-20] MEDS: lisinopriL 20 MG TAB PO SCH (07:58)
[2022-12-20 08:12] LABS: Albumin 3.5 g/dL (3.5-5.0); Potassium 3.7 mmol/L (3.5-5.1); Total Bilirubin 1.1 mg/dL (0.2-1.3); Total Protein 5.6 g/dL (6.3-8.2)
[2022-12-20] MEDS: SYMBICORT 160-4.5 MCG INHALER INHALATION SCH ×2 (08:26→22:10)
[2022-12-20] MEDS: ASPIRIN 81 MG PO SCH (10:31)
--- NOTE | 2022-12-20 12:07 | CDI ---
Documentation Clarification Form Date: 12/20/2022 11:56:46 AM From: Brenda Shannon RN, CCDS Email: [email or web address] Admit Date: 12/18/2022 2:25:00 PM Patient Name: Ramonita Welsh Visit Number: [id number] Discharge Date: ATTENTION: The Clinical Documentation Specialists (CDI) and [facility] Coding Staff appreciate your assistance in clarifying documentation. Please respond to the clarification below the line at the bottom and electronically sign. The CDI & [facility] Coding staff will review the response and follow-up if needed. Please note: Queries are made part of the Legal Health Record. If you have any questions, please contact the author of this message via ITS. Dr. Destiny Gutiérrez Your patient came in with SOB, leg swelling and has hypoxia. Based on this information and the findings below, is there an additional diagnosis that is clinically appropriate for this patient? History/Risk Factors: Asthma, COPD, HTN, GERD, former smoker Tobacco use: former Clinical Indicators: ED: "Hypoxemia, acute exacerbation of chronic obstructive pulmonary disease, congestive heart failure." H&P: "Shortness of breath, possibly combination of chronic obstructive pulmonary disease and asthma acute exacerbation as well as congestive heart failure acute exacerbation." Vital signs: RR 28 on admission Pulse oximetry: 76-95% Lung/Breathing assessment: short of breath with activity. BL scattered rhonchi and crackles. Treatment: IV Lasix 40mg Q12H Breathing tx: Albuterol O2: non-rebreather, bipap, nasal cannula and high flow oxygen Is there an additional diagnosis that is clinically appropriate for this patient? [ ] Acute Hypoxic Respiratory Failure (pO2 <60 mm Hg or SpO2 <91% on room air) [ ] Other Diagnosis, please specify [ ] Unable to determine Acute Hypoxic Respiratory Failure (pO2 <60 mm Hg or SpO2 <91% on room air) MTDD
--- NOTE | 2022-12-20 12:07 | P.CRDCN ---
History of Present Illness Consult date: 12/20/22 History of present illness: HISTORY OF PRESENT ILLNESS: This is a 82-year-old female with a past medical history significant for congestive heart failure, coronary artery disease, hypertension, hyperlipidemia, and diabetes. Patient follows in the office with Dr. Silverio. We have been asked to see the patient in consultation for CHF. Patient examined at the bedside. patient states she has been feeling short of breath for the past 3 weeks. She states her shortness of breath got worse the past couple days so she came to the emergency room for further evaluation. The patient was found to be in congestive heart failure. She was started on IV Lasix. The patient denies any chest pain or pressure. She denies any shortness of breath. Vital signs are stable. * EKG reveals sinus mechanism with no signs of acute ischemia. Nonspecific ST-T wave changes * Chest xray persistent cardiomegaly and chronic emphysematous change with small bilateral pleural effusions with left greater than right. Stable to marginally improved left basilar infiltrate and/or atelectasis. * Laboratory data: WBC 6.4. Hemoglobin 14.7. Platelet count 188. Sodium 136. Potassium 3.7. BUN 21. Creatinine 0.85. ProBNP 8600. * Current home cardiac medications include Lasix 40 mg daily, amlodipine 5 mg twice a day, lisinopril 20 mg daily, aspirin 325 mg daily, simvastatin 40 mg daily * Most recent echocardiogram obtained in November 2021 revealed ejection fraction 55-60%, moderate mitral regurgitation, mild tricuspid regurgitation, mild to moderate pulmonary hypertension * Cardiac catheterization history: September 2010 revealing chronic subtotal occlusion of distal circumflex and right PLV. Mild disease in LAD, RCA, OM 1 REVIEW OF SYSTEMS: At the time of my exam: CONSTITUTIONAL: Denies fever or chills. HEENT: Denies blurred vision, vision changes, or eye pain. Denies hemoptysis CARDIOVASCULAR: Denies chest pain. Denies orthopnea. Denies PND. Denies palpitations RESPIRATORY: Denies shortness of breath. GASTROINTESTINAL: Denies abdominal pain. Denies nausea or vomiting. HEMATOLOGIC: Denies bleeding disorders. GENITOURINARY: Denies any blood in urine. SKIN: Denies pruitis. Denies rash. PHYSICAL EXAM: VITAL SIGNS: Reviewed. GENERAL: Well-developed in no acute distress. HEENT: Head is normocephalic. Pupils are equal, round. Sclerae anicteric. Mucous membranes of the mouth are moist. Neck supple. No JVD or thyromegaly LUNGS: Respirations even and unlabored. Lungs essentially clear to auscultation bilaterally. HEART: Regular rate and rhythm. S1 and S2 heard. ABDOMEN: Soft. Nondistended. Nontender. EXTREMITIES: Normal range of motion. No clubbing or cyanosis. Peripheral pulses intact. No lower extremity edema NEUROLOGIC: Awake and alert. Oriented x 3. ASSESSMENT: Shortness of breath Acute on chronic heart failure with preserved ejection fraction Coronary artery disease Hypertension Hyperlipidemia Diabetes PLAN: Obtain 2-D echo to assess cardiac structure and function Continue IV Lasix every 12 hours Daily weights, accurate I&O, and monitoring of kidney function Continue additional home cardiac medications Further recommendations pending patient's course Nurse practitioner note has been reviewed by physician. Signing provider agrees with the documented findings, assessment, and plan of care. Past Medical History Past Medical History: Asthma, COPD, Eye Disorder, GERD/Reflux, Hyperlipidemia, Hypertension, Myocardial Infarction (LA), Osteoarthritis (OA), Pneumonia, Skin Disorder, Thyroid Disorder Additional Past Medical History / Comment(s): leaky heart valve, palpatations, arthiritis, 06-08-15 pne. ddd, cataracts(tiny) hiatal hernia, shingles last time 3-4 years ago(had several bouts with shingles.PT STATED HER DAD FROM TB W HEN PT WAS 9 YEARS OLD.PT STATED SHE WAS TESTED(NEG) AND XRYAS HAVE BEEN NEG. 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 Carpal tunnel Past Anesthesia/Blood Transfusion Reactions: No Reported Reaction Additional Past Anesthesia/Blood Transfusion Reaction / Comment(s): occ vertigo Past Psychological History: No Psychological Hx Reported Additional Psychological History / Comment(s): pt lives alone in apt ([facility]) has an elevator. pt does not drive, uses the bus, gets cleaning service in to help, pt uses walker when going to town and walking a long way. Smoking Status: Former smoker Past Alcohol Use History: None Reported Additional Past Alcohol Use History / Comment(s): started smoking at age 22 worked up to 2 ppd then quit 1994 Past Drug Use History: None Reported - Past Family History Father Additional Family Medical History / Comment(s): from tb at age 44 Mother Family Medical History: Hypertension Additional Family Medical History / Comment(s): had an enlarged heart - age 64(was'nt one to go to dr) Medications and Allergies Home Medications Medication Instructions Recorded Confirmed Type ALPRAZolam [Xanax] 0.5 mg PO BID 06/08/15 12/18/22 History Montelukast [Singulair] 10 mg PO DAILY 06/08/15 12/18/22 History Simvastatin [Zocor] 40 mg PO DAILY 06/08/15 12/18/22 History amLODIPine [Norvasc] 5 mg PO BID 06/08/15 12/18/22 History lisinopriL [Prinivil] 20 mg PO DAILY 06/08/15 12/18/22 History Levothyroxine Sodium [Synthroid] 100 mcg PO DAILY 02/07/19 12/18/22 History metFORMIN HCL [Glucophage] 1,000 mg PO DAILY 02/07/19 12/18/22 History Albuterol Inhaler [Ventolin Hfa 2 puff INHALATION RT-Q4H PRN 09/05/20 12/18/22 H istory Inhaler] Metoprolol Succinate (ER) [Toprol 50 mg PO BID 09/05/20 12/18/22 History XL] Aspirin EC [Ecotrin] 325 mg PO DAILY 12/12/21 12/18/22 History Budesonide-Formot 160-4.5 Mcg 2 puff INHALATION RT-BID 12/12/21 12/18/22 History [Symbicort 160-4.5 Mcg Inhaler] Nitroglycerin Sl Tabs [Nitrostat] 0.4 mg SL Q5M PRN 12/12/21 12/18/22 History Vit C/E/Zn/Coppr/Lutein/Zeaxan 1 cap PO AC-BID 12/12/21 12/18/22 History [Preservision Areds 2 Softgel] Furosemide [Lasix] 40 mg PO DAILY #30 tab 12/17/21 12/18/22 Rx Potassium Chloride [Potassium 10 meq PO DAILY #30 tab 12/17/21 12/18/22 Rx Chloride ER] Albuterol Nebulized [Ventolin 2.5 mg INHALATION RT-Q6H PRN 12/18/22 12/18/22 History Nebulized] Allergies Allergy/AdvReac Type Severity Reaction Status Date / Time Iodinated Contrast Media Allergy Unknown Verified 12/18/22 13:15 [Iodinated Contrast Media - IV Dye] Latex, Natural Rubber Allergy Rash/Hives Verified 12/18/22 13:15 nickel Allergy Rash/Hives Verified 12/18/22 13:15 Penicillins Allergy Unknown Verified 12/18/22 13:15 Childhood tuberculin,PPD,multi-puncture Allergy Rash/Hives Verified 12/18/22 13:15 Physical Exam Vitals: Vital Signs Temp Pulse Pulse Resp BP BP Pulse Ox 12/20/22 08:28 90 L 12/20/22 08:00 65 18 12/20/22 07:12 97.4 F L 65 18 139/66 93 L 12/20/22 03:47 97.8 F 65 20 139/73 89 L 12/20/22 00:00 97.8 F 73 20 129/71 91 L 12/19/22 20:05 97.5 F L 83 83 20 157/82 90 L 12/19/22 20:00 97.9 F 73 20 136/73 91 L 12/19/22 16:41 97.5 F L 76 20 146/68 91 L Intake and Output 12/19/22 12/20/22 12/20/22 22:59 06:59 14:59 Intake Total 138 10 Output Total 1350 1300 Balance -1212 -1300 10 Intake: IV 20 10 Invasive Line 1 10 10 Invasive Line 2 10 Oral 118 Output: Urine 1350 1300 Other: Voiding Method Bedside Commode Bedside Commode Bedside Commode Results 12/20/22 07:18 12/20/22 07:18 Cardiac Enzymes 12/20/22 Range/Units 07:18 AST 33 (14-36) U/L CBC 12/20/22 Range/Units 07:18 WBC 6.4 (3.8-10.6) k/uL RBC 6.28 H (3.80-5.40) m/uL Hgb 17.4 H (11.4-16.0) gm/dL Hct 54.4 H (34.0-46.0) % Plt Count 188 (150-450) k/uL Comprehensive Metabolic Panel 12/20/22 Range/Units 07:18 Sodium 136 L (137-145) mmol/L Potassium 3.7 (3.5-5.1) mmol/L Chloride 97 L (98-107) mmol/L Carbon Dioxide 35 H (22-30) mmol/L BUN 21 H (7-17) mg/dL Creatinine 0.85 (0.52-1.04) mg/dL Glucose 81 (74-99) mg/dL Calcium 9.0 (8.4-10.2) mg/dL AST 33 (14-36) U/L ALT 30 (4-34) U/L Alkaline Phosphatase 53 (38-126) U/L Total Protein 5.6 L (6.3-8.2) g/dL Albumin 3.5 (3.5-5.0) g/dL Current Medications Generic Name Dose Route Start Last Admin Trade Name Freq PRN Reason Stop Dose Admin Acetaminophen 650 mg 12/18/22 14:25 12/19/22 03:35 Acetaminophen Tab 325 Mg Tab PO 650 mg Q6HR PRN Administration Mild Pain or Fever > 100.5 Albuterol Sulfate 2.5 mg 12/18/22 15:17 12/18/22 21:39 Albuterol Nebulized 2.5 Mg/3 Ml INHALATION 2.5 mg RT-Q6H PRN Administration Shortness Of Breath Albuterol Sulfate 2 puff 12/18/22 15:17 Albuterol Hfa Inhaler INHALATION RT-Q4H PRN Shortness Of Breath Alprazolam 0.5 mg 12/18/22 21:00 12/20/22 07:57 Alprazolam 0.5 Mg Tab PO 0.5 mg BID JUDY Administration Amlodipine Besylate 5 mg 12/18/22 21:00 12/20/22 07:58 Amlodipine 5 Mg Tab PO 5 mg BID JUDY Administration Aspirin 81 mg 12/20/22 09:00 12/20/22 10:31 Aspirin 81 Mg PO Not Given DAILY JUDY Atorvastatin Calcium 20 mg 12/19/22 09:00 12/20/22 07:57 Atorvastatin 20 Mg Tab PO 20 mg DAILY JUDY Administration Budesonide/Formoterol Fumarate 2 puff 12/18/22 20:00 12/20/22 08:26 Symbicort 160-4.5 Mcg Inhaler INHALATION 2 puff RT-BID JUDY Administration Furosemide 40 mg 12/20/22 09:00 12/20/22 10:31 Furosemide 10 Mg/Ml 4 Ml Vial IV Not Given Q12HR JUDY Ceftriaxone Sodium 2 gm/ 50 mls @ 100 mls/hr 12/20/22 09:00 12/20/22 10:43 Sodium Chloride IVPB 100 mls/hr Q24HR JUDY Administration Protocol Levothyroxine Sodium 100 mcg 12/19/22 06:30 12/20/22 06:08 Levothyroxine 100 Mcg Tab PO 100 mcg DAILY@0630 JUDY Administration Lisinopril 20 mg 12/19/22 09:00 12/20/22 07:58 Lisinopril 20 Mg Tab PO 20 mg DAILY JUDY Administration Metformin HCl 1,000 mg 12/19/22 09:00 12/20/22 07:57 Metformin 500 Mg Tab PO 1,000 mg DAILY JUDY Administration Metoprolol Succinate 50 mg 12/18/22 21:00 12/20/22 07:57 Metoprolol Succinate (Er) 50 Mg Tab.Er.24h PO 50 mg BID JUDY Administration Montelukast Sodium 10 mg 12/19/22 09:00 12/20/22 07:57 Montelukast 10 Mg Tab PO 10 mg DAILY JUDY Administration Multivitamins/Minerals 1 each 12/18/22 17:30 12/20/22 06:08 Vit A,C & [id number] 1 Each Tab PO 1 each AC-BID JUDY Administration Naloxone HCl 0.2 mg 12/18/22 14:25 Naloxone 0.4 Mg/Ml 1 Ml Vial IV Q2M PRN Opioid Reversal Potassium Chloride 10 meq 12/19/22 09:00 12/20/22 07:57 Potassium Chloride Er 10 Meq Tab.Er.Prt PO 10 meq DAILY JUDY Administration Intake and Output 12/19/22 12/20/22 12/20/22 22:59 06:59 14:59 Intake Total 138 10 Output Total 1350 1300 Balance -1212 -1300 10 Intake: IV 20 10 Invasive Line 1 10 10 Invasive Line 2 10 Oral 118 Output: Urine 1350 1300 Other: Voiding Method Bedside Commode Bedside Commode Bedside Commode 12/20/22 07:18 12/20/22 07:18
--- NOTE | 2022-12-20 14:37 | P.CNPUL ---
History of Present Illness Consult date: 12/20/22 Requesting physician: Destiny Gutiérrez Reason for consult: dyspnea, COPD Chief complaint: Shortness of breath, cough, congestion History of present illness: This is a pleasant 82-year-old female patient who has a history of mild intermittent chronic bronchial asthma, hypertension, hyperlipidemia, chronic obstructive pulmonary disease, former smoker, carotid artery disease with previous left carotid endarterectomy, coronary artery disease with chronic subtotal occlusions, anxiety. She was brought into the emergency room on 12/18/2022 after developing worsening shortness of breath, cough and congestion. She was also having lower extremity swelling. She is oxygen dependent normally on 3 L/m per nasal cannula. Chest x-ray reveals cardiomegaly with chronic emphysematous changes and tiny bilateral pleural effusions. White count 6.4. Hemoglobin 17.4. Pletal it's 188. Sodium 136. Potassium 3.7. Bicarb 35. BUN 21. Creatinine 0.85. Focused on 0.10. Influenza screen negative. COVID-19 screen negative. RSV screen negative. She's been initiated on Symbicort, albuterol, Singulair. Antibiotics in the form of ceftriaxone. Initiated on IV diuretics. Currently in a -2.5 L balance. She is seen today in consultation on the selective care unit. Currently sitting up in bed. Awake and alert in no acute distress. Feeling a bit better today compared to yesterday. Quinine 6 L high flow nasal cannula to maintain O2 saturation the high 80s low 90s. Afebrile. Hemodynamically stable. Review of Systems REVIEW OF SYSTEMS: CONSTITUTIONAL: Denies any recent significant weight loss or weight gain. EYES: Denies change in vision. EARS, NOSE, MOUTH, THROAT: Denies headaches, denies sore throat. CARDIOVASCULAR: Denies chest pain, palpitations or syncopal episodes. RESPIRATORY: Positive for shortness of breath, cough, congestion no hemoptysis. GASTROINTESTINAL: Denies change in appetite, denies abdominal pain GENITOURINARY: Denies hematuria, denies infections. MUSKULOSKELETAL: Positive for lower extremity swelling. INTEGUMENTARY: Denies rash, denies eczema. NEUROLOGICAL: Denies recent memory loss, no recent seizure activity. PSYCHIATRIC: Denies anxiety, denies depression. HEMATOLOGIC/LYMPHATIC: Denies anemia, denies enlarged lymph nodes. Past Medical History Past Medical History: Asthma, COPD, Eye Disorder, GERD/Reflux, Hyperlipidemia, Hypertension, Myocardial Infarction (OR), Osteoarthritis (OA), Pneumonia, Skin Disorder, Thyroid Disorder Additional Past Medical History / Comment(s): leaky heart valve, palpatations, arthiritis, 06-08-15 pne. 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 Carpal tunnel Past Anesthesia/Blood Transfusion Reactions: No Reported Reaction Additional Past Anesthesia/Blood Transfusion Reaction / Comment(s): occ vertigo Past Psychological History: No Psychological Hx Reported Additional Psychological History / Comment(s): pt lives alone in apt ([facility]) has an elevator. pt does not drive, uses the bus, gets cleaning service in to help, pt uses walker when going to town and walking a long way. Smoking Status: Former smoker Past Alcohol Use History: None Reported Additional Past Alcohol Use History / Comment(s): started smoking at age 22 worked up to 2 ppd then quit 1994 Past Drug Use History: None Reported - Past Family History Father Additional Family Medical History / Comment(s): from tb at age 44 Mother Family Medical History: Hypertension Additional Family Medical History / Comment(s): had an enlarged heart - age 64(was'nt one to go to dr) Medications and Allergies Home Medications Medication Instructions Recorded Confirmed Type ALPRAZolam [Xanax] 0.5 mg PO BID 06/08/15 12/18/22 History Montelukast [Singulair] 10 mg PO DAILY 06/08/15 12/18/22 History Simvastatin [Zocor] 40 mg PO DAILY 06/08/15 12/18/22 History amLODIPine [Norvasc] 5 mg PO BID 06/08/15 12/18/22 History lisinopriL [Prinivil] 20 mg PO DAILY 06/08/15 12/18/22 History Levothyroxine Sodium [Synthroid] 100 mcg PO DAILY 02/07/19 12/18/22 History metFORMIN HCL [Glucophage] 1,000 mg PO DAILY 02/07/19 12/18/22 History Albuterol Inhaler [Ventolin Hfa 2 puff INHALATION RT-Q4H PRN 09/05/20 12/18/22 History Inhaler] Metoprolol Succinate (ER) [Toprol 50 mg PO BID 09/05/20 12/18/22 History XL] Aspirin EC [Ecotrin] 325 mg PO DAILY 12/12/21 12/18/22 History Budesonide-Formot 160-4.5 Mcg 2 puff INHALATION RT-BID 12/12/21 12/18/22 History [Symbicort 160-4.5 Mcg Inhaler] Nitroglycerin Sl Tabs [Nitrostat] 0.4 mg SL Q5M PRN 12/12/21 12/18/22 History Vit C/E/Zn/Coppr/Lutein/Zeaxan 1 cap PO AC-BID 12/12/21 12/18/22 History [Preservision Areds 2 Softgel] Furosemide [Lasix] 40 mg PO DAILY #30 tab 12/17/21 12/18/22 Rx Potassium Chloride [Potassium 10 meq PO DAILY #30 tab 12/17/21 12/18/22 Rx Chloride ER] Albuterol Nebulized [Ventolin 2.5 mg INHALATION RT-Q6H PRN 12/18/22 12/18/22 History Nebulized] Allergies Allergy/AdvReac Type Severity Reaction Status Date / Time Iodinated Contrast Media Allergy Unknown Verified 12/18/22 13:15 [Iodinated Contrast Media - IV Dye] Latex, Natural Rubber Allergy Rash/Hives Verified 12/18/22 13:15 nickel Allergy Rash/Hives Verified 12/18/22 13:15 Penicillins Allergy Unknown Verified 12/18/22 13:15 Childhood tuberculin,PPD,multi-puncture Allergy Rash/Hives Verified 12/18/22 13:15 Physical Exam Vitals: Vital Signs Temp Pulse Pulse Resp BP BP Pulse Ox 12/20/22 12:10 79 18 12/20/22 12:00 97.6 F 79 18 134/72 86 L 12/20/22 08:28 90 L 12/20/22 08:00 65 18 12/20/22 07:12 97.4 F L 65 18 139/66 93 L 12/20/22 03:47 97.8 F 65 20 139/73 89 L 12/20/22 00:00 97.8 F 73 20 129/71 91 L 12/19/22 20:05 97.5 F L 83 83 20 157/82 90 L 12/19/22 20:00 97.9 F 73 20 136/73 91 L 12/19/22 16:41 97.5 F L 76 20 146/68 91 L Intake and Output 12/19/22 12/20/22 12/20/22 22:59 06:59 14:59 Intake Total 138 130 Output Total 1350 1300 Balance -1212 -1300 130 Intake: IV 20 10 Invasive Line 1 10 10 Invasive Line 2 10 Oral 118 120 Output: Urine 1350 1300 Other: Voiding Method Bedside Commode Bedside Commode Toilet Bedside Commode GENERAL EXAM: Alert, pleasant 82-year-old female, on 6 L high flow nasal cannula, comfortable in no apparent distress. HEAD: Normocephalic. EYES: Normal reaction of pupils, equal size. NOSE: Clear with pink turbinates. THROAT: No erythema or exudates. NECK: No masses, no JVD. CHEST: No chest wall deformity. LUNGS: Equal air entry with no crackles, wheeze, rhonchi or dullness. CVS: S1 and S2 normal with no audible murmur, regular rhythm. ABDOMEN: No hepatosplenomegaly, normal bowel sounds, no guarding or rigidity. SPINE: No scoliosis or deformity SKIN: No rashes CENTRAL NERVOUS SYSTEM: No focal deficits, tone is normal in all 4 extremities. EXTREMITIES: There is no peripheral edema. No clubbing, no cyanosis. Peripheral pulses are intact. Results - Laboratory Findings CBC and BMP: 12/20/22 07:18 12/20/22 07:18 PT/INR, D-dimer PT 10.6 sec (9.0-12.0) 12/18/22 12:35 INR 1.0 (<1.2) 12/18/22 12:35 Abnormal lab findings: Abnormal Labs 12/18/22 12/18/22 12/19/22 12:15 12:35 14:10 RBC 7.37 H Hgb 19.6 H* Hct 60.3 H* RDW 15.7 H Sodium 132 L Chloride 95 L Carbon Dioxide BUN 18 H Total Bilirubin 1.4 H AST 43 H Total Protein 6.1 L Procalcitonin 0.10 H 12/20/22 12/20/22 07:18 07:18 RBC 6.28 H Hgb 17.4 H Hct 54.4 H RDW 15.6 H Sodium 136 L Chloride 97 L Carbon Dioxide 35 H BUN 21 H Total Bilirubin AST Total Protein 5.6 L Procalcitonin - Diagnostic Findings Chest x-ray: image reviewed Assessment and Plan Assessment: Acute on chronic hypoxemic respiratory failure secondary to an acute exacerbation of her chronic obstructive pulmonary disease as well as fluid volume overload and suspected diastolic congestive heart failure History of mild intermittent chronic bronchial asthma History of chronic obstructive pulmonary disease maintained on oxygen at 3 L in the outpatient setting Hypertension Hyperlipidemia Diabetes mellitus History of coronary artery disease with chronic occlusion Former smoker Plan: The patient was seen and evaluated Chest x-rays, medications and labs reviewed Continue with bronchodilators Continue with IV diuretics Titrate down the FiO2 as tolerated We will continue to follow and make further recommendations based on her clinical status I have personally seen and examined the patient, performed the documentation and the assessment and plan as written. Number of minutes spent on the visit: 20.
--- NOTE | 2022-12-20 17:04 | CA ---
Transthoracic Echo Report Name: Ramonita Welsh Age: 82 Gender: F : 1940 Exam Date: 12/20/2022 10:58 Exam Location: [facility] Ht (in): 63 Wt (lb): 159 Ordering Physician: Natividad Adames Attending/Referring Phys: [id number], Rosangela [employer] Install[employer]inist Kaitlin Francisco, MONCHO Procedure CPT: Indications: LV function, CHF Cardiac Hx: ID Technical Quality: Good Contrast 1: Total Dose (mL): Contrast 2: Total Dose (mL): MEASUREMENTS (Male / Female) Normal Values 2D ECHO LV Diastolic Diameter PLAX 4.0 cm 4.2 - 5.9 / 3.9 - 5.3 cm LV Systolic Diameter PLAX 3.3 cm IVS Diastolic Thickness 1.5 cm 0.6 - 1.0 / 0.6 - 0.9 cm LVPW Diastolic Thickness 1.4 cm 0.6 - 1.0 / 0.6 - 0.9 cm LV Relative Wall Thickness 0.7 RV Internal Dim ED PLAX 3.9 cm LVOT Diameter 2.0 cm LA Systolic Diameter LX 3.6 cm 3.0 - 4.0 / 2.7 - 3.8 cm LA Volume 37.7 cm??? 18 - 58 / 22 - 52 cm??? M-MODE Aortic Root Diameter MM 3.0 cm MV E Point Septal Separation 0.6 cm AV Cusp Separation MM 1.9 cm DOPPLER AV Peak Velocity 143.4 cm/s AV Peak Gradient 8.2 mmHg MV Area PHT 2.8 cm??? Mitral E Point Velocity 76.7 cm/s Mitral A Point Velocity 101.7 cm/s Mitral E to A Ratio 0.8 MV Deceleration Time 269.0 ms MV E' Velocity 3.4 cm/s Mitral E to MV E' Ratio 22.5 TR Peak Velocity 336.5 cm/s TR Peak Gradient 58.0 mmHg Right Ventricular Systolic Press 60.0 mmHg FINDINGS Left Ventricle Left ventricular ejection fraction is estimated at 55-60 %. Left ventricular cavity size normal. No obvious regional wall motion abnormalities. Moderately increased septal wall thickness. Moderately increased posterior wall thickness. Right Ventricle Moderate right ventricular dilatation. Moderate pulmonary hypertension. Moderately reduced right ventricular global systolic function. Right Atrium Mild right atrial dilatation. Left Atrium Normal left atrial size. Mitral Valve Mitral valve thickened. Mild mitral annular calcification. Mild mitral regurgitation. Aortic Valve Trileaflet aortic valve. Thickened aortic valve without stenosis. Tricuspid Valve Structurally normal tricuspid valve. Vlim-bs-lfmarded tricuspid regurgitation. Pulmonic Valve Structurally normal pulmonic valve. No pulmonic regurgitation. Pericardium Normal pericardium. No pericardial effusion. Aorta Normal size aortic root and proximal ascending aorta. CONCLUSIONS Normal LV systolic function Mild mitral regurgitation Mild to moderate tricuspid regurgitation Moderate pulmonary hypertension Dilated right ventricle with RV systolic dysfunction Previewed by: Dr. Gumaro Cabrera MD (Electronically Signed) Final Date: 20 December 2022 17:04
[2022-12-21] MEDS: LEVOTHYROXINE 100 MCG TAB PO SCH (06:28)
[2022-12-21] MEDS: VIT A,C & E-LUTEIN-MINERALS 1 EACH TAB PO SCH ×2 (06:28→17:09)
--- NOTE | 2022-12-21 07:40 | XR ---
EXAMINATION TYPE: XR chest 1V portable DATE OF EXAM: 12/21/2022 COMPARISON: 12/20/2022 HISTORY: Shortness of breath TECHNIQUE: Single frontal view of the chest is obtained. FINDINGS: No change in the by basilar predominantly interstitial infiltrates with probable small bilateral pleu ral effusions. No pneumothorax. Pulmonary vasculature is not congested. Osseous structures are intact IMPRESSION: Acute cardiopulmonary disease as described above with no interval change.
--- NOTE | 2022-12-21 07:50 | PN ---
PROGRESS NOTE DATE OF SERVICE: 12/20/2022 SUBJECTIVE: This is an 82-year-old woman who was admitted with CHF acute exacerbation, also had some elevated procalcitonin. The patient has also received some empiric antibiotics. The patient is also complaining of COPD/bronchial asthma at this time. PAST MEDICAL HISTORY: Reviewed. REVIEW OF SYSTEMS: NOTED OBJECTIVE: VITAL SIGNS: Pulse is 79, blood pressure 134/70, respirations 18. CHEST: A few scattered rhonchi, no rales. ABDOMEN: Soft. NERVOUS SYSTEM: No focal deficits. LABORATORY DATA: Hemoglobin 17.4, and other labs are noted. ASSESSMENT: 1. Shortness of breath, possibly congestive heart failure acute exacerbation with ejection fraction unknown. 2. Chronic obstructive pulmonary disease. 3. Asthma, acute exacerbation. 4. Hypertension. 5. Possible polycythemia secondary. 6. Hyperlipidemia. 7. History of myocardial infarction. 8. Elevated procalcitonin. 9. History of degenerative joint disease. 10.Multiple medical issues. RECOMMENDATIONS: Recommended to continue current management, continue symptomatic treatment. Otherwise we will continue with diuretics. Monitor fluid/electrolyte balance closely. Further recommendations to follow. See orders for details. MMODL / IJN: [id number] / MTDD
[2022-12-21] MEDS: SYMBICORT 160-4.5 MCG INHALER INHALATION SCH (08:01)
[2022-12-21] MEDS: lisinopriL 20 MG TAB PO SCH (08:22)
[2022-12-21] MEDS: ATORVASTATIN 20 MG TAB PO SCH (08:22)
[2022-12-21] MEDS: METOPROLOL SUCCINATE (ER) 50 MG TAB.ER.24H PO SCH ×2 (08:22→20:15)
[2022-12-21] MEDS: metFORMIN 500 MG TAB PO SCH (08:22)
[2022-12-21] MEDS: MONTELUKAST 10 MG TAB PO SCH (08:22)
[2022-12-21] MEDS: FUROSEMIDE 10 MG/ML 4 ML VIAL IV SCH ×2 (08:22→20:15)
[2022-12-21] MEDS: amLODIPine 5 MG TAB PO SCH ×2 (08:22→20:15)
[2022-12-21] MEDS: ASPIRIN 81 MG PO SCH (08:22)
[2022-12-21] MEDS: ALPRAZolam 0.5 MG TAB PO SCH ×2 (08:22→20:14)
[2022-12-21] MEDS: POTASSIUM CHLORIDE ER 10 MEQ TAB.ER.PRT PO SCH (08:26)
[2022-12-21 08:31] LABS: Calcium 9.3 mg/dL (8.4-10.2); Potassium 3.8 mmol/L (3.5-5.1)
--- NOTE | 2022-12-21 10:16 | P.PN ---
Subjective Progress Note Date: 12/21/22 HISTORY OF PRESENT ILLNESS: This is a 82-year-old female with a past medical history significant for congestive heart failure, coronary artery disease, hypertension, hyperlipidemia, and diabetes. Patient follows in the office with Dr. Silverio. We have been asked to see the patient in consultation for CHF. Patient examined at the bedside. patient states she has been feeling short of breath for the past 3 weeks. She states her shortness of breath got worse the past couple days so she came to the emergency room for further evaluation. The patient was found to be in congestive heart failure. She was started on IV Lasix. The patient denies any chest pain or pressure. She denies any shortness of breath. Vital signs are stable. * EKG reveals sinus mechanism with no signs of acute ischemia. Nonspecific ST-T wave changes * Chest xray persistent cardiomegaly and chronic emphysematous change with small bilateral pleural effusions with left greater than right. Stable to guillermina vielka improved left basilar infiltrate and/or atelectasis. * Laboratory data: WBC 6.4. Hemoglobin 14.7. Platelet count 188. Sodium 136. Potassium 3.7. BUN 21. Creatinine 0.85. ProBNP 8600. * Current home cardiac medications include Lasix 40 mg daily, amlodipine 5 mg twice a day, lisinopril 20 mg daily, aspirin 325 mg daily, simvastatin 40 mg daily * Most recent echocardiogram obtained in November 2021 revealed ejection fraction 55-60%, moderate mitral regurgitation, mild tricuspid regurgitation, mild to moderate pulmonary hypertension * Cardiac catheterization history: September 2010 revealing chronic subtotal occlusion of distal circumflex and right PLV. Mild disease in LAD, RCA, OM 1 12/21/2022 Patient examined this morning at the bedside. Patient denies chest pain or pressure. She continues to report shortness of breath. She remains on nasal cannula. She remains on IV Lasix 40 mg every 12 hours. Creatinine is stable at 0.77. Echocardiogram completed revealing ejection fraction 55-60% PHYSICAL EXAM: VITAL SIGNS: Reviewed. GENERAL: Well-developed in no acute distress. HEENT: Head is normocephalic. Pupils are equal, round. Sclerae anicteric. Mucous membranes of the mouth are moist. Neck supple. No JVD or thyromegaly LUNGS: Respirations even and unlabored. Lungs diminished bilaterally HEART: Regular rate and rhythm. S1 and S2 heard. ABDOMEN: Soft. Nondistended. Nontender. EXTREMITIES: Normal range of motion. No clubbing or cyanosis. Peripheral pulses intact. No lower extremity edema NEUROLOGIC: Awake and alert. Oriented x 3. ASSESSMENT: Shortness of breath Acute on chronic heart failure with preserved ejection fraction, EF 55-60% Acute exacerbation of COPD Coronary artery disease Hypertension Hyperlipidemia Diabetes PLAN: Pulmonary following for COPD exacerbation Continue IV Lasix every 12 hours Daily weights, accurate I&O, and monitoring of kidney function Continue additional home cardiac medications Further recommendations pending patient's course Nurse practitioner note has been reviewed by physician. Signing provider agrees with the documented findings, assessment, and plan of care. Objective - Vital Signs Vital signs: Vital Signs Temp 97.6 F 12/21/22 08:19 Pulse 71 12/21/22 08:19 Resp 17 12/21/22 08:19 BP 136/64 12/21/22 08:19 Pulse Ox 88 L 12/21/22 08:19 FiO2 60 12/18/22 15:22 Intake & Output 12/20/22 12/21/22 12/21/22 18:59 06:59 18:59 Intake Total 900 358 Output Total 600 800 600 Balance 300 -800 -242 Weight 68.4 kg Intake: IV 10 Invasive Line 1 10 Intake, IV Titration 50 Amount cefTRIAXone 2 gm In 50 Sodium Chloride 0.9% 50 ml @ 100 mls/hr IVPB Q24HR [facility] Rx#:[id number] Oral 840 358 Output: Urine 600 800 600 Other: Voiding Method Toilet Toilet Toilet Bedside Commode Bedside Commode Bedside Commode # Bowel Movements 2 - Labs CBC & Chem 7: 12/20/22 07:18 12/21/22 07:08 Labs: Abnormal Lab Results - Last 24 Hours (Table) 12/21/22 Range/Units 07:08 Chloride 96 L (98-107) mmol/L Carbon Dioxide 36 H (22-30) mmol/L BUN 19 H (7-17) mg/dL Microbiology - Last 24 Hours (Table) 12/18/22 14:40 Blood Culture - Preliminary Blood No Growth after 48 hours 12/18/22 14:25 Blood Culture - Preliminary Blood No Growth after 48 hours
[2022-12-21] MEDS ORDERED: FAMOTIDINE 20 MG/2 ML VIAL IV ONE (12:21)
[2022-12-21] MEDS ORDERED: methylPREDNISolone SOD SUCCI 125 MG/2 ML VIAL IV ONE (12:21)
[2022-12-21] MEDS ORDERED: diphenhydrAMINE 50 MG/ML 1 ML VIAL IVP ONE (12:21)
--- NOTE | 2022-12-21 13:36 | P.PN ---
Subjective Progress Note Date: 12/21/22 Principal diagnosis: Acute on chronic hypoxic respiratory failure secondary to acute exacerbation of COPD and suspect diastolic congestive heart failure This is a pleasant 82-year-old female patient who has a history of mild intermittent chronic bronchial asthma, hypertension, hyperlipidemia, chronic obstructive pulmonary disease, former smoker, carotid artery disease with pre vious left carotid endarterectomy, coronary artery disease with chronic subtotal occlusions, anxiety. She was brought into the emergency room on 12/18/2022 after developing worsening shortness of breath, cough and congestion. She was also having lower extremity swelling. She is oxygen dependent normally on 3 L/m per nasal cannula. Chest x-ray reveals cardiomegaly with chronic emphysematous changes and tiny bilateral pleural effusions. White count 6.4. Hemoglobin 17.4. Pletal it's 188. Sodium 136. Potassium 3.7. Bicarb 35. BUN 21. Creatinine 0.85. Focused on 0.10. Influenza screen negative. COVID-19 screen negative. RSV screen negative. She's been initiated on Symbicort, albuterol, Singulair. Antibiotics in the form of ceftriaxone. Initiated on IV diuretics. Currently in a -2.5 L balance. She is seen today in consultation on the selective care unit. Currently sitting up in bed. Awake and alert in no acute distress. Feeling a bit better today compared to yesterday. Quinine 6 L high flow nasal cannula to maintain O2 saturation the high 80s low 90s. Afebrile. H emodynamically stable. Reevaluated today on 12/21/2022, patient is feeling a bit better today compared to yesterday, nonetheless remains congested continues to cough and continues to have shortness of breath. She is on 6 L nasal cannula with O2 sats is 93%. Her WBC count is 6.4 hemoglobin is 17.4 basic metabolic profile is normal broken started level is upper limits of normal, vital screen for influenza A and influenza B RSV and COVID-19 came back negative chest x-ray continues show bilateral asymmetric interstitial infiltrates/edema with small pleural effusions BNP level on admission was 8600. Objective - Vital Signs Vital signs: Vital Signs Temp 97.6 F 12/21/22 08:19 Pulse 67 12/21/22 11:40 Resp 17 12/21/22 11:40 BP 130/73 12/21/22 11:40 Pulse Ox 93 L 12/21/22 11:40 FiO2 60 12/18/22 15:22 Intake & Output 12/20/22 12/21/22 12/21/22 18:59 06:59 18:59 Intake Total 900 358 Output Total 600 800 600 Balance 300 -800 -242 Weight 68.4 kg Intake: IV 10 Invasive Line 1 10 Intake, IV Titration 50 Amount cefTRIAXone 2 gm In 50 Sodium Chloride 0.9% 50 ml @ 100 mls/hr IVPB Q24HR [facility] Rx#:[id number] Oral 840 358 Output: Urine 600 800 600 Other: Voiding Method Toilet Toilet Toilet Bedside Commode Bedside Commode Bedside Commode # Bowel Movements 2 - Exam Physical Exam: Revealed 82-year-old female in no distress on 6 L high flow nasal cannula Head: Atraumatic, normocephalic. HEENT:[Neck is supple.] [No neck masses.] [No thyromegaly.] [No JVD.] Chest: [Fine crackles at the bases no rhonchi no wheezes Cardiac Exam: [Normal S1 and S2, no S3 gallop, no murmur.] Abdomen: [Soft, nontender, no megaly, no rebound, no guarding, normal bowel sounds.] Extremities: [No clubbing, no edema, no cyanosis.] Neurological Exam: [No focal neurologic deficit.] Alert and oriented [3. Psychiatric: Normal mood affect and normal mental status examination - Labs CBC & Chem 7: 12/20/22 07:18 12/21/22 07:08 Labs: Abnormal Lab Results - Last 24 Hours (Table) 12/21/22 12/21/22 Range/Units 07:08 11:50 D-Dimer 0.70 H (<0.60) mg/L FEU Chloride 96 L (98-107) mmol/L Carbon Dioxide 36 H (22-30) mmol/L BUN 19 H (7-17) mg/dL Microbiology - Last 24 Hours (Table) 12/18/22 14:40 Blood Culture - Preliminary Blood No Growth after 48 hours 12/18/22 14:25 Blood Culture - Preliminary Blood No Growth after 48 hours Assessment and Plan Assessment: Impression: Acute on chronic hypoxic respiratory failure patient is normally on 3 L of oxygen at home. Acute diastolic congestive heart failure History of chronic obstructive pulmonary disease with acute exacerbation. Benign essential hypertension Dyslipidemia Underlying coronary artery disease with chronic occlusion Former smoker Recommendation: Continue bronchodilators Continue diuretics and monitor electrolytes and renal profile Titrate FiO2 as tolerated Chest x-ray continues to show bilateral interstitial edema/infiltrates again her Procrit serum level is relatively normal We will continue to follow Time with Patient: Less than 30
--- NOTE | 2022-12-21 13:55 | CT ---
EXAMINATION TYPE: CT chest angio for PE DATE OF EXAM: 12/21/2022 COMPARISON: 09/05/2020 HISTORY: pe CT DLP: 245 mGycm Automated exposure control for dose reduction was used. CONTRAST: CT Chest for pulmonary embolism performed with with IV Contrast, patient injected with 60 mL of Isovu e 370. 3-D postprocessing was performed. FINDINGS: The pulmonary arteries and branches are well opacified there are no filling defects to suggest pulmon andrew embolism. There are marked emphysematous changes greatest in the upper lobes. There is a moderate left pleural effusion and a small right pleural effusion. There is mild compressive atelectasis in the left lung b ase. There is diffuse groundglass opacity in the mid lower lung zones suggest the presence of pulmona ry edema.. Similar findings were seen on the prior study. There is no mediastinal, hilar or axillary adenopathy. The bony thorax is intact. Limited scanning through the upper abdomen reveals no gross abnormality. IMPRESSION: 1. No evidence of pulmonary embolism. 2. Marked emphysematous changes. 3. Findings suggestive of CHF and clinical correlation is recommended. See above.
[2022-12-21] MEDS ORDERED: IPRATROPIUM-ALBUTEROL 3 ML NEB INHALATION PRN (16:50)
[2022-12-21] MEDS: methylPREDNISolone SOD SUCCI 40 MG/ML 1 ML VIAL IV SCH (20:15)
--- NOTE | 2022-12-21 21:06 | P.CONS ---
History of Present Illness - Reason for Consult Consult date: 12/21/22 Pneumonia Requesting physician: Destiny Gutiérrez - Chief Complaint Shortness of breath and cough x 3 weeks - History of Present Illness Patient is 82-year female with a past medical history negative for asthma/COPD hypertension hyperlipidemia IN and history of pneumonia patient presenting to the ER for evaluation of increasing shortness of breath that apparently has been getting worse for the last 3 weeks symptom mostly shortness of breath on minimal exertion and at rest patient also have a cough which is mild to moderate this was mostly dry in nature patient denies any sputum production patient presented to the hospital was afebrile and no fever has been recorded subsequently patient was hypoxic with O2 sat of 76% on room air she is currently 93% on 6 L nasal cannula patient did have a normal white count kidney function was normal bilirubin was mildly elevated 0.10 influenza RSV and COVID testing was negative blood cultures obtained which has been negative patient did have a chest x-ray cardiomegaly and chronic emphysematous changes with tiny bilateral effusion worsening left basilar acute infiltrate and/or atelectasis noted patient has been treated with ceftriaxone Solu-Medrol infectious he was consulted due to concern for possible pneumonia and need for antibiotic therapy patient however did mention improvement in some of her symptoms especially shortness of breath Review of Systems Positive point has been mentioned in the HPI rest of the systems are negative Past Medical History Past Medical History: Asthma, COPD, Eye Disorder, GERD/Reflux, Hyperlipidemia, Hypertension, Myocardial Infarction ([place]), Osteoarthritis (OA), Pneumonia, Skin Disorder, Thyroid Disorder Additional Past Medical History / Comment(s): leaky heart valve, palpatations, arthiritis, 06-08-15 pne. 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 Carpal tunnel Past Anesthesia/Blood Transfusion Reactions: No Reported Reaction Additional Past Anesthesia/Blood Transfusion Reaction / Comm: occ vertigo Past Psychological History: No Psychological Hx Reported Additional Psychological History / Comment(s): pt lives alone in apt ([facility]) has an elevator. pt does not drive, uses the bus, gets clean ing service in to help, pt uses walker when going to town and walking a long way. Smoking Status: Former smoker Past Alcohol Use History: None Reported Additional Past Alcohol Use History / Comment(s): started smoking at age 22 worked up to 2 ppd then quit 1994 Past Drug Use History: None Reported - Past Family History Father Additional Family Medical History / Comment(s): from tb at age 44 Mother Family Medical History: Hypertension Additional Family Medical History / Comment(s): had an enlarged heart - age 64(was'nt one to go to ) Medications and Allergies Home Medications Medication Instructions Recorded Confirmed Type ALPRAZolam [Xanax] 0.5 mg PO BID 06/08/15 12/18/22 History Montelukast [Singulair] 10 mg PO DAILY 06/08/15 12/18/22 History Simvastatin [Zocor] 40 mg PO DAILY 06/08/15 12/18/22 History amLODIPine [Norvasc] 5 mg PO BID 06/08/15 12/18/22 History lisinopriL [Prinivil] 20 mg PO DAILY 06/08/15 12/18/22 History Levothyroxine Sodium [Synthroid] 100 mcg PO DAILY 02/07/19 12/18/22 History metFORMIN HCL [Glucophage] 1,000 mg PO DAILY 02/07/19 12/18/22 History Albuterol Inhaler [Ventolin Hfa 2 puff INHALATION RT-Q4H PRN 09/05/20 12/18/22 History Inhaler] Metoprolol Succinate (ER) [Toprol 50 mg PO BID 09/05/20 12/18/22 History XL] Aspirin EC [Ecotrin] 325 mg PO DAILY 12/12/21 12/18/22 History Budesonide-Formot 160-4.5 Mcg 2 puff INHALATION RT-BID 12/12/21 12/18/22 History [Symbicort 160-4.5 Mcg Inhaler] Nitroglycerin Sl Tabs [Nitrostat] 0.4 mg SL Q5M PRN 12/12/21 12/18/22 History Vit C/E/Zn/Coppr/Lutein/Zeaxan 1 cap PO AC-BID 12/12/21 12/18/22 History [Preservision Areds 2 Softgel] Furosemide [Lasix] 40 mg PO DAILY #30 tab 12/17/21 12/18/22 Rx Potassium Chloride [Potassium 10 meq PO DAILY #30 tab 12/17/21 12/18/22 Rx Chloride ER] Albuterol Nebulized [Ventolin 2.5 mg INHALATION RT-Q6H PRN 12/18/22 12/18/22 History Nebulized] Allergies Allergy/AdvReac Type Severity Reaction Status Date / Time Iodinated Contrast Media Allergy Unknown Verified 12/18/22 13:15 [Iodinated Contrast Media - IV Dye] Latex, Natural Rubber Allergy Rash/Hives Verified 12/18/22 13:15 nickel Allergy Rash/Hives Verified 12/18/22 13:15 Penicillins Allergy Unknown Verified 12/18/22 13:15 Childhood tuberculin,PPD,multi-puncture Allergy Rash/Hives Verified 12/18/22 13:15 Physical Exam Vitals: Vital Signs Temp Pulse Resp BP Pulse Ox 12/21/22 11:40 67 17 130/73 93 L 12/21/22 08:19 97.6 F 71 17 136/64 88 L 12/21/22 08:05 88 L 12/21/22 04:20 71 18 144/75 95 12/20/22 23:37 68 18 136/64 95 12/20/22 20:05 98.2 F 78 17 161/78 91 L 12/20/22 16:00 69 124/72 91 L 12/20/22 14:00 79 18 Intake and Output 12/20/22 12/21/22 12/21/22 22:59 06:59 14:59 Intake Total 720 358 Output Total 600 800 600 Balance 120 -800 -242 Intake: Oral 720 358 Output: Urine 600 800 600 Other: Voiding Method Toilet Toilet Toilet Bedside Commode Bedside Commode Bedside Commode # Bowel Movements 2 Weight 68.4 kg GENERAL DESCRIPTION: An elderly female lying in bed, no distress. No tachypnea or accessory muscle of respiration use. HEENT: Shows Pallor , no scleral icterus. Oral mucous membrane is dry. No pharyngeal erythema or thrush NECK: Trachea central, no thyromegaly. LUNGS: Unlabored breathing. Decreased intensity of breath sounds. No wheeze or crackle. HEART: S1, S2, regular rate and rhythm. No loud murmur ABDOMEN: Soft, no tenderness , guarding or rigidity, no organomegaly EXTREMITIES: No edema of feet. SKIN: No rash, no masses palpable. NEUROLOGICAL: The patient is awake, alert, oriented x3, mood and affect normal. Results CBC & Chem 7: 12/20/22 07:18 12/21/22 07:08 Labs: Abnormal Lab Results - Last 24 Hours (Table) 12/21/22 12/21/22 Range/Units 07:08 11:50 D-Dimer 0.70 H (<0.60) mg/L FEU Chloride 96 L (98-107) mmol/L Carbon Dioxide 36 H (22-30) mmol/L BUN 19 H (7-17) mg/dL Microbiology - Last 24 Hours (Table) 12/18/22 14:40 Blood Culture - Preliminary Blood No Growth after 48 hours 12/18/22 14:25 Blood Culture - Preliminary Blood No Growth after 48 hours Assessment and Plan Plan: 1patient presented to the hospital with increasing shortness of breath with her lower extremity edema patient was noted to be hypoxic chest x-ray mostly currently with effusion more likely related to underlying cardiac etiology clinic suspicious low for underlying pneumonia in this patient with no fever elevated white count and procalcitonin only 0.10, possible component of COPD exacerbation with tracheobronchitis not excluded 2we will check a CRP and repeat procalcitonin to see need for any further antibiotics 3-continue with the steroids and bronchodilators per pulmonary We will follow on clinical condition and cultures to further adjust medication if needed Thank you for this consultation we will follow the patient along with you Time with Patient: Greater than 30
[2022-12-21] MEDS: IPRATROPIUM-ALBUTEROL 3 ML NEB INHALATION SCH (21:09)
[2022-12-21] MEDS: FORMOTEROL FUMARATE 20 MCG/2 ML NEBU INHALATION SCH (21:09)
[2022-12-21] MEDS: BUDESONIDE 1 MG/2 ML NEBU INHALATION SCH (21:09)
[2022-12-22] MEDS: methylPREDNISolone SOD SUCCI 40 MG/ML 1 ML VIAL IV SCH ×3 (03:33→20:29)
--- NOTE | 2022-12-22 05:44 | PN ---
PROGRESS NOTE DATE OF SERVICE: 12/21/2022 SUBJECTIVE: This is an 82-year-old woman who was admitted with CHF acute exacerbation, also suspected to have some pneumonia also. D-dimer was elevated and CT angio of the chest was done which showed some CHF. The patient is closely monitored at this time. OBJECTIVE: VITAL SIGNS: Pulse is 67, blood pressure ntd respirations 17. HEENT: Conjunctivae normal. CARDIOVASCULAR: S1, S2. RESPIRATORY: A few scattered rhonchi. No crackles. ABDOMEN: Soft. NERVOUS SYSTEM: No focal deficits. LABORATORY DATA: Reviewed. ASSESSMENT: 1. Shortness of breath, multifactorial, congestive heart failure acute exacerbation with acute on chronic diastolic dysfunction with preserved ejection fraction. 2. Chronic obstructive pulmonary disease, acute exacerbation. 3. Significant emphysematous chronic obstructive pulmonary disease. 4. Asthma, acute exacerbation. 5. Hypertension. 6. 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 7. Multiple medical issues. RECOMMENDATIONS AND DISCUSSION: This is an 82-year-old woman, who presented with multiple complex medical issues, we will monitor the patient closely. Continue intensive bronchodilator treatment. Otherwise, I would add DuoNeb to the current regimen and we will continue with Lasix also. Repeat labs. The patient is diuresing significantly. Further recommendations to follow. Procalcitonin is elevated also. MMODL / IJN: [id number] / MTDD
[2022-12-22] MEDS: VIT A,C & E-LUTEIN-MINERALS 1 EACH TAB PO SCH ×2 (06:08→17:23)
[2022-12-22] MEDS: LEVOTHYROXINE 100 MCG TAB PO SCH (06:08)
[2022-12-22] MEDS: IPRATROPIUM-ALBUTEROL 3 ML NEB INHALATION SCH ×3 (08:00→20:59)
[2022-12-22] MEDS: FORMOTEROL FUMARATE 20 MCG/2 ML NEBU INHALATION SCH ×2 (08:00→20:59)
[2022-12-22] MEDS: BUDESONIDE 1 MG/2 ML NEBU INHALATION SCH ×2 (08:00→20:59)
[2022-12-22] MEDS: ALPRAZolam 0.5 MG TAB PO SCH ×2 (08:01→20:29)
[2022-12-22] MEDS: metFORMIN 500 MG TAB PO SCH (08:01)
[2022-12-22] MEDS: METOPROLOL SUCCINATE (ER) 50 MG TAB.ER.24H PO SCH ×2 (08:01→20:30)
[2022-12-22] MEDS: lisinopriL 20 MG TAB PO SCH (08:01)
[2022-12-22] MEDS: ASPIRIN 81 MG PO SCH (08:01)
[2022-12-22] MEDS: ATORVASTATIN 20 MG TAB PO SCH (08:01)
[2022-12-22] MEDS: FUROSEMIDE 10 MG/ML 4 ML VIAL IV SCH (08:01)
[2022-12-22] MEDS: POTASSIUM CHLORIDE ER 10 MEQ TAB.ER.PRT PO SCH (08:01)
[2022-12-22] MEDS: amLODIPine 5 MG TAB PO SCH ×2 (08:01→20:30)
[2022-12-22] MEDS: MONTELUKAST 10 MG TAB PO SCH (08:01)
[2022-12-22] MEDS: ACETAMINOPHEN TAB 325 MG TAB PO PRN (08:07)
[2022-12-22 09:00] LABS: Basophils % (A) 0 %; Eosinophils % (A) 0 %; HGB 18.8 gm/dL (11.4-16.0); Hypochromasia Slight; Lymphocytes # (A) 0.4 k/uL (1.0-4.8); Lymphocytes % (A) 8 %; MCH 27.9 pg (25.0-35.0); MCHC 31.7 g/dL (31.0-37.0); MCV 88.1 fL (80.0-100.0); Mean Platelet Volume 7.2; Monocytes # (A) 0.1 k/uL (0-1.0); Monocytes % (A) 3 %; Neutrophils # (A) 4.6 k/uL (1.3-7.7); Neutrophils % (A) 89 %; Platelet Count 199 k/uL (150-450); RBC 6.71 m/uL (3.80-5.40); RDW 15.3 % (11.5-15.5); WBC 5.1 k/uL (3.8-10.6)
[2022-12-22 09:20] LABS: HCT 59.2 % (34.0-46.0)
[2022-12-22 09:23] LABS: African American GFR (CKD) 64 (>60 ml/min/1.73 sqM); Anion Gap 9 mmol/L; Blood Urea Nitrogen 28 mg/dL (7-17); C Reactive Protein <0.5 mg/dL (<1.0); Calcium 8.9 mg/dL (8.4-10.2); Carbon Dioxide 32 mmol/L (22-30); Chloride 96 mmol/L (98-107); Glucose 237 mg/dL (74-99); Non-African American GFR(CKD) 55 (>60 ml/min/1.73 sqM); Potassium 4.6 mmol/L (3.5-5.1); Sodium 137 mmol/L (137-145)
[2022-12-22] MEDS ORDERED: DEXTROSE 50% SYRINGE 50 ML IVP PRN ×2 (10:35)
--- NOTE | 2022-12-22 11:37 | P.PN ---
Subjective Progress Note Date: 12/22/22 HISTORY OF PRESENT ILLNESS: This is a 82-year-old female with a past medical history significant for congestive heart failure, coronary artery disease, hypertension, hyperlipidemia, and diabetes. Patient follows in the office with Dr. Silverio. We have been asked to see the patient in consultation for CHF. Patient examined at the bedside. patient states she has been feeling short of breath for the past 3 weeks. She states her shortness of breath got worse the past couple days so she came to the emergency room for further evaluation. The patient was found to be in congestive heart failure. She was started on IV Lasix. The patient denies any chest pain or pressure. She denies any shortness of breath. Vital signs are stable. * EKG reveals sinus mechanism with no signs of acute ischemia. Nonspecific ST-T wave changes * Chest xray persistent cardiomegaly and chronic emphysematous change with small bilateral pleural effusions with left greater than right. Stable to guillermina vielka improved left basilar infiltrate and/or atelectasis. * Laboratory data: WBC 6.4. Hemoglobin 14.7. Platelet count 188. Sodium 136. Potassium 3.7. BUN 21. Creatinine 0.85. ProBNP 8600. * Current home cardiac medications include Lasix 40 mg daily, amlodipine 5 mg twice a day, lisinopril 20 mg daily, aspirin 325 mg daily, simvastatin 40 mg daily * Most recent echocardiogram obtained in November 2021 revealed ejection fraction 55-60%, moderate mitral regurgitation, mild tricuspid regurgitation, mild to moderate pulmonary hypertension * Cardiac catheterization history: September 2010 revealing chronic subtotal occlusion of distal circumflex and right PLV. Mild disease in LAD, RCA, OM 1 12/21/2022 Patient examined this morning at the bedside. Patient denies chest pain or pressure. She continues to report shortness of breath. She remains on nasal cannula. She remains on IV Lasix 40 mg every 12 hours. Creatinine is stable at 0.77. Echocardiogram completed revealing ejection fraction 55-60% 12/22/2022 Patient examined this morning the bedside. Patient denies chest pain or pressure. She denies improvement in her shortness of breath. She was able to get in the shower this morning. She remains on IV Lasix. Vital signs are stable. She underwent a CTA yesterday which was negative for PE PHYSICAL EXAM: VITAL SIGNS: Reviewed. GENERAL: Well-developed in no acute distress. HEENT: Head is normocephalic. Pupils are equal, round. Sclerae anicteric. Mucous membranes of the mouth are moist. Neck supple. No JVD or thyromegaly LUNGS: Respirations even and unlabored. Lungs diminished bilaterally HEART: Regular rate and rhythm. S1 and S2 heard. ABDOMEN: Soft. Nondistended. Nontender. EXTREMITIES: Normal range of motion. No clubbing or cyanosis. Peripheral pulses intact. No lower extremity edema NEUROLOGIC: Awake and alert. Oriented x 3. ASSESSMENT: Shortness of breath Acute on chronic heart failure with preserved ejection fraction, EF 55-60% Acute exacerbation of COPD Coronary artery disease Hypertension Hyperlipidemia Diabetes PLAN: Pulmonary following for COPD exacerbation Discontinue IV Lasix. Begin oral Lasix 40 mg twice a day Daily weights, accurate I&O, and monitoring of kidney function Continue additional home cardiac medications Further recommendations pending patient's course Nurse practitioner note has been reviewed by physician. Signing provider agrees with the documented findings, assessment, and plan of care. Objective - Vital Signs Vital signs: Vital Signs Temp 97.9 F 12/21/22 19:47 Pulse 78 12/22/22 11:26 Resp 15 12/22/22 11:26 BP 120/67 12/22/22 11:26 Pulse Ox 90 L 12/22/22 11:26 FiO2 60 12/18/22 15:22 Intake & Output 12/21/22 12/22/22 12/22/22 18:59 06:59 18:59 Intake Total 834 120 Output Total 1200 600 100 Balance -366 -600 20 Weight 68.8 kg 68.3 kg Intake: Oral 834 120 Output: Urine 1200 600 100 Other: Voiding Method Toilet Toilet Bedside Commode Bedside Commode Bedside Commode - Labs CBC & Chem 7: 12/22/22 08:28 12/22/22 08:28 Labs: Abnormal Lab Results - Last 24 Hours (Table) 12/21/22 12/22/22 12/22/22 Range/Units 11:50 08:28 08:28 RBC 6.71 H (3.80-5.40) m/uL Hgb 18.8 H (11.4-16.0) gm/dL Hct 59.2 H* (34.0-46.0) % Lymphocytes # 0.4 L (1.0-4.8) k/uL D-Dimer 0.70 H (<0.60) mg/L FEU Chloride 96 L (98-107) mmol/L Carbon Dioxide 32 H (22-30) mmol/L BUN 28 H (7-17) mg/dL Glucose 237 H (74-99) mg/dL Microbiology - Last 24 Hours (Table) 12/18/22 14:40 Blood Culture - Preliminary Blood No Growth after 72 hours 12/18/22 14:25 Blood Culture - Preliminary Blood No Growth after 72 hours
[2022-12-22 11:50] LABS: Glucose,Whole Blood 123 mg/dL (70-110)
[2022-12-22] MEDS: INSULIN ASPART (NovoLOG) 100 UNIT/ML VIAL SQ SCH ×3 (11:53→20:29)
--- NOTE | 2022-12-22 11:54 | P.PN ---
Subjective Progress Note Date: 12/22/22 This is a pleasant 82-year-old female patient who has a history of mild intermittent chronic bronchial asthma, hypertension, hyperlipidemia, chronic obstructive pulmonary disease, former smoker, carotid artery disease with previous left carotid endarterectomy, coronary artery disease with chronic subtotal occlusions, anxiety. She was brought into the emergency room on 12/18/2022 after developing worsening shortness of breath, cough and congestion. She was also having lower extremity swelling. She is oxygen dependent normally on 3 L/m per nasal cannula. Chest x-ray reveals cardiomegaly with chronic emphysematous changes and tiny bilateral pleural effusions. White count 6.4. Hemoglobin 17.4. Pletal it's 188. Sodium 136. Potassium 3.7. Bicarb 35. BUN 21. Creatinine 0.85. Focused on 0.10. Influenza screen negative. COVID-19 screen negative. RSV screen negative. She's been initiated on Symbicort, albuterol, Singulair. Antibiotics in the form of ceftriaxone. Initiated on IV diuretics. Currently in a -2.5 L balance. She is seen today in consultation on the selective care unit. Currently sitting up in bed. Awake and alert in no acute distress. Feeling a bit better today compared to yesterday. Quinine 6 L high flow nasal cannula to maintain O2 saturation the high 80s low 90s. Afebrile. Hemodynamically stable. Reevaluated today on 12/21/2022, patient is feeling a bit better today compared to yesterday, nonetheless remains congested continues to cough and continues to have shortness of breath. She is on 6 L nasal cannula with O2 sats is 93%. Her WBC count is 6.4 hemoglobin is 17.4 basic metabolic profile is normal broken started level is upper limits of normal, vital screen for influenza A and influenza B RSV and COVID-19 came back negative chest x-ray continues show bilateral asymmetric interstitial infiltrates/edema with small pleural effusions BNP level on admission was 8600. The patient is seen today 12/22/2022 in follow-up on the selective care unit. She is up ambulating in her room. Awake and alert in no acute distress. Feeling better today compared to yesterday. Maintaining O2 saturations in the 90s on [address] angiogram revealed no evidence of pulmonary embolism. Marketed emphysematous changes. Findings suggestive CHF. Blood cultures revealed no growth. White count 5.1. Hemoglobin 18.8. Platelets 199. Sodium 137. Potassium 4.6. Bicarb 32. BUN 28. Creatinine 0.97. She is on DuoNeb inhalations, Pulmicort and Perforomist inhalations, IV Solu-Medrol, Singulair. Remains on oral diuretics. No accurate I&O. Antibiotics in the form of ceftriaxone. Objective - Vital Signs Vital signs: Vital Signs Temp 97.9 F 12/21/22 19:47 Pulse 78 12/22/22 11:26 Resp 15 12/22/22 11:26 BP 120/67 12/22/22 11:26 Pulse Ox 90 L 12/22/22 11:26 FiO2 60 12/18/22 15:22 Intake & Output 12/21/22 12/22/22 12/22/22 18:59 06:59 18:59 Intake Total 834 120 Output Total 1200 600 100 Balance -366 -600 20 Weight 68.8 kg 68.3 kg Intake: Oral 834 120 Output: Urine 1200 600 100 Other: Voiding Method Toilet Toilet Bedside Commode Bedside Commode Bedside Commode - Exam GENERAL EXAM: Alert, pleasant 82-year-old female, on 6 L high flow nasal cannula, comfortable in no apparent distress. HEAD: Normocephalic. EYES: Normal reaction of pupils, equal size. NOSE: Clear with pink turbinates. THROAT: No erythema or exudates. NECK: No masses, no JVD. CHEST: No chest wall deformity. LUNGS: Equal air entry with no crackles, wheeze, rhonchi or dullness. CVS: S1 and S2 normal with no audible murmur, regular rhythm. ABDOMEN: No hepatosplenomegaly, normal bowel sounds, no guarding or rigidity. SPINE: No scoliosis or deformity SKIN: No rashes CENTRAL NERVOUS SYSTEM: No focal deficits, tone is normal in all 4 extremities. EXTREMITIES: There is no peripheral edema. No clubbing, no cyanosis. Peripheral pulses are intact. - Labs CBC & Chem 7: 12/22/22 08:28 12/22/22 08:28 Labs: Abnormal Lab Results - Last 24 Hours (Table) 12/21/22 12/22/22 12/22/22 Range/Units 11:50 08:28 08:28 RBC 6.71 H (3.80-5.40) m/uL Hgb 18.8 H (11.4-16.0) gm/dL Hct 59.2 H* (34.0-46.0) % Lymphocytes # 0.4 L (1.0-4.8) k/uL D-Dimer 0.70 H (<0.60) mg/L FEU Chloride 96 L (98-107) mmol/L Carbon Dioxide 32 H (22-30) mmol/L BUN 28 H (7-17) mg/dL Glucose 237 H (74-99) mg/dL Microbiology - Last 24 Hours (Table) 12/18/22 14:40 Blood Culture - Preliminary Blood No Growth after 72 hours 12/18/22 14:25 Blood Culture - Preliminary Blood No Growth after 72 hours Assessment and Plan Assessment: Acute on chronic hypoxemic respiratory failure secondary to an acute exacerbation of her chronic obstructive pulmonary disease as an acute exacerbation of diastolic congestive heart failure History of mild intermittent chronic bronchial asthma History of chronic obstructive pulmonary disease maintained on oxygen at 3 L in the outpatient setting Hypertension Hyperlipidemia Diabetes mellitus History of coronary artery disease with chronic occlusion Former smoker Plan: The patient was seen and evaluated CT angiogram, medications and labs reviewed Continue with bronchodilators, IV Solu-Medrol Titrate down the FiO2 as tolerated Has home oxygen at 3 L We will continue to follow I have personally seen and examined the patient, performed the documentation and the assessment and plan as written. Number of minutes spent on the visit: 10.
[2022-12-22] MEDS: FUROSEMIDE 40 MG TAB PO SCH (16:21)
[2022-12-22 16:41] LABS: Glucose,Whole Blood 140 mg/dL (70-110)
--- NOTE | 2022-12-22 16:56 | P.PN ---
Subjective Progress Note Date: 12/22/22 Principal diagnosis: Possible pneumonia Patient is 82-year female with a past medical history negative for asthma/COPD hypertension hyperlipidemia [place] and history of pneumonia patient presenting to the ER for evaluation of increasing shortness of breath that apparently has been getting worse for the last 3 weeks symptom mostly shortness of breath on minimal exertion and at rest patient also have a cough, patient did have abnormal x-ray question of possible pneumonia. on today's evaluation that is 12/22/2022, the patient denies having any fever or any chills, the patient is currently breathing comfortably on 5 L nasal cannula he denies having any chest pain minimal cough dry in nature no nausea no vomiting no abdominal pain or diarrhea Objective - Vital Signs Vital signs: Vital Signs Temp 97.9 F 12/21/22 19:47 Pulse 77 12/22/22 12:00 Resp 15 12/22/22 11:26 BP 120/67 12/22/22 11:26 Pulse Ox 88 L 12/22/22 12:58 FiO2 60 12/18/22 15:22 Intake & Output 12/21/22 12/22/22 12/22/22 18:59 06:59 18:59 Intake Total 834 330 Output Total 1200 600 100 Balance -366 -600 230 Weight 68.8 kg 68.3 kg Intake: Oral 834 330 Output: Urine 1200 600 100 Other: Voiding Method Toilet Toilet Bedside Commode Bedside Commode Bedside Commode - Exam GENERAL DESCRIPTION: An elderly female lying in bed in no distress RESPIRATORY SYSTEM: Unlabored breathing , decreased breath sounds at bases HEART: S1 S2 regular rate and rhythm , ABDOMEN: Soft , no tenderness EXTREMITIES: No edema feet - Labs CBC & Chem 7: 12/22/22 08:28 12/22/22 08:28 Labs: Abnormal Lab Results - Last 24 Hours (Table) 12/22/22 12/22/22 12/22/22 Range/Units 08:28 08:28 11:49 RBC 6.71 H (3.80-5.40) m/uL Hgb 18.8 H (11.4-16.0) gm/dL Hct 59.2 H* (34.0-46.0) % Lymphocytes # 0.4 L (1.0-4.8) k/uL Chloride 96 L (98-107) mmol/L Carbon Dioxide 32 H (22-30) mmol/L BUN 28 H (7-17) mg/dL Glucose 237 H (74-99) mg/dL POC Glucose (mg/dL) 123 H (70-110) mg/dL Microbiology - Last 24 Hours (Table) 12/18/22 14:40 Blood Culture - Preliminary Blood No Growth after 72 hours 12/18/22 14:25 Blood Culture - Preliminary Blood No Growth after 72 hours Assessment and Plan (1) Abnormal chest x-ray Current Visit: Yes Status: Acute Code(s): R93.89 - ABNORMAL FINDINGS ON DX IMAGING OF OTH BODY STRUCTURES SNOMED Code(s): 888227405 Plan: 1patient presented to the hospital with increasing shortness of breath with her lower extremity edema patient was noted to be hypoxic chest x-ray mostly cu rrently with effusion more likely related to underlying cardiac etiology clinic suspicious low for underlying pneumonia in this patient with no fever elevated white count and procalcitonin only 0.10, possible component of COPD exacerbation with tracheobronchitis not excluded, clinically not behaving as pneumonia and especially with a normal inflammatory markers anybody skin be safely discontinued, patient to continue with the steroids and bronchodilators per pulmonary Time with Patient: Less than 30
[2022-12-22 20:14] LABS: Glucose,Whole Blood 185 mg/dL (70-110)
--- NOTE | 2022-12-22 22:24 | PN ---
PROGRESS NOTE DATE OF SERVICE: 12/22/2022 SUBJECTIVE: This is an 82-year-old woman, who was admitted with CHF acute exacerbation, also had possible COPD and possibly bronchopneumonia. No chest pain. No palpitation. OBJECTIVE: VITAL SIGNS: Pulse 78, blood pressure 120/67, respirations 15. CHEST: A few scattered rhonchi. CARDIOVASCULAR: S1, S2 muffled. ABDOMEN: Soft. LABORATORY DATA: Reviewed. ASSESSMENT: 1. Shortness of breath multifactorial, possible congestive heart failure acute exacerbation with acute on chronic diastolic dysfunction with preserved ejection fraction as well as chronic obstructive pulmonary disease acute exacerbation. 2. Significant emphysema and chronic obstructive pulmonary disease. 3. Possible upper limb tracheobronchitis versus bronchopneumonia. 4. Asthma, acute exacerbation. 5. Hypertension. 6. Possibly secondary polycythemia. 7. Hyperlipidemia. 8. Multiple medical issues. RECOMMENDATIONS AND DISCUSSION: Recommend to continue current medications and continue symptomatic treatment. Continue with bronchodilators and diuretics. Increase ambulation. Possible discharge within the next 24 hours. MMODL / IJN: [id number] /
[2022-12-23] MEDS: methylPREDNISolone SOD SUCCI 40 MG/ML 1 ML VIAL IV SCH ×3 (04:52→20:27)
[2022-12-23 06:13] LABS: Glucose,Whole Blood 128 mg/dL (70-110)
[2022-12-23] MEDS: INSULIN ASPART (NovoLOG) 100 UNIT/ML VIAL SQ SCH ×4 (06:13→20:43)
[2022-12-23] MEDS: VIT A,C & E-LUTEIN-MINERALS 1 EACH TAB PO SCH ×2 (06:23→14:51)
[2022-12-23] MEDS: LEVOTHYROXINE 100 MCG TAB PO SCH (06:23)
--- NOTE | 2022-12-23 07:15 | XR ---
EXAMINATION TYPE: XR chest 2V DATE OF EXAM: 12/23/2022 COMPARISON: 12/21/2022 HISTORY: Shortness of breath TECHNIQUE: Frontal and lateral views of the chest are obtained. FINDINGS: Scattered senescent parenchymal changes noted. Hyperinflation compatible with COPD. Basilar infiltrates persist without significant change. Heart size is stable. Mediastinal structures are stable and grossly unremarkable. No evidence for hilar prominence. Degenerative changes dorsal spine. IMPRESSION: 1. Basilar infiltrates persist without significant change.
[2022-12-23] MEDS: IPRATROPIUM-ALBUTEROL 3 ML NEB INHALATION SCH ×3 (08:43→23:19)
[2022-12-23] MEDS: BUDESONIDE 1 MG/2 ML NEBU INHALATION SCH ×2 (08:43→23:19)
[2022-12-23] MEDS: FORMOTEROL FUMARATE 20 MCG/2 ML NEBU INHALATION SCH ×2 (08:43→23:19)
[2022-12-23] MEDS: ALPRAZolam 0.5 MG TAB PO SCH ×2 (08:53→20:27)
[2022-12-23] MEDS: METOPROLOL SUCCINATE (ER) 50 MG TAB.ER.24H PO SCH ×2 (08:53→20:27)
[2022-12-23] MEDS: ASPIRIN 81 MG PO SCH (08:53)
[2022-12-23] MEDS: ATORVASTATIN 20 MG TAB PO SCH (08:53)
[2022-12-23] MEDS: FUROSEMIDE 40 MG TAB PO SCH ×2 (08:54→14:51)
[2022-12-23] MEDS: amLODIPine 5 MG TAB PO SCH ×2 (08:54→20:27)
[2022-12-23] MEDS: POTASSIUM CHLORIDE ER 10 MEQ TAB.ER.PRT PO SCH (08:54)
[2022-12-23] MEDS: MONTELUKAST 10 MG TAB PO SCH (08:54)
[2022-12-23] MEDS: lisinopriL 20 MG TAB PO SCH (08:54)
[2022-12-23] MEDS: metFORMIN 500 MG TAB PO SCH (08:54)
--- NOTE | 2022-12-23 11:26 | P.PN ---
Subjective Progress Note Date: 12/23/22 Principal diagnosis: Pneumonia. This is a pleasant 82-year-old female patient who has a history of mild intermittent chronic bronchial asthma, hypertension, hyperlipidemia, chronic obstructive pulmonary disease, former smoker, carotid artery disease with previous left carotid endarterectomy, coronary artery disease with chronic subtotal occlusions, anxiety. She was brought into the emergency room on 12/18/2022 after developing worsening shortness of breath, cough and congestion. She was also having lower extremity swelling. She is oxygen dependent normally on 3 L/m per nasal cannula. Chest x-ray reveals cardiomegaly with chronic emphysematous changes and tiny bilateral pleural effusions. White count 6.4. Hemoglobin 17.4. Pletal it's 188. Sodium 136. Potassium 3.7. Bicarb 35. BUN 21. Creatinine 0.85. Focused on 0.10. Influenza screen negative. COVID-19 screen negative. RSV screen negative. She's been initiated on Symbicort, albuterol, Singulair. Antibiotics in the form of ceftriaxone. Initiated on IV diuretics. Currently in a -2.5 L balance. She is seen today in consultation on the selective care unit. Currently sitting up in bed. Awake and alert in no acute distress. Feeling a bit better today compared to yesterday. Quinine 6 L high flow nasal cannula to maintain O2 saturation the high 80s low 90s. Afebrile. Hemodynamically stable. Reevaluated today on 12/21/2022, patient is feeling a bit better today compared to yesterday, nonetheless remains congested continues to cough and continues to have shortness of breath. She is on 6 L nasal cannula with O2 sats is 93%. Her WBC count is 6.4 hemoglobin is 17.4 basic metabolic profile is normal broken started level is upper limits of normal, vital screen for influenza A and influenza B RSV and COVID-19 came back negative chest x-ray continues show bilateral asymmetric interstitial infiltrates/edema with small pleural effusions BNP level on admission was 8600. The patient is seen today 12/22/2022 in follow-up on the selective care unit. She is up ambulating in her room. Awake and alert in no acute distress. Feeling better today compared to yesterday. Maintaining O2 saturations in the 90s on [address] angiogram revealed no evidence of pulmonary embolism. Marketed emphysematous changes. Findings suggestive CHF. Blood cultures revealed no growth. White count 5.1. Hemoglobin 18.8. Platelets 199. Sodium 137. Potassium 4.6. Bicarb 32. BUN 28. Creatinine 0.97. She is on DuoNeb inhalations, Pulmicort and Perforomist inhalations, IV Solu-Medrol, Singulair. Remains on oral diuretics. No accurate I&O. Antibiotics in the form of ceftriaxone. Progress note dated 12/23/2022. The patient is seen today in room 380. The patient's doing well. The patient continues on oxygen at 4 L. The patient is not receiving any IV fluids. The patient does have oxygen at home. Currently, she states that she is feeling better. Lab data today includes a glucose of 128. She was tested for coronavirus yesterday, and it turned out negative. Blood cultures are negative. Chest x-ray shows no change, with bibasilar infiltrates present. Objective - Vital Signs Vital signs: Vital Signs Temp 98.0 F 12/23/22 04:00 Pulse 88 12/23/22 09:08 Resp 18 12/23/22 08:00 BP 140/65 12/23/22 08:00 Pulse Ox 96 12/23/22 08:00 FiO2 60 12/18/22 15:22 Intake & Output 12/22/22 12/23/22 12/23/22 18:59 06:59 18:59 Intake Total 1350 118 Output Total 300 Balance 1050 118 Weight 68.9 kg Intake: Oral 1350 118 Output: Urine 300 Other: Voiding Method Bedside Commode Bedside Commode - Exam No acute distress, oriented 3. Currently on 4 L of oxygen. No audible wheezing or use of accessory muscles. HEENT examination is grossly unremarkable. Mucous membranes are moist. No oral lesions. Neck supple. Full range of motion. No adenopathy thyromegaly or neck vein distention. Cardiovascular examination reveals regular rhythm rate. S1-S2 normal. No S3 or S4. No discernible murmur noted. Heart sounds are distant. Heart rate 88 bpm. Lungs reveal mostly clear breath sounds. Minimal scattered rhonchi. No wheezes or crackles appreciated. Breath sounds are equal bilaterally. Saturations are adequate. Abdomen soft bowel sounds are heard. No masses or tenderness. Extremities are intact. No cyanosis clubbing or edema. Skin is without rash or lesion. Neurologic examination is brief but nonfocal. - Labs CBC & Chem 7: 12/22/22 08:28 12/22/22 08:28 Labs: Abnormal Lab Results - Last 24 Hours (Table) 12/22/22 12/22/22 12/22/22 Range/Units 11:49 16:40 20:13 POC Glucose (mg/dL) 123 H 140 H 185 H (70-110) mg/dL 12/23/22 Range/Units 06:12 POC Glucose (mg/dL) 128 H (70-110) mg/dL Microbiology - Last 24 Hours (Table) 12/18/22 14:40 Blood Culture - Preliminary Blood No Growth after 96 hours 12/18/22 14:25 Blood Culture - Preliminary Blood No Growth after 96 hours Assessment and Plan Assessment: Acute on chronic hypoxemic respiratory failure secondary to an acute exacerbation of her chronic obstructive pulmonary disease and an acute exacerbation of diastolic congestive heart failure. History of mild intermittent chronic bronchial asthma. History of chronic obstructive pulmonary disease maintained on oxygen at 3 L in the outpatient setting. Hypertension. Hyperlipidemia. Diabetes mellitus. History of coronary artery disease with chronic occlusion. Former smoker. Plan: Plan dated 12/23/2022. The patient continues on bronchodilators and corticosteroids. She continues on oxygen. The patient is a DO NOT RESUSCITATE patient. The patient is pretty much at baseline and could be considered for possible discharge by the primary service. We will leave that up to them. Labs, x-rays, and medications are all reviewed. Prognosis is certainly guarded. Time with Patient: Less than 30
--- NOTE | 2022-12-23 11:34 | P.PN ---
Subjective Progress Note Date: 12/23/22 HISTORY OF PRESENT ILLNESS: This is a 82-year-old female with a past medical history significant for congestive heart failure, coronary artery disease, hypertension, hyperlipidemia, and diabetes. Patient follows in the office with Dr. Silverio. We have been asked to see the patient in consultation for CHF. Patient examined at the bedside. patient states she has been feeling short of breath for the past 3 weeks. She states her shortness of breath got worse the past couple days so she came to the emergency room for further evaluation. The patient was found to be in congestive heart failure. She was started on IV Lasix. The patient denies any chest pain or pressure. She denies any shortness of breath. Vital signs are stable. * EKG reveals sinus mechanism with no signs of acute ischemia. Nonspecific ST-T wave changes * Chest xray persistent cardiomegaly and chronic emphysematous change with small bilateral pleural effusions with left greater than right. Stable to guillermina vielka improved left basilar infiltrate and/or atelectasis. * Laboratory data: WBC 6.4. Hemoglobin 14.7. Platelet count 188. Sodium 136. Potassium 3.7. BUN 21. Creatinine 0.85. ProBNP 8600. * Current home cardiac medications include Lasix 40 mg daily, amlodipine 5 mg twice a day, lisinopril 20 mg daily, aspirin 325 mg daily, simvastatin 40 mg daily * Most recent echocardiogram obtained in November 2021 revealed ejection fraction 55-60%, moderate mitral regurgitation, mild tricuspid regurgitation, mild to moderate pulmonary hypertension * Cardiac catheterization history: September 2010 revealing chronic subtotal occlusion of distal circumflex and right PLV. Mild disease in LAD, RCA, OM 1 12/21/2022 Patient examined this morning at the bedside. Patient denies chest pain or pressure. She continues to report shortness of breath. She remains on nasal cannula. She remains on IV Lasix 40 mg every 12 hours. Creatinine is stable at 0.77. Echocardiogram completed revealing ejection fraction 55-60% 12/22/2022 Patient examined this morning the bedside. Patient denies chest pain or pressure. She denies improvement in her shortness of breath. She was able to get in the shower this morning. She remains on IV Lasix. Vital signs are stable. She underwent a CTA yesterday which was negative for PE 12/23 patient is seen today in follow-up. She states she is less short of breath and has been ambulating in her room. She has been transitioned to oral Lasix yesterday. Repeat chest x-ray reveals basilar infiltrates persist. Patient is also followed by pulmonary medicine. PHYSICAL EXAM: VITAL SIGNS: Reviewed. GENERAL: Well-developed in no acute distress. HEENT: Head is normocephalic. Pupils are equal, round. Sclerae anicteric. Mucous membranes of the mouth are moist. Neck supple. No JVD or thyromegaly LUNGS: Respirations even and unlabored. Lungs diminished bilaterally HEART: Regular rate and rhythm. S1 and S2 heard. ABDOMEN: Soft. Nondistended. Nontender. EXTREMITIES: Normal range of motion. No clubbing or cyanosis. Peripheral p ulses intact. No lower extremity edema NEUROLOGIC: Awake and alert. Oriented x 3. ASSESSMENT: Shortness of breath Acute on chronic heart failure with preserved ejection fraction, EF 55-60% Acute exacerbation of COPD Coronary artery disease Hypertension Hyperlipidemia Diabetes PLAN: Pulmonary following for COPD exacerbation Daily weights, accurate I&O, and monitoring of kidney function Continue home cardiac medications and current dose of Lasix Patient is cleared for discharge from cardiology and may follow up in the office [facility] Dr. Silverio in 1 week. Cardiology will sign off and follow on an as-needed basis. Please re-consult if any new issues. Nurse practitioner note has been reviewed by physician. Signing provider agrees with the documented findings, assessment, and plan of care. Objective - Vital Signs Vital signs: Vital Signs Temp 98.0 F 12/23/22 04:00 Pulse 88 12/23/22 09:08 Resp 18 12/23/22 08:00 BP 140/65 12/23/22 08:00 Pulse Ox 96 12/23/22 08:00 FiO2 60 12/18/22 15:22 Intake & Output 12/22/22 12/23/22 12/23/22 18:59 06:59 18:59 Intake Total 1350 118 Output Total 300 Balance 1050 118 Weight 68.9 kg Intake: Oral 1350 118 Output: Urine 300 Other: Voiding Method Bedside Commode Bedside Commode - Labs CBC & Chem 7: 12/22/22 08:28 12/22/22 08:28 Labs: Abnormal Lab Results - Last 24 Hours (Table) 12/22/22 12/22/22 12/22/22 Range/Units 11:49 16:40 20:13 POC Glucose (mg/dL) 123 H 140 H 185 H (70-110) mg/dL 12/23/22 Range/Units 06:12 POC Glucose (mg/dL) 128 H (70-110) mg/dL Microbiology - Last 24 Hours (Table) 12/18/22 14:40 Blood Culture - Preliminary Blood No Growth after 96 hours 12/18/22 14:25 Blood Culture - Preliminary Blood No Growth after 96 hours
[2022-12-23 11:36] LABS: Glucose,Whole Blood 210 mg/dL (70-110)
[2022-12-23 13:34] VITALS: BMI 26.9
[2022-12-23] MEDS: ACETAMINOPHEN TAB 325 MG TAB PO PRN (14:50)
--- NOTE | 2022-12-23 16:21 | P.PN ---
Subjective Progress Note Date: 12/23/22 Principal diagnosis: Possible pneumonia Patient is 82-year female with a past medical history negative for asthma/COPD hypertension hyperlipidemia GA and history of pneumonia patient presenting to the ER for evaluation of increasing shortness of breath that apparently has been getting worse for the last 3 weeks symptom mostly shortness of breath on minimal exertion and at rest patient also have a cough, patient did have abnormal x-ray question of possible pneumonia. on today's evaluation that is 12/23/2022, the patient remains to be afebrile, the patient is currently breathing comfortably on 4 L nasal cannula, the patient denies having any chest pain minimal cough dry in nature no nausea no vomiting no abdominal pain or diarrhea Objective - Vital Signs Vital signs: Vital Signs Temp 98.0 F 12/23/22 04:00 Pulse 83 12/23/22 12:45 Resp 18 12/23/22 12:45 BP 140/65 12/23/22 08:00 Pulse Ox 96 12/23/22 08:00 FiO2 60 12/18/22 15:22 Intake & Output 12/22/22 12/23/22 12/23/22 18:59 06:59 18:59 Intake Total 1350 236 Output Total 300 Balance 1050 236 Weight 68.9 kg Intake: Oral 1350 236 Output: Urine 300 Other: Voiding Method Bedside Commode Bedside Commode - Exam GENERAL DESCRIPTION: An elderly female lying in bed in no distress RESPIRATORY SYSTEM: Unlabored breathing , decreased breath sounds at bases HEART: S1 S2 regular rate and rhythm , ABDOMEN: Soft , no tenderness EXTREMITIES: No edema feet - Labs CBC & Chem 7: 12/22/22 08:28 12/22/22 08:28 Labs: Abnormal Lab Results - Last 24 Hours (Table) 12/22/22 12/22/22 12/23/22 Range/Units 16:40 20:13 06:12 POC Glucose (mg/dL) 140 H 185 H 128 H (70-110) mg/dL 12/23/22 Range/Units 11:34 POC Glucose (mg/dL) 210 H (70-110) mg/dL Microbiology - Last 24 Hours (Table) 12/18/22 14:40 Blood Culture - Preliminary Blood No Growth after 96 hours 12/18/22 14:25 Blood Culture - Preliminary Blood No Growth after 96 hours Assessment and Plan (1) Abnormal chest x-ray Current Visit: Yes Status: Acute Code(s): R93.89 - ABNORMAL FINDINGS ON DX IMAGING OF OTH BODY STRUCTURES SNOMED Code(s): 589915370 Plan: 1patient presented to the hospital with increasing shortness of breath with her lower extremity edema patient was noted to be hypoxic chest x-ray mostly currently with effusion more likely related to underlying cardiac etiology clinic suspicious low for underlying pneumonia in this patient with no fever elevated white count and procalcitonin only 0.10, possible component of COPD exacerbation with tracheobronchitis not excluded, clinically not behaving as pneumonia and especially with a normal inflammatory markers , we will discontinue Rocephin and monitor the patient closely off antibiotic therapy Time with Patient: Less than 30
[2022-12-23 16:22] LABS: Glucose,Whole Blood 93 mg/dL (70-110)
[2022-12-23 20:39] LABS: Glucose,Whole Blood 131 mg/dL (70-110)
[2022-12-23] MEDS ORDERED: MELATONIN 3 MG TABLET PO SCH (23:45)
--- NOTE | 2022-12-23 23:47 | P.PN ---
Subjective Progress Note Date: 12/23/22 Patient is a 82-year-old female was admitted to the hospital due to worsening shortness of breath. Currently being treated for an acute CHF exacerbation and COPD exacerbation. 12/23/2022 Patient is currently resting in the bed. Awake alert and oriented but states that she feels weak and breathing status is improving. Currently requiring oxygen at 3 L via nasal cannula which is her home regimen. No complaints of fever or chills. No chest pain. Denies any cough or sputum production. Currently being continued on IV Solu-Medrol 40 mg every 8 hourly and Lasix was changed to 40 mg twice daily p.o. Laboratory data is not available today. Blood sugar is fairly controlled. Blood cultures negative so far. Current medications reviewed. Objective - Vital Signs Vital signs: Vital Signs Temp 98.1 F 12/23/22 20:00 Pulse 91 12/23/22 20:00 Resp 18 12/23/22 20:00 BP 152/84 12/23/22 20:00 Pulse Ox 92 L 12/23/22 20:00 FiO2 60 12/18/22 15:22 Intake & Output 12/23/22 12/23/22 12/24/22 06:59 18:59 06:59 Intake Total 476 Output Total 600 Balance -124 Weight 68.9 kg 68.9 kg Intake: Oral 476 Output: Urine 600 Other: Voiding Method Bedside Commode Bedside Commode # Voids 1 - Exam PHYSICAL EXAMINATION: Patient is lying in the bed comfortably, no acute distress, awake alert and oriented.. HEENT: Normocephalic. Neck is supple. Pupils reactive. Nostrils clear. Oral cavity is moist. Neck reveals no JVD, carotid bruits, or thyromegaly. CHEST EXAMINATION: Trachea is central. Symmetrical expansion. Mild expiratory wheeze. No rhonchi or crackles. CARDIAC: Normal S1, S2 with no gallops. No murmurs ABDOMEN: Soft. Bowel sounds present. Nontender. No organomegaly. No abdominal bruits. Extremities: reveal no edema. No clubbing or cyanosis Neurologically awake, alert, oriented x3 with well-coordinated movements. No focal deficits noted Skin: No rash or skin lesions. Psychiatric: Coperative. Nonsuicidal, Musculoskeletal: No joint swelling or deformity. Normal range of motion. - Labs CBC & Chem 7: 12/22/22 08:28 12/22/22 08:28 Labs: Abnormal Lab Results - Last 24 Hours (Table) 12/23/22 12/23/22 12/23/22 Range/Units 06:12 11:34 20:37 POC Glucose (mg/dL) 128 H 210 H 131 H (70-110) mg/dL Microbiology - Last 24 Hours (Table) 12/18/22 14:40 Blood Culture - Preliminary Blood No Growth after 120 hours 12/18/22 14:25 Blood Culture - Preliminary Blood No Growth after 120 hours Assessment and Plan Assessment: Acute on chronic hypoxic respiratory failure secondary to COPD exacerbation and acute on chronic CHF with preserved ejection fraction. Chronic hypoxic respiratory failure requiring oxygen at 3 L via nasal cannula. Coronary artery disease with chronic occlusion Hypertension Hyperlipidemia Diabetes type 2 [id number] Prior history of smoking DVT prophylaxis with heparin subcu Plan: Patient will be continued on oxygen supplementation currently at 3 L via nasal cannula. Continue with Solu-Medrol 40 mg every 8 hourly and will be changed to prednisone in the next 24 hours. Lasix was changed to 40 g p.o. twice daily. Continue with DuoNealysia, Pulmicort and Perforomist. Currently on aspirin and statins. Pulmonary, ID and cardiology is on board. Patient is being monitored off antibiotics. Continue to follow closely. Possible discharge tomorrow. Follow-up CBC and BMP. Time with Patient: Greater than 30
[2022-12-23] MEDS: HEPARIN SODIUM,PORCINE/PF 5,000 UNIT/0.5 ML SYRINGE SQ SCH (23:48)
[2022-12-24 04:29] VITALS: TEMP 97.9
[2022-12-24] MEDS: methylPREDNISolone SOD SUCCI 40 MG/ML 1 ML VIAL IV SCH ×2 (04:30→12:29)
[2022-12-24 06:11] LABS: Glucose,Whole Blood 123 mg/dL (70-110)
[2022-12-24] MEDS: INSULIN ASPART (NovoLOG) 100 UNIT/ML VIAL SQ SCH ×2 (06:12→12:29)
[2022-12-24] MEDS: VIT A,C & E-LUTEIN-MINERALS 1 EACH TAB PO SCH (06:15)
[2022-12-24] MEDS: LEVOTHYROXINE 100 MCG TAB PO SCH (06:15)
[2022-12-24] MEDS: IPRATROPIUM-ALBUTEROL 3 ML NEB INHALATION SCH ×2 (08:50→12:56)
[2022-12-24] MEDS: BUDESONIDE 1 MG/2 ML NEBU INHALATION SCH (08:50)
[2022-12-24] MEDS: FORMOTEROL FUMARATE 20 MCG/2 ML NEBU INHALATION SCH (08:50)
[2022-12-24] MEDS: METOPROLOL SUCCINATE (ER) 50 MG TAB.ER.24H PO SCH (09:00)
[2022-12-24] MEDS: MONTELUKAST 10 MG TAB PO SCH (09:00)
[2022-12-24] MEDS: amLODIPine 5 MG TAB PO SCH (09:00)
[2022-12-24] MEDS: metFORMIN 500 MG TAB PO SCH (09:00)
[2022-12-24] MEDS: lisinopriL 20 MG TAB PO SCH (09:00)
[2022-12-24] MEDS: POTASSIUM CHLORIDE ER 10 MEQ TAB.ER.PRT PO SCH (09:00)
[2022-12-24] MEDS: HEPARIN SODIUM,PORCINE/PF 5,000 UNIT/0.5 ML SYRINGE SQ SCH (09:00)
[2022-12-24] MEDS: ATORVASTATIN 20 MG TAB PO SCH (09:00)
[2022-12-24] MEDS: ASPIRIN 81 MG PO SCH (09:00)
[2022-12-24] MEDS: ALPRAZolam 0.5 MG TAB PO SCH (09:00)
[2022-12-24] MEDS: FUROSEMIDE 40 MG TAB PO SCH (09:00)
[2022-12-24 09:03] VITALS: BP 155/73; RESP 16
[2022-12-24 09:07] LABS: Basophils % (A) 0 %; Eosinophils % (A) 0 %; HGB 18.6 gm/dL (11.4-16.0); Lymphocytes # (A) 0.3 k/uL (1.0-4.8); Lymphocytes % (A) 4 %; MCH 27.7 pg (25.0-35.0); MCHC 31.9 g/dL (31.0-37.0); MCV 86.8 fL (80.0-100.0); Mean Platelet Volume 7.7; Monocytes # (A) 0.3 k/uL (0-1.0); Monocytes % (A) 4 %; Neutrophils # (A) 7.2 k/uL (1.3-7.7); Neutrophils % (A) 91 %; Platelet Count 188 k/uL (150-450); RBC 6.71 m/uL (3.80-5.40); RDW 15.6 % (11.5-15.5); WBC 7.9 k/uL (3.8-10.6)
[2022-12-24 09:13] VITALS: PULSE 84
[2022-12-24 09:21] LABS: HCT 58.2 % (34.0-46.0)
[2022-12-24 09:26] LABS: Calcium 9.1 mg/dL (8.4-10.2)
[2022-12-24 11:38] LABS: Glucose,Whole Blood 118 mg/dL (70-110)
--- NOTE | 2022-12-24 12:20 | P.PN ---
Subjective Progress Note Date: 12/24/22 Principal diagnosis: Pneumonia. This is a pleasant 82-year-old female patient who has a history of mild intermittent chronic bronchial asthma, hypertension, hyperlipidemia, chronic obstructive pulmonary disease, former smoker, carotid artery disease with previous left carotid endarterectomy, coronary artery disease with chronic subtotal occlusions, anxiety. She was brought into the emergency room on 12/18/2022 after developing worsening shortness of breath, cough and congestion. She was also having lower extremity swelling. She is oxygen dependent normally on 3 L/m per nasal cannula. Chest x-ray reveals cardiomegaly with chronic emphysematous changes and tiny bilateral pleural effusions. White count 6.4. Hemoglobin 17.4. Pletal it's 188. Sodium 136. Potassium 3.7. Bicarb 35. BUN 21. Creatinine 0.85. Focused on 0.10. Influenza screen negative. COVID-19 screen negative. RSV screen negative. She's been initiated on Symbicort, albuterol, Singulair. Antibiotics in the form of ceftriaxone. Initiated on IV diuretics. Currently in a -2.5 L balance. She is seen today in consultation on the selective care unit. Currently sitting up in bed. Awake and alert in no acute distress. Feeling a bit better today compared to yesterday. Quinine 6 L high flow nasal cannula to maintain O2 saturation the high 80s low 90s. Afebrile. Hemodynamically stable. Reevaluated today on 12/21/2022, patient is feeling a bit better today compared to yesterday, nonetheless remains congested continues to cough and continues to have shortness of breath. She is on 6 L nasal cannula with O2 sats is 93%. Her WBC count is 6.4 hemoglobin is 17.4 basic metabolic profile is normal broken started level is upper limits of normal, vital screen for influenza A and influenza B RSV and COVID-19 came back negative chest x-ray continues show bilateral asymmetric interstitial infiltrates/edema with small pleural effusions BNP level on admission was 8600. The patient is seen today 12/22/2022 in follow-up on the selective care unit. She is up ambulating in her room. Awake and alert in no acute distress. Feeling better today compared to yesterday. Maintaining O2 saturations in the 90s on [address] angiogram revealed no evidence of pulmonary embolism. Marketed emphysematous changes. Findings suggestive CHF. Blood cultures revealed no growth. White count 5.1. Hemoglobin 18.8. Platelets 199. Sodium 137. Potassium 4.6. Bicarb 32. BUN 28. Creatinine 0.97. She is on DuoNeb inhalations, Pulmicort and Perforomist inhalations, IV Solu-Medrol, Singulair. Remains on oral diuretics. No accurate I&O. Antibiotics in the form of ceftriaxone. Progress note dated 12/23/2022. The patient is seen today in room 380. The patient's doing well. The patient continues on oxygen at 4 L. The patient is not receiving any IV fluids. The patient does have oxygen at home. Currently, she states that she is feeling better. Lab data today includes a glucose of 128. She was tested for coronavirus yesterday, and it turned out negative. Blood cultures are negative. Chest x-ray shows no change, with bibasilar infiltrates present. Progress note dated 12/24/2022. 82-year-old female seen today in room 380. The patient's doing recently well. She remains on oxygen at 3 L. She's not receiving any IV fluids. The patient states that she is feeling better. Currently, white count 7.9, hemoglobin 18.6, hematocrit 58.2, and platelet count 188,000. Sodium 133, potassium 5, chlorides 95, CO2 27, BUN 36, creatinine 0.73. Objective - Vital Signs Vital signs: Vital Signs Temp 97.9 F 12/24/22 04:00 Pulse 84 12/24/22 09:13 Resp 16 12/24/22 08:00 BP 155/73 12/24/22 08:00 Pulse Ox 97 12/24/22 08:00 FiO2 60 12/18/22 15:22 Intake & Output 12/23/22 12/24/22 12/24/22 18:59 06:59 18:59 Intake Total 476 118 Output Total 600 700 250 Balance -124 -700 -132 Weight 68.9 kg 69.5 kg Intake: Oral 476 118 Output: Urine 600 700 250 Other: Voiding Method Bedside Commode Bedside Commode # Voids 1 - Exam No acute distress, oriented 3. Currently on 3 L of oxygen. No audible wheezing or use of accessory muscles. HEENT examination is grossly unremarkable. Mucous membranes are moist. No oral lesions. Neck supple. Full range of motion. No adenopathy thyromegaly or neck vein distention. Cardiovascular examination reveals regular rhythm rate. S1-S2 normal. No S3 or S4. No discernible murmur noted. Heart sounds are distant. Heart rate 84 bpm. Lungs reveal mostly clear breath sounds. Minimal scattered rhonchi. No wheezes or crackles appreciated. Breath sounds are equal bilaterally. Saturations are adequate. Abdomen soft bowel sounds are heard. No masses or tenderness. Extremities are intact. No cyanosis clubbing or edema. Skin is without rash or lesion. Neurologic examination is brief but nonfocal. - Labs CBC & Chem 7: 12/24/22 07:53 12/24/22 07:53 Labs: Abnormal Lab Results - Last 24 Hours (Table) 12/23/22 12/24/22 12/24/22 Range/Units 20:37 06:09 07:53 RBC 6.71 H (3.80-5.40) m/uL Hgb 18.6 H (11.4-16.0) gm/dL Hct 58.2 H* (34.0-46.0) % RDW 15.6 H (11.5-15.5) % Lymphocytes # 0.3 L (1.0-4.8) k/uL Sodium (137-145) mmol/L Chloride (98-107) mmol/L BUN (7-17) mg/dL Glucose (74-99) mg/dL POC Glucose (mg/dL) 131 H 123 H (70-110) mg/dL 12/24/22 12/24/22 Range/Units 07:53 11:35 RBC (3.80-5.40) m/uL Hgb (11.4-16.0) gm/dL Hct (34.0-46.0) % RDW (11.5-15.5) % Lymphocytes # (1.0-4.8) k/uL Sodium 133 L (137-145) mmol/L Chloride 95 L (98-107) mmol/L BUN 36 H (7-17) mg/dL Glucose 144 H (74-99) mg/dL POC Glucose (mg/dL) 118 H (70-110) mg/dL Microbiology - Last 24 Hours (Table) 12/18/22 14:40 Blood Culture - Preliminary Blood No Growth after 120 hours 12/18/22 14:25 Blood Culture - Preliminary Blood No Growth after 120 hours Assessment and Plan Assessment: Acute on chronic hypoxemic respiratory failure secondary to an acute exacerbation of her chronic obstructive pulmonary disease and an acute exacerbation of diastolic congestive heart failure. History of mild intermittent chronic bronchial asthma. History of chronic obstructive pulmonary disease maintained on oxygen at 3 L in the outpatient setting. Hypertension. Hyperlipidemia. Diabetes mellitus. History of coronary artery disease with chronic occlusion. Former smoker. Plan: Plan dated 12/23/2022. The patient continues on bronchodilators and corticosteroids. She continues on oxygen. The patient is a DO NOT RESUSCITATE patient. The patient is pretty much at baseline and could be considered for possible discharge by the primary service. We will leave that up to them. Labs, x-rays, and medications are all reviewed. Prognosis is certainly guarded. Plan dated 12/24/2022. The patient is seen and examined, and room 380. She's been weaned down to 3 L of oxygen. Her saturations are in the mid 90s. She's not receiving any IV fluids. The patient is a DO NOT RESUSCITATE patient. Labs, x-rays, and medications are reviewed. Overall prognosis remains guarded. We will continue to follow the patient and make recommendations along the way. Possible discharge in the next 24-48 hours. Time with Patient: Less than 30
== END 2022-12-24 13:01 | disposition home or self-care (01) | DRG 291 ==
LOC: EC 11:50 → 3SCARD 14:25
PROVIDERS: ADMIT Hospitalist; ATTEND Hospitalist
PROC: 5A09357 Assistance with Respiratory Ventilation, Less than 24 Consecutive Hours, Continuous Positive Airway Pressure (ICD-10-PCS; principal; 2022-12-18)
DX: I11.0 Hypertensive heart disease with heart failure (principal); I50.33 Acute on chronic diastolic (congestive) heart failure; J96.21 Acute and chronic respiratory failure with hypoxia; J45.21 Mild intermittent asthma with (acute) exacerbation; E78.5 Hyperlipidemia, unspecified; D75.1 Secondary polycythemia; Z87.01 Personal history of pneumonia (recurrent); Z87.891 Personal history of nicotine dependence; I25.10 Atherosclerotic heart disease of native coronary artery without angina pectoris; I25.2 Old myocardial infarction; I27.20 Pulmonary hypertension, unspecified; J43.9 Emphysema, unspecified; I08.1 Rheumatic disorders of both mitral and tricuspid valves; K44.9 Diaphragmatic hernia without obstruction or gangrene; F41.9 Anxiety disorder, unspecified; Z99.81 Dependence on supplemental oxygen; Z20.822 Contact with and (suspected) exposure to COVID-19; Z66 Do not resuscitate; Z79.51 Long term (current) use of inhaled steroids; Z79.82 Long term (current) use of aspirin; Z79.84 Long term (current) use of oral hypoglycemic drugs; Z79.890 Hormone replacement therapy; Z79.899 Other long term (current) drug therapy; Z82.49 Family history of ischemic heart disease and other diseases of the circulatory system; Z60.2 Problems related to living alone; Z83.6 Family history of other diseases of the respiratory system; Z71.3 Dietary counseling and surveillance; Z91.041 Radiographic dye allergy status; Z91.040 Latex allergy status; Z28.21 Immunization not carried out because of patient refusal; Z88.0 Allergy status to penicillin
CPT/HCPCS: 36415; 71045; 71046; 71275; 80048; 80053; 83735; 83880; 84145; 84484; 85025; 85379; 85610; 85730; 86140; 87040; 87635; 87636; 93005; 93306; 94640; 94660; 94760; 96365; 96366; 96375; 99285; 99291